=== PATIENT | female | born 1965 | race Caucasian/White ===

== ENCOUNTER → 2024-11-20 11:51 | Outpatient (REF) | payer OTHER, SELFPAY | LOC: ANHLAB 11:51 | PROVIDERS: Visit Provider Plastic Surgery | DX: C44.622 Squamous cell carcinoma of skin of right upper limb, including shoulder (principal) | CPT/HCPCS: 88305 ==

== ENCOUNTER → 2024-12-11 14:26 | Outpatient (REF) | payer OTHER, SELFPAY | LOC: ANHLAB 14:26 | PROVIDERS: Visit Provider Plastic Surgery | DX: R22.0 Localized swelling, mass and lump, head (principal) | CPT/HCPCS: 88305 ==

== ENCOUNTER 2024-12-28 01:59 | Day surgery (SDC) | payer OTHER, SELFPAY ==
[2024-12-14 15:56] VITALS: BMI 23.9
--- OUTSIDE RECORDS SUMMARY | 2024-12-28 02:04 | XMS_ITS | Referral Summary ---
Author Organization [facility] Physician Office Building [address] [place] [address] Care Team Providers Care Manager Specialty Name Role Phone Kailash Morse MD Unavailable Lizeth Daniels NP Primary Care Provider [phone]- [phone] Encounters Date Type Department Care Team Description 11/23/2024 Telephone [facility] [place] [facility] [address] [address] Kailash Morse MD Test Results 11/09/2024 Orders Only [facility] [place] [facility] [address] [address] Kailash Morse MD from Last 3 Months Allergies No known active allergies Medications lysine (L-LYSINE) 500 mg capsule take one by oral route twice a day 0 01/26/2012 Active aspirin (ASPIR-81) 81 mg tablet take 1 tablet by oral route every day 0 0 03/19/2015 Active famciclovir (FAMVIR) 500 mg tablet take 1 tablet (500MG) by oral route every 8 hours prn 0 03/19/2015 Active CALTRATE WITH VITAMIN D3 600 mg(1,500mg) -800 unit per tablet 09/04/2019 Active cholecalciferol (VITAMIN D-3) 5,000 unit capsule 09/04/2019 Active alendronate (FOSAMAX) 35 mg tablet 2 tablets (70 mg total) 09/04/2019 Active NOT IN DATABASE, PRESCRIPTION, Drug name: Restore soft gel capsul Dose: unknown Route: oral Frequency: BID Duration: Active vit D3-vit Y-srhayssfl-eri s [id number] eawg-kky-qs-mg tablet Take by mouth Active omega 5-vfh-zbb-fish oil 1,000 mg (120 mg-180 mg) capsule Active mvi, adult no.2 without vit K 3,300 unit-200 unit/10 mL solution Infuse into a venous catheter Active calcium dhbq-B3-ggbvksf um asia 133 mg calcium -133 unit-67 mg capsule Take by mouth Active Active Problems Problem Noted Date Diagnosed Date Non-toxic multinodular goiter 04/14/2014 Overview (03/03/2017): NONTOX MULTINODUL GOITER Assessment & Plan (07/19/2024 4:55 PM CDT): Chronic, stable without any obstructive symptoms Thyroid ultrasound today does not show any dominant, solid nodule that needs to be biopsied Follow-up in 3 years recommended Assessment & Plan (09/09/2021 4:30 PM CDT): Thyroid ultrasound done today, showed no difference in the size or appearance of the multiple bilateral nodules, when compared with ultrasound done in 2019. Will follow-up in 2 years Assessment & Plan (09/07/2019 4:09 PM CDT): Thyroid ultrasound done today See report No dominant nodules over 1 cm in size Check TSH If normal follow-up in 2- 3 year Social History Tobacco Use Types Packs/Day Years Used Date Smoking Tobacco: Never Smokeless Tobacco: Never Alcohol Use Standard Drinks/Week Comments No 0 (1 standard drink = 0.6 oz pur e alcohol) AUDIT-C Answer Date Recorded Q1: How often do you have a drink containing alcohol? Never 07/19/2024 Q2: How many drinks containi ng alcohol do you have on a typical day when you are drinking? Patient does not drink Q3: How often do you have si x or more drinks on one occasion? Never 07/19/2024 PHQ-2 Answer Date Recorded PHQ-2 Total Score (If total score is 3 or more points, staff should administer the PHQ-9) 0 07/19/2024 Comments Unknown Sex and Gender Information Value Date Recorded Sex Assigned at Not on file Legal Sex Female 1:16 AM INTERNATIONAL FIRST OFFICER Gender Identity Not on file Sexual Orientation Straight 07/19/2024 11 :17 AM CDT Last Filed Vital Signs Vital Sign Reading Time Taken Comments Blood Pressure 98/62 07/19/2024 11:18 AM CDT Pulse 70 07/19/2024 11:18 AM CDT Temperature - - Respiratory Rate 17 07/19/2024 11:18 AM CDT Oxygen Saturation - - Inhaled Oxygen Concentration - - Weight 69.2 kg (152 lb 9.6 oz) 07/19/2024 11:18 AM CDT Height 165.1 cm (5' 5 ) 07/19/2024 11:18 AM CDT Body Mass Index 25.39 07/19/2024 11:18 AM CDT Plan of Treatment Not on file Procedures Procedure Name Priority Date/Time Associated Diagnosis Comments TSH Routine 11/09/2024 12:53 PM INTERNATIONAL FIRST OFFICER SCREENING MAMMOGRAM BILATERAL W PRINCE 06/11/2020 6:57 AM CDT from Last 3 Months or Most Recently Relevant to Health Maintenance Results * TSH (11/09/2024 12:53 PM INTERNATIONAL FIRST OFFICER) TSH 0.74 0.40 - 4.50 mIU/L [facility] 11/09/2024 12:5 3 PM INTERNATIONAL FIRST OFFICER 11/09/2024 12:53 PM INTERNATIONAL FIRST OFFICER Kailash Morse MD LAB BLOOD ORDERABLES Final Resul t [facility] [address] [place] [address] * Screening Mammogram Bilateral W Prince (06/11/2020 6:57 AM CDT) Anatomical Region Laterality Modality Breast Bilateral Mammography 06/11/2020 7:23 AM CDT Narrative 06/18/2020 1:24 PM CDT Patient Name: ZE DE LA FUENTE ?Ordering Dr: Lizeth Daniels CNP ?? D.O.B: 1965 ? Exam Date: 06/11/ ?? 0657 ?? Age: 55 ?Sex: Female ? MR#: [id number] ?? Loc: ? RADIOLOGY REPORT ?? Order #[id number] ?? [facility] ? Aimee Bilat Screening 3D ? Signed ?- MG ?? BILATERAL DIGITAL SCREENING MAMMOGRAM 3D/2D WITH MEDIOLATERAL OBLIQUE ?? CRANIOCAUDAL: 06/11/2020 ?? The study was acquired using full field digital technology and interpreted from ?soft copy. ?2D digital mammographic views, as well as 3D digital tomosynthesis were ?? performed in the CC and MLO projections. ? CLINICAL: Routine mammogram. Patient denies any problems. Mother with breast ?? cancer. No personal history of breast cancer.Maternal and paternal aunt also ?? had breast cancer. ? COMPARISONS: Comparison is made to exams dated: ??02/23/2019 mammogram, 02/16/2019 ?mammogram, 12/08/2017 mammogram, 07/26/2014 mammogram, 07/13/2014 mammogram - ?? [facility], and 09/01/2019 breast MRI. ? BREAST TISSUE: The tissue of both breasts is heterogeneously dense, which may ?? obscure small masses. ? FINDINGS: ?? There are multiple, bilateral, similar-appearing, round and oval, ?? circumscribed masses. ??These have fluctuated in comparison with multiple prior ?? exams and are consistent with benign fluctuating cysts. They are considered to ?? be benign based on their multiplicity, bilaterality, and morphology. ??There are ?no suspicious masses, suspicious calcifications, or other suspicious findings ?? in either breast. ??There has been no suspicious interval change. ? IMPRESSION: BI-RAD 2 ??BENIGN ?? There is no mammographic evidence of malignancy. A 1 year screening mammogram ?? is recommended. ? The patient has been or will be contacted. ? We recommend annual screening mammography for women at average risk of breast ?? cancer beginning at age 40, based on guidelines of the [place] [employer] ?? [employer] (ACR Practice Parameter for the Performance of Screening and ?? Diagnostic Mammography) and [place] [employer]st[employer]ians and ?? Gynecologists. For women with an elevated risk of breast cancer, please refer ?? to the ACR Practice Parameter for specific screening recommendations. ? The patient will be entered into a reminder system with a target due date of 1 ?? year for her next screening exam. ? Electronically signed by: ?Yanick Lemons M.D. ? ab/:06/18/2020 13:24:45 ? Collector Of Port: Judith HASSAN(Juan)(M), [facility] ?? letter sent: Normal Exam ? Reading location: ?? BI-RADS: 2 Benign ? REPORT ELECTRONICALLY SIGNED IN OTHER VENDOR SYSTEM ?? Resulting Agency Comment O Procedure Note Yanick Lemons MD - 06/18/2020 Patient Name: ZE DE LA FUENTE Zelalemjose Dr: Lizeth Daniels CNP, D.O.B: 1965 Exam Date: 06/11/20 0657 Age: 55 Sex: Female MR#: [id number] Loc: RADIOLOGY REPORT Order #[id number] [facility] Aimee Bilat Screening 3D Signed - MG BILATERAL DIGITAL SCREENING MAMMOGRAM 3D/2D WITH MEDIOLATERAL OBLIQUE CRANIOCAUDAL: 06/11/2020 The study was acquired using full field digital technology andinterpreted from soft copy. 2D digital mammographic views, as well as 3D digital tomosynthesis were performed in the CC and MLO projections. CLINICAL: Routine mammogram. Patient denies any problems. Mother withbreast cancer. No personal history of breast cancer.Maternal and paternal auntalso had breast cancer. COMPARISONS: Comparison is made to exams dated: 02/23/2019 mammogram,02/16/2019 mammogram, 12/08/2017 mammogram, 07/26/2014 mammogram, 07/13/2014 mammogram- House, and 09/01/2019 breast MRI. BREAST TISSUE: The tissue of both breasts is heterogeneously dense, whichmay obscure small masses. FINDINGS: There are multiple, bilateral, similar-appearing, round andoval, circumscribed masses. These have fluctuated in comparison with multipleprior exams and are consistent with benign fluctuating cysts. They areconsidered to be benign based on their multiplicity, bilaterality, and morphology.There are no suspicious masses, suspicious calcifications, or other suspiciousfindings in either breast. There has been no suspicious interval change. IMPRESSION: BI-RAD 2 BENIGN There is no mammographic evidence of malignancy. A 1 year screeningmammogram is recommended. The patient has been or will be contacted. We recommend annual screening mammography for women at average risk ofbreast cancer beginning at age 40, based on guidelines of the [place] [employer] (ACR Practice Parameter for the Performance of Screening and Diagnostic Mammography) and [place] [employer] and Gynecologists. For women with an elevated risk of breast cancer, pleaserefer to the ACR Practice Parameter for specific screening recommendations. The patient will be entered into a reminder system with a target due dateof 1 year for her next screening exam. Electronically signed by: Yanick Lemons M.D. ab/:06/18/2020 13:24:45 Collector Of Port: Judith HASSAN (R)(Iban), [facility] letter sent: Normal Exam Reading location: BI-RADS: 2 Benign REPORT ELECTRONICALLY SIGNED IN OTHER VENDOR SYSTEM Lizeth Daniels NP IMG MAMMO PROCEDURES Final Result from Last 3 Months or Most Recently Relevant to Health Maintenance Insurance [facility] Care Teams Manager Specialty Relationship Specialty Start Date End Date Lizeth Daniels NP [address] [place] [address] PCP - General 06/11/20 [place] [id number] [facility] [address] [place] [address] Consulting Physician Endocrinology Diabetes & Metabolism 12/12/18
--- OUTSIDE RECORDS SUMMARY | 2024-12-28 02:04 | XMS_ITS | Clinical Summary ---
Author Organization [facility] Physician Office Building [address] [place] [address] Care Team Providers Care Profile Stitching Machine Operator Name Role Phone Kailash Morse MD Unavailable Lizeth Daniels NP Primary Care Provider +1- [phone] Allergies No known active allergies Medications lysine [...] oral Frequency: BID Duration: Active vit D3-vit E-ldtrstdry-doe s [phone] tlmo-wnk-iu-mg tablet Take by mouth Active omega 3-hjo-sjw-fish oil 1,000 mg (120 mg-180 mg) capsule Active mvi, adult no.2 without vit K 3,300 unit-200 unit/10 mL solution Infuse into a venous catheter Active calcium rqvp-W9-ennjriy um asia 133 mg calcium -133 unit-67 [...] If normal follow-up in 2- 3 year Encounters Date Type Department Care Team Description 11/23/2024 Telephone [facility] of [address] [address] Kailash Morse MD Test Results 11/09/2024 Orders Only [facility] of [address] [address] Kailash Morse MD from Last 3 Months Surgical History Surgery Date Site/Laterality Comments OTHER SURGICAL HISTORY 2011 polyp in uterus removed Medical History Medical History Date Comments Disorder of thyroid Thyroid dise ase Osteoporosis Family History Medical History Relation Name Comments Hypothyroidism Other Family histor y of Hypothyroidism; Relation Name Status Comments Other Social History Tobacco Use Types Packs/Day Years [...] on file Legal Sex Female 1:16 AM AS400 ADMINISTRATOR Gender Identity Not on file Sexual Orientation Straight 07/19/2024 11 :17 AM CDT Obstetrics History Last Filed Vital Signs Vital Sign Reading [...] 07/19/2024 11:18 AM CDT Plan of Treatment Health Maintenance Due Date Last Done Comments Cervical Cancer Screening 1965 Colon Cancer Screening-Colonoscopy 1965 Hepatitis C Screening 1965 Regular Well Visit/Exam 18-64 1982 Breast Cancer Screening-Mammogram 06/11/2021 06/11/2020 DTaP/Tdap/Td Vaccine (2 - Td or Tdap) 09/01/2022 09/01/2012, 10/22/1999 Influenza Vaccine (#1) 2024 9, 09/04/2018, 10/07/2017, Additional history exists Depression Screening 07/19/2025 07/19/2024, 09/09/2021, 09/07/2019 Zoster Vaccine Completed 04/14/2019, 12/14/2018 Pneumococcal vaccine <65 Aged Out No longer eligible based on patient's age to complete this topic Procedures Procedure Name Priority Date/Time Associated Diagnosis Comments TSH Routine 11/09/2024 12:53 PM AS400 ADMINISTRATOR SCREENING MAMMOGRAM BILATERAL W PRINCE 06/11/2020 6:57 AM CDT from Last 3 Months or Most Recently Relevant to Health Maintenance Results * TSH (11/09/2024 12:53 PM AS400 ADMINISTRATOR) TSH 0.74 0.40 - 4.50 mIU/L [facility] 11/09/2024 12:5 3 PM AS400 ADMINISTRATOR 11/09/2024 12:53 PM AS400 ADMINISTRATOR us Kailash Morse MD LAB BLOOD ORDERABLES Final Resul t [facility] [address] [place] [address] * Screening Mammogram Bilateral W Prince (06/11/2020 6:57 AM CDT) Anatomical Region Laterality Modality Breast Bilateral Mammography 06/11/2020 7:23 AM CDT Narrative 06/18/2020 1:24 PM CDT Patient Name: ZE DE LA FUENTE ?Ordering Dr: Lizeth Daniels CENTURA TECHNICAL LEAD SENIOR DEVELOPER ?? D.O.B: 1965 ? Exam Date: 06/11/20 ?? 0657 ?? Age: 55 ?Sex: Female ? MR#: [id number] ?? Loc: ? RADIOLOGY REPORT ?? Order #[id number] ?? [facility] ? Aimee Bilat Screening 3D ? Signed [...] mammogram, 07/26/2014 mammogram, 07/13/2014 mammogram - ?? [facility], and 09/01/2019 breast MRI. ? BREAST [...] age 40, based on guidelines of the [place] [employer] ?? [employer] (ACR Practice Parameter for the Performance of Screening and ?? Diagnostic Mammography) and [place] [employer]ians and ?? Gynecologists. For women with an elevated risk of breast cancer, please refer ?? to the ACR Practice Parameter for specific screening recommendations. ? The patient will be entered into a reminder system with a target due date of 1 ?? year for her next screening exam. ? Electronically signed by: ?Yanick Lemons M.D. ? ab/:06/18/2020 13:24:45 ? Drug Abuse Worker: Judith Shultz RT(R)(M), [facility] ?? letter sent: Normal Exam ? Reading location: ?? BI-RADS: 2 Benign ? REPORT ELECTRONICALLY SIGNED IN OTHER VENDOR SYSTEM ?? Resulting Agency Comment O Procedure Note Yanick Lemons MD - 06/18/2020 Patient Name: ZE DE LA FUENTE Bryanna Dr: Lizeth Daniels CNP, D.O.B: 1965 Exam Date: 06/11/20 0657 Age: 55 Sex: Female MR#: [id number] Loc: RADIOLOGY REPORT Order #[id number] [facility] Aimee Bilat Screening 3D Signed - MG [...] mammogram, 12/08/2017 mammogram, 07/26/2014 mammogram, 07/13/2014 mammogram- [place], and 09/01/2019 breast MRI. BREAST TISSUE: The [...] age 40, based on guidelines of the [place] [employer] (ACR Practice Parameter for the Performance of Screening and Diagnostic Mammography) and [place] [employer] and Gynecologists. For women with an elevated risk of breast cancer, pleaserefer to the ACR Practice Parameter for specific screening recommendations. The patient will be entered into a reminder system with a target due dateof 1 year for her next screening exam. Electronically signed by: Yanick Lemons M.D. ab/:06/18/2020 13:24:45 Drug Abuse Worker: Judith HAYES)(Iban), [facility] letter sent: Normal Exam Reading location: BI-RADS: 2 Benign REPORT ELECTRONICALLY SIGNED IN OTHER VENDOR SYSTEM Lizeth Daniels NP IMG MAMMO PROCEDURES Final Result from Last 3 Months or Most Recently Relevant to Health Maintenance Insurance [facility] Care Teams Profile Stitching Machine Operator Relationship Specialty Start Date End Date Lizeth Daniels NP [address] [place] [address] PCP - General 06/11/20 [place] [address] [address] [place] [address] Consulting Physician Endocrinology Diabetes & Metabolism 12/12/18
--- OUTSIDE RECORDS SUMMARY | 2024-12-28 02:05 | XMS_ITS | Continuity of Care Document ---
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 It does not include entries that were removed or entered in error. Problem Status Onset Date Problem Type Date of Resolution Comments Source Other specified counseling Active 10/24/20 Diagnosis -375 [facility] Other signs and symptoms in breast Active 10/24/20 Diagnosis - [facility] Other ovarian cyst, right side Active 10/24/20 Diagnosis - [facility] [place] Acne Active Condition [facility] Allergic rhinitis Active Condition [facility] Endometrial polyp with abnormal uterine bleeding Active Condition [facility] Eustachian tube disorder Active Condition [facility] Herpes simplex type 1 infection Active Condition [facility] Lateral epicondylitis of left humerus Active Condition [facility] Lateral epicondylitis of right humerus Active Condition [facility] Leiomyoma of uterus Active Condition [facility] Localized osteoporosis [[place]] Active Condition [facility] Nontoxic nodular thyroid goiter Active Condition [facility] Osteoarthritis Active Condition [facility] Overweight Active Condition [facility] Vitamin D deficiency Active Condition [facility] Lateral epicondylitis, right elbow Active Condition DoD Lateral epicondylitis, left elbow Active Condition DoD Nontoxic single thyroid nodule Active Condition DoD endometrial polyps Active Condition DoD Administrative Evaluation Services Inactive Condition DoD Outpatient Physician Consultation Active Condition DoD menometrorrhagia Active Condition DoD menopause Active Condition DoD nontoxic solitary thyroid nodule Active Condition DoD telogen effluvium Inactive Condition DoD Alopecia Inactive Condition DoD visit for: screening exam malignant neoplasm breast Inactive Condition DoD routine gynecological exam Inactive Condition DoD pharyngitis acute Inactive Condition DoD visit for: issue repeat prescription for medication Inactive Condition DoD ovarian cyst right Active Condition DoD menorrhagia Active Condition DoD dysfunctional uterine bleeding Active Condition DoD Test Negative Inactive Condition DoD ovarian cyst Active Condition DoD uterine neoplasm, benign leiomyoma Active Condition DoD vitamin D deficiency Active Condition DoD irregular length of menstrual periods Active Condition DoD visit for: single system exam gynecological Inactive Condition DoD visit for: refer patient without exam or treatment Inactive Condition DoD sebaceous cyst Active Condition DoD lump in / on the skin Active Condition DoD Family history of malignant neoplasm of breast Active Condition DoD thyroid disorders Active Condition DoD herpes simplex Inactive Condition DoD limb pain Active Condition DoD neck sprain Inactive Condition DoD overweight Active Condition DoD lymphadenopathy Active Condition DoD dermatitis Active Condition DoD skin: rash [as Sx] Active Condition DoD visit for: follow-up exam Active Condition Pt has made full recovery. 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 Pt may now rely on Essure as control method. DoD visit for: sterilization Inactive Condition DoD conjunctivitis Inactive Condition DoD upper respiratory infection acute Inactive Condition DoD Mammogram Screening Inactive Condition D oD Cervical Pap Smear Inactive Condition Do D Pelvic Exam (Internal) Active Condition DoD otitis media Inactive Condition tx empiricially DoD bronchitis Active Condition continue zyrtec-D as previously prescribed DoD eustachian tube dysfunction Active Condition Pt to continue to take Zyrtec-D and will start pt on Flonase - pt to follow-up if not doing better in 5 days. DoD otitis media acute serous Inactive Condition DoD Need For Vaccination Hepatitis B Inactive Condition DoD acne Active Condition DoD visit for: issue repeat prescription Inactive Condition pt to ca ll PCM for refill of meds DoD routine gynecological exam with cervical pap smear Inactive Condition DoD herpes simplex type I Active Condition DoD visit for: screening exam for malignant neoplasm cervix Active Condition DoD Gynecologic Services Contraceptive Management Inactive Condition discussed bc methods; pt doesn;t desire anything hormonal; would like to consider essure; appt with MD scheduled to discuss essure DoD visit for: administrative purpose Inactive Condition DoD Need For Vaccination Against Influenza Active Condition DoD sudden redness of the skin (flushing) Inactive Condition Check la bs for metabolic cause. DoD allergic rhinitis Active Condition Qiu spect is cause of eye swelling. Rx as below. SE d/w pt. DoD visit for: contraceptive surveillance Active Condition REFERRAL TO SPEECH THERAPY TEACHER FOR EVALUATION FOR BTL DoD Medications Combined list of outpatient medications from Department of Defense and Veterans Affairs facilities.Medications provided include 1) outpatient medications from the last 15 months, and 2) patient-reported medications. Medication Details Route Status Patient Instructions Prescription Expires Prescription Number Last Dispense Date Ordering Provider Order Date Order Qty Source [facility] oral capsule 0 total refill(s ), Maintena cte Ordered 0055C-[address] [place] [address] alendronate (U/D) 70 MG ORAL TAB Take on empty stomach. Take only with water.Ta ke with water first thing in AM. Stay up 30 min. 05/18/2024 [id number] 3 [address] [place] [address] ([facility]) alendronate 70 mg oral tablet TAKE ONE TABLET BY MOUTH ONCE A WEEK DIRECTED , # 12 EA, 1 total refill(s ), Acute Discont inued 05/19/2023 12.0 Ambulat ory Pharmac y alendronate 70 mg oral tablet TAKE ONE TABLET BY MOUTH ONCE A WEEK DIRECTED , Oral, every week, # 12 EA, 4 total refill(s ), Acute, Pharmacy : [facility] Oral (given by mouth) Complet ed 05/19/2024 12.0 0055C-3 [facility] [place] alendronate 70 mg oral tablet 12 tab(s), 0 Refill(s ), 0 total refill(s ), Soft Stop Cancele d 05/29/2024 0055C-3 [facility] [place] aspirin 81 mg oral delayed release tablet 81 mg, ORAL, 1 Refill(s ), 0 total refill(s ), Soft Stop Discont inued 05/29/2024 0055C-3 [facility] [place] aspirin 81 mg oral delayed release tablet 1 tab(s), Oral, Daily, # 90 tab(s), 3 total refill(s ), Maintena nce, Pharmacy : [facility] Oral (given by mouth) Ordered 90.0 0055C-3 [facility] [place] ASPIRIN EC (U/D) 81 MG ORAL TBEC Take with food/mil amanda.Swallo w whole. 05/18/2024 [id number] 3 [address] [place] [address] ([facility]) Aspirin Low Dose 81 mg oral delayed release tablet 90 tab(s), 0 total refill(s ), Soft Stop Discont inued 05/19/2023 0055C-3 [facility] [place] calcium (as carbonate) 500 mg oral tablet See Instruct ions, t1 tab po bid, # 180 tab(s), 3 total refill(s ), Maintena nce, Pharmacy : [facility] Ordered 180.0 [facility] calcium (as carbonate) 600 mg oral tablet 180 tab(s), 0 total refill(s ), Soft Stop Discont inued 05/19/2023 0055C-[address] [place] [address] [place] Calcium Carbonate (Elemental Calcium 500 mg) Tablet 1,250 mg Oral 05/18/2024 [id number] 3 2023 180 [facility] [place] RUIZ ([facility]) Caltrate 600 + D oral tablet 0 Refill(s ), 0 total refill(s ), Soft Stop Discont inued 05/29/2024 0055C-3 [facility] [place] CertaVite Senior oral tablet 90 tab(s), 0 total refill(s ), Soft Stop Discont inued 05/29/2024 0055C-[address] [place] [address] [place] cholecalcif olvin 125 mcg (5000 intl units) oral capsule 0 Refill(s ), 0 total refill(s ), Soft Stop Discont inued 05/29/2024 0055C-[address] [place] [address] [place] diclofenac 1% topical gel See instruct ions, Apply 2 grams (upper extremit ies) or 4 grams (lower extremit ies) to affected area topicall y four times daily as needed for pain. Max total body dose of 32 grams per day, # 100 g, 0 total refill(s ), Maintena nce Discont inued 05/19/2023 100.0 0055C-[address] [place] [address] [place] FAMCICLOVIR (FAMCICLOVI R), 500 MG, TABLET, ORAL, WIDIP, 30 ea. BOTTLE Active [id number] 2023 30 Pharmac y [facility] Service Facilit y famciclovir 500 mg oral tablet 30 EA, 0 Refill(s ), 0 total refill(s ), Soft Stop Ordered 0055C-[address] [place] [address] [place] famciclovir 500 mg oral tablet 3 total refill(s ) Discont inued 05/29/2024 No Facilit y Access FLUARIX QUAD 4072-2267 (influenza virus vaccine quadrival 8513-4019(6 mos and up)/PF), 60MCG/.5ML, FLUARIX QUAD 202 2 (influen za virus vaccine quadriva l 2020- 2(6 mos and up)/PF), 60MCG/.5 ML, Start Date: 09/16/21 Stop Date: 05/19/23 Status: Disconti nued Discont inued 05/19/2023 No Facilit y Access FLUCELVAX QUAD (flu vaccine quad (4 years and older)cell derived/PF) , 60MCG/.5ML FLUCELVA X QUAD 1 (flu vaccine quad 1(4 years and older)ce ll derived/ PF), 60MCG/.5 ML Start Date: 09/11/20 Stop Date: 05/19/23 Status: Disconti nued Discont inued 05/19/2023 No Facilit y Access Fosamax 35 mg oral tablet tab(s), Oral, every week, 0 total refill(s ), Maintena nce Oral (given by mouth) Discont inued 05/12/2023 0055C-3 [facility] Fosamax 70 mg oral tablet 1 tab(s), Oral, every week, with 6 to 8 ounces plain water, at least 30 minutes before first food, beverage , or medicati on of the day, # 12 tab(s), 3 total refill(s ), Maintena nce, Pharmacy : [facility] Oral (given by mouth) Ordered 12.0 0055C-3 [facility] lysine 500 mg oral capsule 500 mg, Oral, BID, 0 total refill(s ), Maintena nce Oral (given by mouth) Ordered 0055C-3 [facility] magnesium amino acids chelate Oral, 0 Refill(s ), 0 total refill(s ), Soft Stop Oral (given by mouth) Discont inued 10/24/2024 0055C-3 [facility] miscellaneo us medication 90 tab(s), 0 total refill(s ), Soft Stop Discont inued 05/19/2023 0055C-3 [facility] Motrin IB 200 mg oral tablet 2 tab(s), Oral, every 4 hr, PRN fever, # 120 tab(s), 0 total refill(s ), Maintena nce Oral (given by mouth) Ordered 120.0 0055C-3 [facility] [place] Multivitami n oral tablet 1 tab(s), Oral, Daily, # 90 tab(s), 3 total refill(s ), Maintena [facility], Pharmacy : [facility] Oral (given by mouth) Ordered 90.0 [facility] multivitami [facility] with minerals tablet multivit asher with minerals tablet Start Date: 04/24/21 Stop Date: 05/19/23 Status: Disconti nued Discont inued 05/19/2023 No Facilit y Access omega-3 polyunsatur ated fatty acids 1000 mg oral capsule omega-3 polyunsa turated fatty acids 1000 mg oral capsule Start Date: 07/14/21 Status: Ordered Ordered No Facilit y Access Oyster Hailey 1250 mg (500 mg elemental calcium) oral tablet 180 tab(s), 0 Refill(s ), 0 total refill(s ), Soft Stop Discont inued 05/29/2024 0055C-3 [facility] [place] Vitamin D2 50 mcg (2000 intl units) oral capsule 2 cap(s), Oral, Daily, WH increase to 5000u pt has 1000u in her other daily MVI, 0 total refill(s ), Maintena nce Oral (given by mouth) Ordered 0055C-3 [facility] [place] Vitamin D3 0 total refill(s ), Maintena nce Discont inued 05/19/2023 0055C-3 [facility] [place] Vitamin D3 125 mcg (5000 intl units) oral capsule 1 cap(s), Oral, Daily, with food, # 90 cap(s), 2 total refill(s ), Maintena [facility], Pharmacy : [facility] Oral (given by mouth) Ordered 90.0 0055C-3 [facility] [place] Vitamin D3 50 mcg (2000 intl units) oral tablet 90 tab(s), 0 total refill(s ), Soft Stop Discont inued 10/24/2024 0055C-3 [facility] [place] Allergies, Adverse Reactions, Alerts Combined list of allergies from Department of Defense and Veterans Affairs facilities. It does not include entries that were removed or entered in error. Substance Category Reaction Severity Reaction type Status Date Reported Comments Source No Known Allergies Drug allergy (disorder) active 05/21/2023 [facility] RUIZ ([facility]) Immunizations Combined list of available immunizations from the Department of Defense and Veterans Affairs facilities. Immunization Series Date Given Administered By Site Reaction Lot Number CVX Code Drug Supply Requirements Officer Status Comments Source RSV vaccine preF3, recombinant 2023 DARLENERBRUNN ER 303 complet ed Result Comment: Route: Unknown Manufactu rer: OTH (SKB) 0055C-[address] [place] [address] [place] Influenza, injectable, MDCK-pf 2023 DARLENERBRUNN ER 153 complet ed Result Comment: Route: Unknown Manufactu rer: OTH (SEQ) 0055C-[address] [place] [address] [place] Influenza, inj, MDCK, quadrivalent- pf 2022 DARLENERBRUNN ER 171 complet ed Result Comment: Route: Unknown Manufactu rer: OTH (SEQ) 0055C-[address] [place] [address] [place] COVID-19 vaccine(Comir carolyn 12y+) 2022 DARLENERBRUNN ER 309 complet ed Result Comment: Route: Unknown Manufactu rer: OT (PFR) 0055C-[address] [place] [address] [place] tetanus, diphtheria, acellular pertu is 2021 DARLENERBRUNN ER 115 complet ed Result Comment: Route: Unknown Manufactu rer: H (SKB) 0055C-[address] [place] [address] [place] COVID-19 vaccine(Pfize r Bival 12yr+) 2021 DARLENERBRUNN ER 300 complet ed Result Comment: Route: Unknown Manufactu rer: OTH (PFR) 0055C-[address] [place] [address] [place] Influenza, inj, MDCK, quadrivalent- pf 2021 DARLENERBRUNN ER 171 complet ed Result Comment: Route: Unknown Manufactu rer: OTH (SEQ) 0055C-[address] [place] [address] COVID Vaccine Pfizer 2020 DARLENERBRUNN ER 208 complet ed Result Comment: Unit: Unknown Manufactu rer: [facility] [place] (P[facility] 0055C-[address] [place] [address] COVID-19, mRNA, LNP-S, PF, 30 mcg/0.3 mL dose 2020 [facility] [place] (PFR) Not Given COVID-19, mRNA, LNP-S, PF, 30 mcg/0.3 mL dose DoD influenza, injectable, quadrivalent- pf 2020 DARLENERBRUNN ER 150 complet ed Result Comment: Unit: Unknown Manufactu rer: () 5C-3 [facility] Gay influenza, injectable, quadrivalent, preservative free 2020 [place], () Not Given influenza , injectabl e, quadrival ent, preservat mykel free DoD influenza virus vaccine, unspecified 2019 DARLENERBRUNN ER 88 complet ed Result Comment: Route: Unknown Manufactu rer: OT (unk) 5C-3 [facility]- [place] Influenza, inj, MDCK, quadrivalent- pf 2019 DARLENERBRUNN ER 171 complet ed Result Comment: Unit: Unknown Manufactu rer: () 5C-3 [facility] [place] influenza virus vaccine, inactivated 2019 DARLENERBRUNN ER 88 complet ed Result Comment: Route: Unknown Manufactu rer: [facility] (SEQ) 5C-3 [facility]OLA- [place] Influenza, injectable, MDCK, preservative free, quadrivalent 2019 ALUL, () Not Given Influenza , injectabl e, MDCK, preservat mykel free, quadrival ent DoD influenza, injectable, quadrivalent- pf 2018 MS.DARLENEBRU NNER 150 complet ed Result Comment: Route: Unknown Manufactu rer: [facility] (SKB) 5C-[address] [place] [address]- [place] zoster vaccine, inactivated 2018 MS.DARLENEBRU NNER 187 complet ed Result Comment: Route: Unknown Manufactu rer: [facility] (SKB) 0055C-3 [facility] [place] zoster vaccine, inactivated 2018 MS.DARLENEBRU NNER 187 complet ed Result Comment: Unit: Unknown Manufactu rer: () 5C-3 [facility] [place] zoster recombinant 2018 ALUL, () Not Given zoster recombina nt DoD influenza, injectable, quadrivalent- pf 2017 MS.DARLENEBRU NNER 150 complet ed Result Comment: Route: Unknown Manufactu rer: [facility] (SEQ) 5C-3 [facility]ASH[facility]- [place] influenza, injectable, quadrivalent- pf 2015 Greyson t Arm [id number] Gl[employer]oSmithK[employer] ne complet ed influenza , injectabl e, quadrival ent-pf 09/23/16 Given Ambulat ory Pharmac y Influenza, injectable, quadrivalent, preservative free 1 2015 Unknown, Provider [id number] [facility] (SK) complet ed Influenza , injectabl e, quadrival ent, preservat mykel free DoD influenza, seasonal, injectable-pf 2014 DONOVAN ER 140 complet ed Result Comment: Unit: Unknown Manufactu rer: () 0055C-[address] [place] [address] Influenza, seasonal, injectable, preservative free 2014 TONYA, () Not Given Influenza , seasonal, injectabl e, preservat mykel free DoD influenza, seasonal, injectable 2013 zzLef t Arm [id number] Novartis Pharm[employer]ica complet ed influenza , seasonal, injectabl e 09/21/14 Given Ambulat ory Pharmac y Influenza, seasonal, injectable 1 2013 Unknown, Provider [id number] Novartis Pharmaceutica l Raquel. (NOV) complet ed Influenza , seasonal, injectabl e DoD influenza, seasonal, [facility]able [id number] sanofi pasteur complet ed influenza , seasonal, injectabl e 09/01/12 Given Ambulat ory Pharmac y tetanus, diphtheria, acellular pertu is 2011 zzLef t Arm [id number] 115 [facility] complet ed tetanus, diphtheri a, acellular pertussis 09/01/12 Given Ambulat ory Pharmac y tetanus toxoid, reduced diphtheria toxoid, and acellular pertu is vaccine, adsorbed 1 2011 Unknown, Provider [id number] 115 [facility] (B) complet ed tetanus toxoid, reduced diphtheri a toxoid, and acellular pertussis vaccine, adsorbed DoD Influenza, seasonal, injectable 8 2011 Unknown, Provider [id number] Sanofi Pasteur ([facility]) complet ed Influenza , seasonal, injectabl e DoD influenza, seasonal, injectable-pf 2010 zzLef t Arm [id number] sanofi pasteur complet ed influenza , seasonal, injectabl e-pf 10/08/11 Given Ambulat ory Pharmac y Influenza, seasonal, injectable, preservative free 7 2010 Unknown, Provider [id number] Sanofi Pasteur ([facility]) complet ed Influenza , seasonal, injectabl e, preservat mykel free DoD influenza virus vaccine, live 2008 [id number] [employer] complet ed influenza virus vaccine, live 09/30/09 Given Ambulat ory Pharmac y influenza virus vaccine, live, attenuated, for intranasal use 1 2008 Unknown, Provider [id number] 111 [employer] (MED) complet ed influenza virus vaccine, live, attenuate d, for intranasa l use DoD influenza virus vaccine,split 2007 zzLef t Arm [id number] 15 sanofi pasteur complet ed influenza virus vaccine,s plit 11/06/08 Given Ambulat ory Pharmac y influenza virus vaccine, split virus (incl. purified surface antigen)-reti red CODE 1 2007 Unknown, Provider [id number] 15 Sanofi Pasteur ([facility]) complet ed influenza virus vaccine, split virus (incl. purified surface antigen)- retired CODE DoD influenza virus vaccine,split 2005 zzLef t Arm [id number] 15 GlaxoSmithKli ne complet ed influenza virus vaccine,s plit 11/09/06 Given Ambulat ory Pharmac y influenza virus vaccine, split virus (incl. purified surface antigen)-reti red CODE 1 2005 Unknown, Provider [id number] 15 Cyndy (LAUREN) complet ed influenza virus vaccine, split virus (incl. purified surface antigen)- retired CODE [facility] hepatitis B adult vaccine 2005 zzLef t Arm [id number] 43 GlaxoSmithKli ne complet ed hepatitis B adult vaccine 09/01/06 Given Ambulat ory Pharmac y HepB, Adult 2005 LORILENERBRUNN ER [id number] 43 complet ed Result Comment: Route: Intramusc ular(IM) Manufactu rer: [place] vo (LAUREN) 0055C-3 [facility] [place] hepatitis B vaccine, adult dosage 2 2005 Unknown, Provider [id number] 43 Cyndy (LAUREN) complet ed hepatitis B vaccine, adult dosage [facility] hepatitis B adult vaccine 2005 zzLef t Arm [id number] 43 GlaxoSmithKli ne complet ed hepatitis B adult vaccine 8/17/06 Given Ambulat ory Pharmac y HepB, Adult 2005 DONOVAN ER [id number] 43 complet ed Result Comment: Route: Intramusc ular(IM) Manufactu rer: [employer] [employer] (LAUREN) 0055C-3 [facility] [place] hepatitis B vaccine, adult dosage 1 2005 Unknown, Provider [id number] 43 [employer]line (SKB) complet ed hepatitis B vaccine, adult dosage DoD influenza virus vaccine,split 2004 zzRig Arm [id number] 15 sanofi pasteur complet ed influenza virus vaccine,s plit 10/19/05 Given Ambulat ory Pharmac y influenza virus vaccine, split virus (incl. purified surface antigen)-reti red CODE 1 2004 Unknown, Provider [id number] 15 Sanofi Pasteur ([facility]) complet ed influenza virus vaccine, split virus (incl. purified surface antigen)- retired CODE DoD influenza virus [facility], [facility] virus [id number] Novartis Pharmaceutica ls complet ed influenza virus vaccine, whole virus 09/20/03 Given Ambulat ory Pharmac y influenza virus vaccine, whole virus 1 2002 Unknown, Provider [id number] [employer] ls (PWJ) complet ed influenza virus vaccine, whole virus DoD influenza virus vaccine, whole virus [facility] [id number] [employer] complet ed influenza virus vaccine, whole virus 10/04/02 Given Ambulat ory Pharmac y influenza virus vaccine, whole virus 1 2001 Unknown, Provider [id number] 16 [facility] (WAL) complet ed influenza virus vaccine, whole virus [facility] tetanus-dipht h toxoids (Td) adult/adol [facility] [id number] complet ed tetanus-d iphth toxoids (Td) adult/ado l 10/22/99 Given Ambulat ory Pharmac y tetanus and diphtheria toxoids, adsorbed, preservative free, for adult use (2 Lf of tetanus toxoid and 2 Lf of diphtheria toxoid) 1 1998 Unknown, Provider [id number] () complet ed tetanus and diphtheri a toxoids, adsorbed, preservat myekl free, for adult use (2 Lf of tetanus toxoid and 2 Lf of diphtheri a toxoid) DoD Results Combined list of recent chemistry, hematology and other laboratory results from Department of Defense and Veterans Affairs, ranging from 15 months to all on record, depending upon the facility. Order Name Results Value Reference Range Date Interpretation Specimen Comments Source Chemistry Vitamin D 25 OH 69 ng/mL 30 - 100 12/19 N Interpretiv e Data: Classificat ion of Vitamin D Status: Deficient: <20 ng/mL Insufficien t: 20-29 ng/mL Sufficient: 30-100 ng/mL Possible Toxicity: >100 ng/mL This assay is for the quantitativ e determinati on of total 25 (OH) vitamin D. It is intended as an aid in the determinati on of vitamin D sufficiency . Results should always be interpreted in conjunction with the patient's medical history, clinical presentatio n, and other findings. Testing performed by [facility] [facility] smith. Ambulator y Pharmacy Chemistry Triglycerid es 60 mg/dL 7 - 149 12/19 N Interpretiv e Data: AGES 0-9: Desirable: < 75 mg/dL Borderline High: 75-99 mg/dL High: >/= 100 mg/dL AGES 10-19: Desirable: < 90 mg/dL Borderline High: 90-129 mg/dL High: >/= 130 mg/dL ADULTS: Desirable: < 150 mg/dL Borderline High: 150-199 mg/dL High: >/= 240 mg/dL Very High: >/= 500 mg/dL Amb[facility] Pharm[facility] Chemistry LDL/HDL 2 12/19 [facility] Chemistry LDL 145 mg/dL 100 - 130 12/19 H Interpretiv e Data: AGES 0-19: Desirable: < 110 mg/dL Borderline High: 110-129 mg/dL High: >/= 130 mg/dL ADULTS: Desirable: <100 mg/dL Near/above optimal: 100-130 mg/dL Borderline High: 131-159 mg/dL High: 160-189 mg/dL Very High: e190 mg/dL Ambulator [facility] Pharmacy Chemistry HDL Cholesterol 62 mg/dL 40 - 59 12/19 H Interpretiv e Data: HDL (HIGH DENSITY LIPOPROTEIN ): ADULTS: Low: < 40 mg/dL High: >/= 60 mg/dL AGES 0 -19: Low: < 40 mg/dL Borderline Low: 40 - 45 mg/dL Acceptable: > 45 mg/dL [facility] Cholesterol Total 210 mg/dL 12/19 H Interpretiv e Data: According to the [place] [employer] : AGES 0-19: Desirable: < 170 mg/dL Borderline High: 170-199 mg/dL High Blood Cholesterol : >/= 200 mg/dL ADULTS: Desirable < 200 mg/dL Borderline High: 200-239 mg/dL High Blood Cholesterol : >/= 240 mg/dL [facility] Chol/HDL 3 mg/dL 12/19 [facility] eGFR CKD EPI 103 mL/min /1.73_ m2 09/01 Interpretiv e Data: Estimated Glomerular Filtration Rate (eGFR) calculated using the 2020 Chronic Kidney Disease-Epi demiology (CKD-EPI) Collaborati on creatinine equation; units of measure are mL/min/1.73 m2. Results are only valid for adults (>=18 years) whose serum creatinine is in steady state. eGFR calculation s are not valid for patients with acute kidney injury and for patients on dialysis. Creatinine- based estimates of kidney function may also be inaccurate in patients with reduced creatinine generation due to decreased muscle mass (e.g., malnutritio n, severe hypoalbumin emia, sarcopenia, chronic neuromuscul ar disease, amputations , severe heart failure or liver disease) and in patients with increased creatinine generation due to increased muscle mass (e.g., muscle builders, anabolic steroids) or increased dietary intake. CKD is diagnosed based on abnormaliti es of kidney structure or function, present for >3 months, with implication s for health and disease. CKD is classified and staged based on cause, eGFR and albuminuria (quantified as urine albumin to creatinine ratio). An eGFR >60 mL/min/1.73 m2 in the absence of increased urine albumin excretion or structural abnormaliti es does not CKD. eGFR provides only an estimate of measured GFR within +/- 30% for most patients. As mentioned, nutritional status and muscle mass, among many factors, may lead to inaccuracy in the estimate. Consider ordering the creatinine- cystatin C panel if better accuracy is needed for clinical decision-masoud kwan. eGFR (mL/min/1.7 3 m2) CKD stage Interpretat ion Normal 60-89 Mild decrease 45-59 Mild to moderate decrease 30-44 Moderate to severe decrease 15-29 Severe decrease <15 Kidney failure [facility] Hemoglobin A1c 5.3 % 4.0 - 5.6 09/01 N Interpretiv e Data: Normal: 4.0 - 5.6% Increased Risk: 5.7 - 6.4% Diabetic Range: e 6.5% For patients without diabetes, the normal range for the hemoglobin A1c test is between 4% and 5.6%. Hemoglobin A1c levels between 5.7% and 6.4% indicate increased risk of diabetes, and levels of 6.5% or higher indicate diabetes. Because studies have repeatedly shown that out-of-cont rol diabetes results in complicatio ns from the disease, the goal for people with diabetes is a hemoglobin A1c less than 7%. The higher the hemoglobin A1c, the higher the risks of developing complicatio ns related to diabetes. If confirmatio n is needed, consider recalling the patient and ordering Hemoglobin Electrophor esis. [facility] eAvg Glucose 105 mg/dL 09/01 [facility] Triglycerid es 78 mg/dL 7 - 149 09/01 N Interpretiv e Data: AGES 0-9: Desirable: < 75 mg/dL Borderline High: 75-99 mg/dL High: >/= 100 mg/dL AGES 10-19: Desirable: < 90 mg/dL Borderline High: 90-129 mg/dL High: >/= 130 mg/dL ADULTS: Desirable: < 150 mg/dL Borderline High: 150-199 mg/dL High: >/= 240 mg/dL Very High: >/= 500 mg/dL [facility] LDL/HDL 3 09/01 [facility] LDL 137 mg/dL 100 - 130 09/01 H Interpretiv e Data: AGES 0-19: Desirable: < 110 mg/dL Borderline High: 110-129 mg/dL High: >/= 130 mg/dL ADULTS: Desirable: <100 mg/dL Near/above optimal: 100-130 mg/dL Borderline High: 131-159 mg/dL High: 160-189 mg/dL Very High: e190 mg/dL [facility] HDL Cholesterol 52 mg/dL 40 - 59 09/01 N Interpretiv e Data: HDL (HIGH DENSITY LIPOPROTEIN ): ADULTS: Low: < 40 mg/dL High: >/= 60 mg/dL AGES 0 -19: Low: < 40 mg/dL Borderline Low: 40 - 45 mg/dL Acceptable: > 45 mg/dL [facility] Cholesterol Total 195 mg/dL 09/01 N Interpretiv e Data: According to the [place] [employer] : AGES 0-19: Desirable: < 170 mg/dL Borderline High: 170-199 mg/dL High Blood Cholesterol : >/= 200 mg/dL ADULTS: Desirable < 200 mg/dL Borderline High: 200-239 mg/dL High Blood Cholesterol : >/= 240 mg/dL [facility] Chol/HDL 4 mg/dL 09/01 [facility] Phosphorus 3.1 mg/dL 2.3 - 4.7 09/01 N [facility] Sodium 141 mmol/L 136 - 145 09/01 N [facility] Potassium Lvl 4.1 mmol/L 3.5 - 5.1 09/01 N [facility] Glucose Lvl 88 mg/dL 74 - 99 09/01 N [facility] Creatinine Level 0.60 mg/dL 0.57 - 1.11 09/01 N [facility] CO2 27 mmol/L 22 - 29 09/01 N [facility] Chloride 106 mmol/L 98 - 107 09/01 N [facility] Calcium 9.4 mg/dL 8.4 - 10.2 09/01 N [facility] BUN/Creat Ratio 33 mg/dL 12 - 20 09/01 H [facility] BUN 20 mg/dL 7 - 20 09/01 N [facility] Albumin 3.70 g/dL 3.50 - 5.20 09/01 N [facility] AGAP 8.00 0.00 - 15.00 09/01 N [facility] Vitamin D 25 OH 44.9 ng/mL 30.0 - 100.0 05/29 N Interpretiv e Data: Classificat ion of Vitamin D Status: Deficient: <20 ng/mL Insufficien t: 20-29 ng/mL Sufficient: 30-100 ng/mL Possible Toxicity: >100 ng/mL This assay is for the quantitativ e determinati on of total 25 (OH) vitamin D. It is intended as an aid in the determinati on of vitamin D sufficiency . Results should always be interpreted in conjunction with the patient's medical history, clinical presentatio n, and other findings. Testing performed by [employer]. [facility] TSH 0.588 mIU/L 0.270 - 4.200 05/29 N Interpretiv e Data: Recommend: TPO/Thyrope roxidase Antibody when TSH result is > 4.2 uIU/mL [facility] Triglycerid es 94 mg/dL 7 - 149 05/29 N Interpretiv e Data: AGES 0-9: Desirable: < 75 mg/dL Borderline High: 75-99 mg/dL High: >/= 100 mg/dL AGES 10-19: Desirable: < 90 mg/dL Borderline High: 90-129 mg/dL High: >/= 130 mg/dL ADULTS: Desirable: < 150 mg/dL Borderline High: 150-199 mg/dL High: >/= 240 mg/dL Very High: >/= 500 mg/dL [facility] LDL/HDL 2 05/29 [facility] LDL 173 mg/dL 100 - 130 05/29 H Interpretiv e Data: AGES 0-19: Desirable: < 110 mg/dL Borderline High: 110-129 mg/dL High: >/= 130 mg/dL ADULTS: Desirable: <100 mg/dL Near/above optimal: 100-130 mg/dL Borderline High: 131-159 mg/dL High: 160-189 mg/dL Very High: e190 mg/dL [facility] HDL Cholesterol 71 mg/dL 40 - 59 05/29 H Interpretiv e Data: HDL (HIGH DENSITY LIPOPROTEIN ): ADULTS: Low: < 40 mg/dL High: >/= 60 mg/dL AGES 0 -19: Low: < 40 mg/dL Borderline Low: 40 - 45 mg/dL Acceptable: > 45 mg/dL [facility] Cholesterol Total 217 mg/dL 05/29 H Interpretiv e Data: According to the [place] [employer] : AGES 0-19: Desirable: < 170 mg/dL Borderline High: 170-199 mg/dL High Blood Cholesterol : >/= 200 mg/dL ADULTS: Desirable < 200 mg/dL Borderline High: 200-239 mg/dL High Blood Cholesterol : >/= 240 mg/dL [facility] Chol/HDL 3 mg/dL 05/29 [facility] Hemoglobin A1c 5.7 % 4.0 - 5.6 05/29 H Interpretiv e Data: Normal: 4.0 - 5.6% Increased Risk: 5.7 - 6.4% Diabetic Range: e 6.5% For patients without diabetes, the normal range for the hemoglobin A1c test is between 4% and 5.6%. Hemoglobin A1c levels between 5.7% and 6.4% indicate increased risk of diabetes, and levels of 6.5% or higher indicate diabetes. Because studies have repeatedly shown that out-of-cont rol diabetes results in complicatio ns from the disease, the goal for people with diabetes is a hemoglobin A1c less than 7%. The higher the hemoglobin A1c, the higher the risks of developing complicatio ns related to diabetes. If confirmatio n is needed, consider recalling the patient and ordering Hemoglobin Electrophor esis. [facility] eAvg Glucose 117 mg/dL 05/29 [facility] Vital Signs Combined list of inpatient and outpatient Vital Signs from Department of Defense and Veterans Affairs, ranging from 12 months to all on record, depending upon the facility. Vital Sign Value Date Comments Source Systolic Blood Pressure 114mm[Hg] 05/12/2023 20:09:00 Ambulatory Pharmacy Diastolic Blood Pressure 65mm[Hg] 05/12/2023 20:09:00 Ambulatory Pharmacy Mean Arterial Pressure, Calc 81mm[Hg] 05/12/2023 20:09:00 Ambulatory [facility] Peripheral Pulse Rate 90bpm 05/12/2023 20:09:00 Ambulatory Pharmacy Respiratory Rate 16br/min 05/12/2023 20:09:00 Ambulatory Pharmacy Temperature Oral 36.8Cel 05/12/2023 20:09:00 Ambulatory Pharmacy Systolic Blood Pressure 118mm[Hg] 05/29/2024 18:05:00 Ambulatory Pharmacy Diastolic Blood Pressure 74mm[Hg] 05/29/2024 18:05:00 Ambulatory Pharmacy Mean Arterial Pressure, Calc 89mm[Hg] 05/29/2024 18:05:00 Ambulatory P harmacy Peripheral Pulse Rate 62bpm 05/29/2024 18:05:00 Ambulatory Pharmacy Respiratory Rate 16br/min 05/29/2024 18:05:00 Ambulatory Pharmacy Temperature Oral 36.8Cel 05/29/2024 18:05:00 Ambulatory Pharmacy Systolic Blood Pressure 119mm[Hg] 09/15/2024 15:56:00 Ambulatory Pharmacy Diastolic Blood Pressure 80mm[Hg] 09/15/2024 15:56:00 Ambulatory Pharmacy Mean Arterial Pressure, Calc 93mm[Hg] 09/15/2024 15:56:00 Ambulatory P harmacy Peripheral Pulse Rate 61bpm 09/15/2024 15:56:00 Ambulatory Pharmacy Respiratory Rate 14br/min 09/15/2024 15:56:00 Ambulatory Pharmacy Temperature Oral 36.8Cel 09/15/2024 15:56:00 Ambulatory Pharmacy BP Site 09/15/2024 15:56:00 [facility] Blood Pressure Manual 09/15/2024 15:56:00 Ambulatory Pharmacy Systolic Blood Pressure 125mm[Hg] 05/19/2023 15:15:00 Ambulatory Pharmacy Diastolic Blood Pressure 76mm[Hg] 05/19/2023 15:15:00 Ambulatory Pharmacy Mean Arterial Pressure, Calc 92mm[Hg] 05/19/2023 15:15:00 Ambulatory P harmacy Peripheral Pulse Rate 67bpm 05/19/2023 15:15:00 Ambulatory Pharmacy Respiratory Rate 14br/min 05/19/2023 15:15:00 Ambulatory Pharmacy Temperature Oral 36.3Cel 05/19/2023 15:15:00 Ambulatory Pharmacy Encounters Combined list of: 1) Encounters from Department of Veterans Affairs facilities going back up to thelast 18 months. 2) Encounters from the Department of Defense facilities going back up to 280 months. Location Location Details Encounter Type Encounter Number Reason For Visit Attending Provider ADM Date DC Date Status Disposition Source [address] [place] [address] Victor Hugo RUIZ ([facility])(Fam jimena Practice Non-GME FHI2) OUTPATIENT [id number] new pt appt/di DOMINIQUE Calvillo 02/16 Released w/o Limitations [address] [place] [address] Victor Hugo RUIZ [facility]F amily Practic e Non-GME FHI2) [address] [place] [address] Victor Hugo RUIZ [facility]Fam jimena Practice Non-GME FHI2) TELE CONSULT [id number] (Dr Chu )---hailey led for a same day appt for rt feels like it swollen JAZMYNE VICKERS 09/[address] [place] [address])(F amily Practic e Non-GME FHI2) [address] [place] [address])([facility] Non-GME FHI1) OUTPATIENT [id number] manda honeycutt under right eye x 2 days, no injury GEORGE NASH 09/03 Released w/o Limitations [address] [place], [place] [address]B [facility])(F amily Practic e Non-GME FHI1) [address] [place], [place] [address]B [facility])([facility] Practice Non-GME FHI1) OUTPATIENT [id number] MIRANDA Ga 10/20 Released w/o Limitations [address] [place] [address])(F amily Practic e Non-GME FHI1) [address] [place] [address])(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 FRANCOISE REGALADO 02/[address] [place] [address])(G ynecolo gy) [address] [place] [address])([facility] Non-GME FHI1) TELE CONSULT [id number] ROBERT Blakely 03/[address] [place] [address])(F amily Practic e Non-GME FHI1) [address] [place] [address])([facility] Practice Non-GME FHI1) OUTPATIENT [id number] Shots updated FAROOQ KAHN 07/15 Released w/o Limitations [facility] [employer] [facility])(F amily Practic e Non-GME FHI1) [address] [place] [address] [employer] [facility])([facility] jimena Practice Non-GME FHI1) OUTPATIENT [id number] Immuniz ations- RENARD Cummings 09/01 Released w/o Limitations [address] [place] [address] Victor Hugo B [facility]F amily Practic e Non-GME FHI1) [address] [place] [address] Group Victor Hugo B [facility])([facility] Non-GME FHI1) OUTPATIENT [id number] RT EAR PAIN SHAKIRA TAYLOR 01/07 Released w/o Limitations [address] [place] [address] Group [employer] ([facility])(F amily Practic e Non-GME FHI1) [address] [place] [address] [employer] [facility] jimena Practice Non-GME FHI2) OUTPATIENT [id number] Ear pain - Given Zyrte - not working SAMIA MAGALLANES 01/14 Released w/o Limitations [address] [place] [address] [employer] [facility]F amily Practic e Non-GME FHI2) [address] [place] [address] [employer] [facility])([facility] jimena Practice Non-GME FHI1) OUTPATIENT [id number] pain in both ears RENARD BETANCOURT 02/01 Released w/o Limitations [address] [place] [address] Victor Hugo B [facility]F amily Practic e Non-GME FHI1) [address] [place] [address] [employer] ([facility])([facility] Non-GME FHI1) OUTPATIENT [id number] Annual Pap & Mammogr am RENARD Torrez 03/25 Released w/o Limitations [address] [place] [address] [employer] [facility]F amily Practic e Non-GME FHI1) [address] [place] [address] [employer] ([facility])([facility] Non-GME FHI1) OUTPATIENT [id number] eye infecti on DAY, EDYTA Kearns 09/08 Released w/o Limitations [address] [place] [address] [employer] [facility]F amily Practic e Non-GME FHI1) [address] [place] [address] Victor Hugo B [facility])([employer] Designer ecology) OUTPATIENT [id number] ; annual pap smear FRANCOISE REGALADO R 02/01 Released w/o Limitations [employer] ([facility])(G ynecolo gy) [employer] ([facility])(C[employer] Designer ecology) OUTPATIENT [id number] 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 SUMIT Savage 03/02 Released w/o Limitations [employer] ([facility])(G ynecolo gy) [employer] ([facility])(Cad Designer ecology) TELE CONSULT [id number] Essure procedu re SUMIT FLOYD 03/05 [employer] ([facility])(G ynecolo gy) [employer] ([facility])(Cad Designer ecology) OUTPATIENT [id number] medicat ion f/u SUMIT FLOYD 03/09 Released w/o Limitations [employer] ([facility])(G ynecolo gy) [employer] ([facility])(Ob/ Cad Designer) TELE CONSULT [id number] Call back- sure-NORBERTO Tinoco 03/15 [employer] ([facility])(O b/Cad Designer) [employer] ([facility])(Cad Designer ecology) OUTPATIENT [id number] ESSURE PROCEDU RE (PER [place] ) SUMIT FLOYD 03/15 Released w/o Limitations [employer] ([facility])(G ynecolo gy) [employer] ([facility])(Cad Designer ecology) OUTPATIENT [id number] F/U From essjigna procedu re on Feb SUMIT FLOYD 04/06 Released w/o Limitations [employer] ([facility])(G ynecolo gy) [employer] ([facility])(Cad Designer ecology) TELE CONSULT [id number] yordy alfaro about next appoint ment SUMIT FLOYD 06/20 [employer] ([facility])(G ynecolo gy) [employer] ([facility])(Cad Designer ecology) OUTPATIENT [id number] [facility] SUMIT FLOYD 07/10 Released w/o Limitations [employer] ([facility])(G ynecolo gy) [employer] ([facility])(Cad Designer ecology) OUTPATIENT [id number] recurri ng rash on breast ANAY ROSALES S 09/06 Released w/o Limitations [facility] [employer] ([facility])(G ynecolo gy) [employer] B ([facility])(Fam jimena Practice Non-GME FHI1) TELE CONSULT [id number] er visit-LITA Morton 10/17 [facility] B ([facility])(F amily Practic e Non-GME FHI1) [facility] [employer] [facility] ([facility])(Fam jimena Practice Non-GME FHI1) TELE CONSULT [id number] pcm-JOSE ENRIQUE Britt 11/[address] [place] [address] Group [facility] ([facility])(F amily Practic e Non-GME FHI1) [address] [place] [address] Victor Hugo B ([facility])(War rior Op Med Cln Tm A Ad) OUTPATIENT [id number] Lump to abd and right thigh SHAKIRA TAYLOR 02/06 Released w/o Limitations [facility] [employer] [facility] ([facility])(W arrior Op Med Cln Tm A Ad) Medical Group [facility] B [facility]Moo tt [facility]) OUTPATIENT [id number] Weightl oss WILNER KUHN 02/13 Released w/o Limitations [facility] [employer] ([facility])([facility]) [employer] [facility] ([facility])([facility]) OUTPATIENT [id number] weight loss/ea ting healthi er WILNER KUHN 02/22 Released w/o Limitations [facility] [employer] ([facility])([facility]) [facility] [employer] ([facility])(Moo tt [facility]) OUTPATIENT [id number] assessm ent of goals WILNER KUHN 03/21 Released w/o Limitations [facility] [employer] ([facility])([facility]) [employer] [facility]) OUTPATIENT [id number] F/U WILNER KUHN 04/17 Released w/o Limitations [facility] [employer] ([facility])([facility]) [employer] [facility] KATHRYNB ([facility])(War rior Op Med Cln Tm A Ad) OUTPATIENT [id number] pain in elbows CRISSFAROOQ Kody 12/19 Released w/o Limitations [employer] [facility]ATHRYNB ([facility])(W arrior Op Med Cln Tm A Ad) [employer] [facility] KATHRYNElvin ([facility])(War rior Op Med Cln Tm A Ad) OUTPATIENT [id number] arm neck pain [id number] CRISS FAROOQ Kody 01/01 Released w/o Limitations [employer] [facility]ATHRYNB ([facility])(W arrior Op Med Cln Tm A Ad) [employer] [facility]ATHRYNB ([facility])([facility]) OUTPATIENT [id number] arm pain WILNER KUHN 01/01 Released w/o Limitations [facility] [employer] [facility]ATHRYNB ([facility])([facility]) [facility] [employer] [facility] ([facility])(War rior Op Med Cln Tm A Ad) TELE CONSULT [id number] MRI issue LITA FITZPATRICK 01/01 Medical [facility] [employer] [facility]Z ([facility])(W arrior Op Med Cln Tm A Ad) [facility]HR[facility]NB ([facility])(War rior Op Med Cln Tm A Ad) TELE CONSULT [id number] MRI results LITA FITZPATRICK 01/06 [facility] ([facility])(W arrior Op Med Cln Tm A Ad) [employer] [facility] KATHRYNElvin ([facility])(War rior Op Med Cln Tm A Ad) OUTPATIENT [id number] F/U Arm/nec k pain FAROOQ KAHN Kody 01/28 Released w/o Limitations [employer] [facility] KATHRYNB ([facility])(W arrior Op Med Cln Tm A Ad) [facility] ([facility])(War rior Op Med Cln Tm A Ad) TELE CONSULT [id number] Kady/ change in referra l needed LITA FITZPATRICK 02/07 Medical Group [facility] ([facility])(W arrior Op Med Cln Tm A Ad) [employer] [facility] [place] ([facility])(War rior Op Med Cln Tm A Ad) TELE CONSULT [id number] Rx refill - LITA Trotter 02/11 [facility] [place] [facility]W arrior Op Med Cln Tm A Ad) [facility] [place] ([facility])(Cad Designer ecology) OUTPATIENT [id number] annual. [id number] FRANCOISE REGALADO 04/02 Released w/o Limitations [employer] [place] ([facility])(G ynecolo gy) [facility] [employer] [place] [facility])(Ob/ Cad Designer) TELE CONSULT [id number] results BARRY JOSE Wolfe 04/15 [employer] [facility] [place] ([facility])(O b/Cad Designer) [facility] [employer] [place] ([facility])(War rior Op Med Cln Tm A Ad) TELE CONSULT [id number] Appt asst ROCKY EDYTA R 06/09 [facility] [place] ([facility])(W arrior Op Med Cln Tm A Ad) [facility] [place] ([facility])(War rior Op Med Cln Tm A Ad) OUTPATIENT [id number] cyst hip area KADYSHAKIRA NGUYỄN Aiden 06/16 Released w/o Limitations [facility] [employer] [facility] ([facility])(W arrior Op Med Cln Tm A Ad) [facility] ([facility])(Fam jimena Med Tm B Non-AD BCC) TELE CONSULT [id number] need an referra l for endocri nology appt January 29 SHAUNA ASHER 01/22 Referred for Appointment [facility] [employer] [facility] [facility]F amily Med Tm B Non-AD BCC) [facility] [employer] [place] ([facility])(Cad Designer ecology) OUTPATIENT [id number] WWE, NO KIDS, [id number] FRANCOISE REGALADO 06/16 Released w/o Limitations [facility] [employer] ([facility])(G ynecolo gy) [facility] [employer] ([facility])(Cad Designer ecology) TELE CONSULT [id number] results FRANCOISE REGALADO 06/25 [facility]ATHR[facility]NB ([facility])(G ynecokarla gy) [facility] [employer] ([facility])(Cad Designer ecology) OUTPATIENT [id number] EMB;irr egular length of menstru al periods FRANCOISE REGALADO 07/16 Released w/o Limitations [address] [place] [address] Victor Hugo B [facility])(G ynecolo gy) [address] [place] [address] [employer] ([facility])(Cad Designer ecology) TELE CONSULT [id number] results FRANCOISE REGALADO 07/[address] [place] [address] Victor Hugo B [facility])(G ynecolo gy) [address] [place] [address] Victor Hugo B [facility])(Cad Designer ecology) TELE CONSULT [id number] leg cramps on control TRINI SISI M 08/[address] [place] [address] Victor Hugo B [facility])(G ynecolo gy) [address] [place] [address] Victor Hugo B [facility])(Cad Designer ecology) OUTPATIENT [id number] leg cramps/ RADHA EWING 09/15 Released w/o Limitations [address] [place] [address] Victor Hugo B [facility])(G ynecolo gy) [address] [place] [address] Victor Hugo [facility])(Cad Designer ecology) TELE CONSULT [id number] Discuss u/s results MATT SADLER 10/[address] [place] [address])(G ynecolo gy) [address] [place] [address] Victor Hugo B [facility])(Cad Designer ecology) TELE CONSULT [id number] med refill RADHA EWING 12/[address] [place] [address] Victor Hugo B [facility])(G ynecolo gy) [address] [place] [address])(Cad Designer ecology) TELE CONSULT [id number] Notes Entered by: MATT KEENAN 23 Dec 2011 0659 ------- ------- ------- ------- -- Discuss u/s results RADHA EWING 12/[address] [place] [address])(G ynecolo gy) [address] [place], [place] [address]B [facility])([facility] Team 3) TELE CONSULT [id number] Notes Entered by: DINA RAO 07 Jan 2012 1552 ------- ------- ------- ------- -- Refersofía bustos cad taylert RUTHYDAREN Juan 01/[address] [place] [address] Victor Hugo [facility])(S [facility] Team 3) [address] [place] [address])(Sco tt [facility] Team 3) OUTPATIENT [id number] Notes Entered by: WALKER AMEZCUA 28 Mar 2012 0841 ------- ------- ------- ------- -- Walk in ALLA Rios 03/28 Released w/o Limitations [address] [place] [address])(S [facility] Team 3) [address] [place] [address])(Ob/ Cad Designer) TELE CONSULT [id number] Notes Entered by: MATT KEENAN 16 May 2012 1240 ------- ------- ------- ------- -- Discuss u/s results MATT SADLER 05/[address] [place] [address])(O b/Cad Designer) [address] [place] [address])(Cad Designer ecology) TELE CONSULT [id number] Notes Entered by: LINDA RUVALCABA V 18 May 2012 1014 ------- ------- ------- ------- -- menorrh RASHMI Singh 05/[address] [place] [address])(Park rowley) [address] [place] [address])(Cad Designer ecology) OUTPATIENT [id number] evaluat e bleedin g/discu ss medroxy progest erone [id number] [phone] KENNETH WALLIS 05/26 Released w/o Limitations [address] [place] [address] Victor Hugo [facility])(G beau gy) [address] [place] [address])(Ob/ Cad Designer) TELE CONSULT [id number] Notes Entered by: Vika WALLIS 26 May 2012 1257 ------- ------- ------- ------- -- Schedul e pt for EMB. JUAN CARLOS RICE Kody 05/26 [facility] [employer] [facility] B ([facility])(O b/Cad Designer) [facility] [employer] ([facility])(Cad Designer ecology) OUTPATIENT [id number] EMB [phone] KENNETH WALLIS 07/20 Released w/o Limitations [address] [place] [address] Group Victor Hugo B ([facility])(G ynecolo gy) [facility] [employer] B ([facility])(Ob/ Cad Designer) TELE CONSULT [id number] Notes Entered by: Vika WALLIS 28 Jul 2012 1007 ------- ------- ------- ------- -- Results of EMB and f/u appt KENNETH WALLIS 07/[address] [place] [address] Group Victor Hugo [facility] ([facility])(O b/Cad Designer) [facility])(Ob/ Cad Designer) TELE CONSULT [id number] Notes Entered by: GERTRUDIS SANCHEZ CIA 28 Jul 2012 1604 ------- ------- ------- ------- -- Appt w/ Daylin - [facility] AMARILIS QUINTEROS 07/[address] [place] [address] Group Victor Hugo [facility])(O b/Cad Designer) [address] [place] [address] Victor Hugo [facility])(Cad Designer ecology) OUTPATIENT [id number] well woman [phone] KENNETH WALLIS 07/29 Released w/o Limitations [facility] Victor Hugo [facility] ([facility])(G ynecokarla gy) [facility] [employer] [facility])(Sco tt [facility] Team 3) OUTPATIENT [id number] hair falling out in shower x 2 wks [phone] ALLA COOK 08/04 Released w/o Limitations [facility] [employer] ([facility])(S cott [facility] Team 3) [facility] [employer] ([facility])(Sco tt [facility] Team 3) TELE CONSULT [id number] Notes Entered by: AYLIN BLACK 09 Aug 2012 1643 ------- ------- ------- ------- -- Followu p Vitamin D level. ALLA COOK 08/[address] [place] [address])([facility] Team 3) [address] [place] [address])([facility] Team 3) TELE CONSULT [id number] Notes Entered by: ANNIE BASURTO 15 Aug 2012 1528 ------- ------- ------- ------- -- Tcon for referra l Dr Car marco a ph [phone] cad SHAUNA Renteria 08/[address] [place] [address])([facility] Team 3) [address] [place] [address])(Cad Designer ecology) OUTPATIENT [id number] options for dysfunc tional bleedin g [phone] RASHMI RIVERA 08/18 Released w/o Limitations [address] [place] [address])(Park lindquistnecokarla gy) [address] [place] [address])(Paco rior Op Med Cln Tm A Ad) TELE CONSULT [id number] Notes Entered by: LYN HALL 06 Sep 2012 1124 ------- ------- ------- ------- -- Network Results - ENDOCRI NOLOGY 03/22/12 BERYL FORD 09/[address] [place] [address])(Zuleyma arrior Op Med Cln Tm A Ad) [address] [place] [address])([facility] Team 3) TELE CONSULT [id number] Notes Entered by: PARAM SEN 06 Sep 2012 1609 ------- ------- ------- ------- -- Retro carolyn/Akin bhardwaj /667.27 15/mnGISEL Clemente 09/[address] [place] [address])([facility] Team 3) [address] [place] [address])(Cad Designer ecology) OUTPATIENT [id number] [facility] [phone] or [phone] RSAHMI RIVERA 09/13 Released w/o Limitations [facility] Victor Hugo [facility])(G ytraviscokarla gy) [address] [place] [address] Victor Hugo [facility])(War rior Op Med Cln Tm A Ad) TELE CONSULT [id number] Notes Entered by: LYN HALL 23 Sep 2012 1158 ------- ------- ------- ------- -- Network Results - ENDOCRI NOLOGY 08/23/12 ALLA COOK 09/[address] [place] [address])(W arrior Op Med Cln Tm A Ad) [address] [place] [address] Victor Hugo [facility])(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 ecology) TELE CONSULT [id number] Notes Entered by: BEKAH MELTON 26 Sep 2012 1043 ------- ------- ------- ------- -- F/U appevi - Josep marco a - [phone] JOSE REDDY 09/[address] [place] [address] Victor Hugo [facility])(G beau gy) [address] [place] [address] Victor Hugo [facility])(Cad Designer ecology) TELE CONSULT [id number] Notes Entered by: AMRIT FISHER 26 Sep 2012 1528 ------- ------- ------- ------- -- Network Results -GYNECO LOGY 2 RASHMI RIVERA 09/[address] [place] [address] Victor Hugo [facility])(G ytraviscokarla gy) [address] [place] [address] Victor Hugo [facility])(Cad Designer ecology) OUTPATIENT [id number] POST OP d&c Aug - [id number] RASHMI RIVERA 10/31 Released w/o Limitations [address] [place] [address] Victor Hugo [facility])(G ynecokarla gy) [address] [place] [address] Victo Rhugo [facility] ([facility])(Cad Designer ecology) TELE CONSULT [id number] Notes Entered by: AMRIT FISHER 08 Nov 2012 0821 ------- ------- ------- ------- -- Network Results -GYNECO LOGY 2 RASHMI RIVERA 11/[address] [place] [address] Victor Hugo [facility])(G yhillkarla gy) [address] [place] [address])(Cad Designer ecology) OUTPATIENT [id number] pap exam [phone] FRANCOISE REGALADO 04/25 Released w/o Limitations [address] [place] [address] Victor Huog [facility])(G ytraviscokarla gy) [address] [place] [address])(Min or Procedure Clinic) OUTPATIENT [id number] 2nd floor SAFB/Pr eop clinic FRANCIA CABALLERO 05/16 Released w/o Limitations [address] [place] [address])(M inor Procedu re Clinic) [address] [place] [address])(Cad Designer ecology) TELE CONSULT [id number] Notes Entered by: SIMI REGALADO 18 May 2014 1120 ------- ------- ------- ------- -- results IAN VENCES 05/[address] [place] [address])(G beau gy) [address] [place] [address])(Cad Designer ecology) OUTPATIENT [id number] emb 667.271 5 FRANCOISE REGALADO 05/22 Released w/o Limitations [address] [place] [address])(G ynicanor gy) [address] [place] [address])(Uti lization Managemen t) TELE CONSULT [id number] Notes Entered by: uJan PHAM 28 May 2014 1022 ------- ------- ------- ------- -- -[facility] BRIGID Downing 05/[address] [place] [address])(U tilizat ion Managem ent) [address] [place] [address])(Cad Designer ecology) TELE CONSULT [id number] Notes Entered by: SIMI REGALADO 29 May 2014 0810 ------- ------- ------- ------- -- results INA VENCES 05/[address] [place] [address] Victor Hugo Elvin ([facility])(G ynecolo gy) [address] [place] [address] Victor Hugo Elvin [facility])(Min or Procedure Clinic) OUTPATIENT [id number] 2nd floor SAFB/Sc NICK Ying 05/29 Released w/o Limitations [address] [place] [address] Victor Hugo RUIZ ([facility])(M inor Procedu re Clinic) [address] [place] [address] Victor Hugo [place] [facility])(Sco tt [facility] Tm Blue) TELE CONSULT [id number] Notes Entered by: SAROJ CORRALES 30 May 2014 1143 ------- ------- ------- ------- -- Call Back C-scope JUN 11- ANGELI Herrera 05/30 Released to Self Care [address] [place] [address] Vicotr Hugo RUIZ [facility])(S cott [facility] Tm Blue) [address] [place] [address] Victor Hugo KATHRYNElvin [facility])(Fam jimena Med Tm B Non-AD BCC) OUTPATIENT [id number] head feels heavy /667.27 15 RACH HOLLAND 08/10 Released w/o Limitations [address] [place] [address] Victor Hugo KATHRYNElvin [facility])(F amily Med Tm B Non-AD BCC) [address] [place] [address] Victor Hugo RUIZ ([facility])(Fam jimena Med Tm B Non-AD BCC) OUTPATIENT [id number] [facility] s [phone] RACH HOLLAND 08/15 Released w/o Limitations [address] [place] [address] Victor Hugo [place] [facility])(F amily Med Tm B Non-AD BCC) [address] [place] [address] Victor Hugo Elvin [facility])(War rior Op Med Cln Tm A Ad) TELE CONSULT [id number] Notes Entered by: DOMINIQUE BROWN 17 Aug 2014 1013 ------- ------- ------- ------- -- Lab results - Per RACH Mccormick 08/[address] [place] [address] Victor Hugo RUIZ ([facility])(W arrior Op Med Cln Tm A Ad) [address] [place] [address] Victor Hugo [facility] ([facility])([facility] jimena Med Tm B Non-AD BCC) OUTPATIENT [id number] nasal drainag e, head feels heavy; meds not helping [phone] CRUZITO NGUYEN 08/21 Released w/o Limitations [address] [place] [address] Victor Hugo [facility] ([facility])(F amily Med Tm B Non-AD BCC) [address] [place] [address] Victor Hugo [facility])(War rior Op Med Cln Tm A Ad) OUTPATIENT [id number] head feel heavy,s inus pain after finishi ng antibio tics [id number] CRUZITO NGUYEN 08/31 Released w/o Limitations [address] [place] [address] Victor Hugo [facility])(W arrior Op Med Cln Tm A Ad) [address] [place] [address] Victor Hugo [facility])([facility] jimena Med Tm B Non-AD BCC) TELE CONSULT [id number] Notes Entered by: AMRIT FISHER 05 Sep 2014 1019 ------- ------- ------- ------- -- Network Results -OTORHI CODY JEFFERSON 09/04/14 CRUZITO NGUYEN 09/[address] [place] [address] Victor Hugo [facility])( amily Med Tm B Non-AD BCC) [address] [place] [address] Victor Hugo [facility])(War rior Op Med Cln Tm A Ad) TELE CONSULT [id number] Notes Entered by: VIKAS NGUYEN 06 Sep 2014 1500 ------- ------- ------- ------- -- Radiolo gy studies CRUZITO NGUYEN 09/[address] [place] [address] Victor Hugo [facility])(W arrior Op Med Cln Tm A Ad) [address] [place] [address] Victor Hugo [facility])(War rior Op Med Cln Tm A Ad) TELE CONSULT [id number] Notes Entered by: Vika DE DIOS 13 Sep 2014 1440 ------- ------- ------- ------- -- Questio ns about aspirin Jodi DAREN BLISS 09/[address] [place] [address])(W arrior Op Med Cln Tm A Ad) [address] [place] [address])(War rior Op Med Cln Tm A Ad) TELE CONSULT [id number] Notes Entered by: WILFREDO SANDERS 03 Oct 2014 1600 ------- ------- ------- ------- -- Jodi/ P.TKorina Referra l Request LAY LUNA 10/[address] [place] [address])(W arrior Op Med Cln Tm A Ad) [address] [place] [address])(War rior Op Med Cln Tm A Ad) TELE CONSULT [id number] Notes Entered by: STEPH DODD 11 Jan 2015 1017 ------- ------- ------- ------- -- Endocri nology referra l request ed by Pt GEORGE STEINER 01/[address] [place] [address])(W arrior Op Med Cln Tm A Ad) [address] [place] [address])(War rior Op Med Cln Tm A Ad) TELE CONSULT [id number] Notes Entered by: ELIUD BANEGAS 17 Jan 2015 1128 ------- ------- ------- ------- -- Request jose thompson referra l Appt on Wednesday / Liverpa n/ OR [phone] NEAL NUNEZ 01/[address] [place] [address])(W arrior Op Med Cln Tm A Ad) [address] [place] [address])(War rior Op Med Cln Tm A Ad) TELE CONSULT [id number] Notes Entered by: ANNIE BASURTO 23 May 2015 1311 ------- ------- ------- ------- -- Network results Physica l Therapy 014 NEAL NUNEZ 05/[address] [place] [address])(W arrior Op Med Cln Tm A Ad) [address] [place] [address] Victor Hugo [facility])(War rior Op Med Cln Tm A Ad) TELE CONSULT [id number] Notes Entered by: Gladys DE DIOS 27 May 2015 1506 ------- ------- ------- ------- -- Sx UCC FU symptom s persist s/Liver mon/[phone] or cell [phone] LUDIN FORTE 05/27 Referred for Appointment [address] [place] [address])(W arrior Op Med Cln Tm A Ad) [address] [place] [address])(War rior Op Med Cln Tm A Ad) OUTPATIENT [id number] ER follow up 27 May 2015 NEAL NUNEZ 06/04 Released w/o Limitations [address] [place] [address])(W arrior Op Med Cln Tm A Ad) [address] [place] [address])(War rior Op Med Cln Tm A Ad) TELE CONSULT [id number] Notes Entered by: IGOR HERNÁNDEZ 25 Jun 2015 0721 ------- ------- ------- ------- -- New referra l (rewrit e) - Livermo n - /c [phone] HAILEE PARSONS 06/25 Referred for Appointment [address] [place] [address])(W arrior Op Med Cln Tm A Ad) [address] [place] [address])(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 - [id number] FRANCOISE REGALADO 05/01 Released w/o Limitations [address] [place] [address])(G ynecolo gy) [address] [place] [address])(Fam jimena Med Tm B Non-AD BCC) TELE CONSULT [id number] Notes Entered by: Betty ARNETT 15 May 2016 1130 ------- ------- ------- ------- -- ER F/U Appt / Colanes e/Pts # or # - LUDIN Oliver 05/15 Referred for Appointment [address] [place] [address])(F amily Med Tm B Non-AD BCC) [address] [place] [address])(Fam jimena Med Tm B Non-AD BCC) OUTPATIENT [id number] Annual Check-U p, Dermato lgoy Ref Skin check - [phone] GAMAL SALEH 05/19 Released w/o Limitations [address] [place] [address])(F amily Med Tm B Non-AD BCC) [address] [place] [address])(Fam jimena Med Tm B Non-AD BCC) TELE CONSULT [id number] Notes Entered by: ANGELINE RAIN 21 May 2016 1253 ------- ------- ------- ------- -- Request ing Exercis e informa tion/ Colanes e / [phone] LUDIN Ireland 05/21 Referred for Appointment [address] [place] [address])(F amily Med Tm B Non-AD BCC) [address] [place] [address])(Med ication Refill Clinic) TELE CONSULT [id number] [employer] /Colane /618- [phone] 5/STEVAN Richards 08/[address] [place] [address])(Iban villegas on Refill Clinic) [address] [place] [address])(Fam jimena Med Tm B Non-AD BCC) TELE CONSULT [id number] Notes Entered by: STEVAN RUSSELL 07 Aug 2016 1324 ------- ------- ------- ------- -- Medicat ion request /Colane /[phone]- [phone] GAMAL SALEH 08/[address] [place] [address] Group Victor Hugo [facility] ([facility])(F amily Med Tm B Non-AD BCC) [address] [place] [address] Victor Hugo [place] [facility])([facility] jimena Med Tm B Non-AD BCC) OUTPATIENT [id number] left foot and ankle pain and swellin g / [phone] 8 NICK KUMARI 12/09 Released w/o Limitations [address] [place] [address] Victor Hugo [place] ([facility])( amily Med Tm B Non-AD BCC) [address] [place] [address] [employer] [facility])([facility] jimena Med Tm B Non-AD BCC) TELE CONSULT [id number] Notes Entered by: CLARISA HAYES 17 Dec 2016 0928 ------- ------- ------- ------- -- Order discrep panda/la b results /Colane se/618. 667.271 5/SNEHA Zee 12/[address] [place] [address] Victor Hugo [place] [facility])( amily Med Tm B Non-AD BCC) [address] [place] [address] Victor Hugo [place] [facility])([facility] jimena Med Tm B Non-AD BCC) TELE CONSULT [id number] Notes Entered by: NICK KUMARI 28 Dec 2016 0831 ------- ------- ------- ------- -- MRI results NICK KUMARI 12/[address] [place] [address] Victor Hugo [place] ([facility])( amily Med Tm B Non-AD BCC) [address] [place] [address] Victor Hugo [place] ([facility])([facility] jimena Med Tm B Non-AD BCC) OUTPATIENT [id number] F/U Stress Fractur e NICK KUMARI 01/22 Released w/o Limitations [address] [place] [address] [employer] ([facility])(F amily Med Tm B Non-AD BCC) [address] [place] [address] [employer] [facility])([facility] jimena Med Tm B Non-AD BCC) OUTPATIENT [id number] f/u left foot IVON MAHAN 02/05 Released w/o Limitations [address] [place] [address] [employer] ([facility])(F amily Med Tm B Non-AD BCC) [address] [place] [address])(Fam jimena Med Tm B Non-AD BCC) TELE CONSULT [id number] Notes Entered by: ANNIE BASURTO 23 Feb 2017 0905 ------- ------- ------- ------- -- Network results Physica l Therapy 017 SNEHA SWANN 02/[address] [place] [address])(F amily Med Tm B Non-AD BCC) [address] [place] [address])(War rior Op Med Cln Tm A Ad) TELE CONSULT [id number] Notes Entered by: Evi RICE 30 Jun 2017 0845 ------- ------- ------- ------- -- Network results Endocri nology 05/02/17 & 03/19/17 YAJAIRA MCKAY 06/[address] [place] [address])(W arrior Op Med Cln Tm A Ad) [address] [place] [address])(Cad Designer ecology) OUTPATIENT [id number] E [id number] FRANCOISE REGALADO 12/16 Released w/o Limitations [address] [place] [address])(Park ytraviscokarla gy) [address] [place] [address])(Cad Designer ecology) TELE CONSULT [id number] Notes Entered by: SIMI REGALADO 20 Dec 2017 1733 ------- ------- ------- ------- -- results MARGARET TURCIOS 12/20 Referred for Appointment [address] [place] [address])(Park yanez gy) [address] [place] [address])(Fam jimena Med Tm B Non-AD BCC) TELE CONSULT [id number] Notes Entered by: MABLE ENGLE 21 Dec 2017 1347 ------- ------- ------- ------- -- STAT Refer l Renewal Request (appt Nov)/Co lanesgilda/ [phone] AMBER MCCALL 12/[address] [place] [address] Group Victor Hugo [facility] [facility])(F amily Med Tm B Non-AD BCC) [address] [place] [address] Group Victor Hugo [place] [facility])(Fam jimena Med Tm B Non-AD BCC) OUTPATIENT [id number] dizzy upon standin g [id number] AURORA TORIBIO 03/14 Released w/o Limitations [address] [place] [address] Group Victor Hugo [place] [facility])(F amily Med Tm B Non-AD BCC) [address] [place] [address] Group Victor Hugo [place] [facility])(Fam jimena Med Tm B Non-AD BCC) TELE CONSULT [id number] Notes Entered by: IGOR HERNÁNDEZ 21 Mar 2018 1426 ------- ------- ------- ------- -- Nirmal Referra kody - Levery - [phone] 5/c618- [phone] 8vbc BARON DONG 03/21 Referred for Appointment [address] [place] [address] Group Victor Hugo [place] [facility])(F amily Med Tm B Non-AD BCC) [address] [place] [address] Group Victor Hugo [place] [facility])(Fam jimena Med Tm B Non-AD BCC) OUTPATIENT [id number] f/u nausea and dizzy [id number] AURORA TORIBIO 04/01 Immediate Referral [address] [place] [address] Group Victor Hugo [place] [facility])(F amily Med Tm B Non-AD BCC) [address] [place] [address] Victor Hugo [place] [facility])(Fam jimena Med Tm B Non-AD BCC) TELE CONSULT [id number] Notes Entered by: MABLE ENGLE 07 Apr 2018 1144 ------- ------- ------- ------- -- ER f/u/Lev jj/618 .667.27 15 BARON DONG 04/07 Referred for Appointment [address] [place] [address] Group [employer] [facility])(F amily Med Tm B Non-AD BCC) [address] [place] [address] [employer] [facility])(Fam jimena Med Tm B Non-AD BCC) TELE CONSULT [id number] Notes Entered by: Evi RICE 19 Apr 2018 1429 ------- ------- ------- ------- -- Provide r request nerissa grossman Results -PT-4/3 AURORA TORIBIO 04/[address] [place] [address])( amily Med Tm B Non-AD BCC) [address] [place] [address])(Cad Designer ecology) TELE CONSULT [id number] Notes Entered by: Aiden DE LA TORRE 21 Jul 2018 1627 ------- ------- ------- ------- -- Referra l request for breast MRI FRANCOISE REGALADO 07/[address] [place] [address])(G ynecolo gy) [address] [place] [address])(Cad Designer ecology) TELE CONSULT [id number] Notes Entered by: Evi KENNEDY 01 Sep 2018 1154 ------- ------- ------- ------- -- Physici an request ed T-CON for RADIOLO GY 018 IAN VENCES 09/01 Referred for Appointment [address] [place] [address])(G ynecolo gy) [address] [place] [address])(Cad Designer ecology) OUTPATIENT [id number] E FRANCOISE REGALADO 12/05 Released w/o Limitations [address] [place] [address])(G ynecolo gy) [address] [place] [address])(Fam jimena Med Tm B Non-AD BCC) TELE CONSULT [id number] Notes Entered by: Park DAWKINS 17 Jan 2019 1426 ------- ------- ------- ------- -- Low back pain MAURICIO ROTH 01/17 Referred for Appointment [address] [place] [address])(F amily Med Tm B Non-AD BCC) [address] [place], [place] [address])(Fam jimena Med Tm B Non-AD BCC) OUTPATIENT [id number] Back Pain AURORA TORIBIO JAZMINE 01/24 Released w/o Limitations [address] [place] [address])(F amily Med Tm B Non-AD BCC) [address] [place] [address])(War rior Op Med Cln Tm A Ad) TELE CONSULT [id number] Notes Entered by: PAOLA MANRIQUE 03 Feb 2019 1021 ------- ------- ------- ------- -- Physica l Therapy Referra l Amendny nt Helder/ [place]/ - [facility] SARAH MCDONALD N 02/03 Other Not Elsewhere Classified [address] [place] [address] Group [facility])(W arrior Op Med Cln Tm A Ad) [address] [place] [address])(War rior Op Med Cln Tm A Ad) TELE CONSULT [id number] Notes Entered by: CLARISA HAYES 01 Mar 2019 1004 ------- ------- ------- ------- -- Referra l Jennyq/Navneet miles/618 .[phone] 48/clm SARAH MCDONALD N 03/01 Other Not Elsewhere Classified [address] [place] [address])(W arrior Op Med Cln Tm A Ad) [address] [place] [address])(War rior Op Med Cln Tm A Ad) OUTPATIENT [id number] 1 Physica l w/paper work, AURORA TORIBIO JAZMINE 04/13 Released w/o Limitations [address] [place] [address] Group [facility])(W arrior Op Med Cln Tm A Ad) [address] [place] [address])(War rior Op Med Cln Tm A Ad) TELE CONSULT [id number] Notes Entered by: AURA JOHNSON 11 Jul 2019 1426 ------- ------- ------- ------- -- Network results Physica l Therapy [phone] KAVITHAP MARCHELICIA Juan 07/[address] [place] [address] Group [facility])(W arrior Op Med Cln Tm A Ad) [address] [place] [address])(Cad Designer ecology) TELE CONSULT [id number] Notes Entered by: LITA CLEANING 19 Jul 2019 1059 ------- ------- ------- ------- -- Bilater al breast MRI order needed IAN VENCES 07/[address] [place] [address])(G ynecolo gy) [address] [place] [address])(Ob/ Cad Designer) TELE CONSULT [id number] Notes Entered by: KIRSTEN HUTCHISON 15 Sep 2019 1010 ------- ------- ------- ------- -- Network Results OBGYYung 09/01/19 JOSE GREENE 09/15 Released to Self [facility])(O b/Cad Designer) [address] [place] [address])(Cad Designer ecology) TELE CONSULT [id number] Notes Entered by: BEKAH MELTON 12 Feb 2020 1452 ------- ------- ------- ------- -- Bridge Rx - - tsg IAN VENCES 02/11 Medication Refill Forwarded [address] [place] [address])(G ynecolo gy) [address] [place] [address])(Cad Designer ecology) OUTPATIENT [id number] WWE YOSVANY DAVIS 04/03 Released w/o Limitations [address] [place] [address])(G ynecolo gy) [address] [place] [address])(Cad Designer ecology) TELE CONSULT [id number] Notes Entered by: Iban DAVIS 04 Apr 2020 1359 ------- ------- ------- ------- -- James YOSVANY DAVIS Ruthie 04/[address] [place] [address])(Park yanez gy) [address] [place] [address])(Ob/ Cad Designer) TELE CONSULT [id number] vitamin D concern IAN Mitchell 05/30 Medication Refill Forwarded [address] [place] [address] [facility])(O b/Cad Designer) [address] [place] [address] [facility])([facility] Internal [facility] ) TELE CONSULT [id number] Notes Entered by: MABLE ENGLE 10 Oct 2020 1118 ------- ------- ------- ------- -- COVID Test Request /Shayne/Homero [phone] ANNA HERNANDEZ 10/10 Other Not Elsewhere Classified [address] [place] [address] [facility])(S cott Interna l Medicin e Tm) [address] [place] [address] [facility])(Cad Designer ecology) TELE CONSULT [id number] Notes Entered by: JHONY HERNANDES 11 Apr 2021 1246 ------- ------- ------- ------- -- bridge rx ELLYN BYRD 04/11 Other Not Elsewhere Classified [address] [place] [address])(Park yanez gy) [address] [place] [address])([facility] ) OUTPATIENT [id number] In-Pers on -R Top Forearm Pain increas es with lifting SHANKAR BELLA 04/15 Released w/o Limitations [address] [place] [address])(S cott Interna l Medicin e Tm) [address] [place] [address])([facility] ) TELE CONSULT [id number] 1 Notes Entered by: SHANKAR BELLA 17 Apr 2021 0840 ------- ------- ------- ------- -- hyperli pidemia SHANKAR BELLA KYLE 04/[address] [place] [address])(S cott Interna l Medicin e Tm) [address] [place] [address])(Cad Designer ecology) OUTPATIENT [id number] [facility] FRANCOISE REGALADO 04/23 Released w/o Limitations [address] [place] [address])(Park yanez gy) [address] [place] [address])([facility] ) TELE CONSULT [id number] Notes Entered by: PAOLA MANRIQUE 02 May 2021 1419 ------- ------- ------- ------- -- Physica l Therapy Referra l Inquiry -SX-R Arm Pain persist / Bella/618 -[phone] 15 - JOLENE Bowman 05/02 Other Not Elsewhere Classified [address] [place] [address])(S cott Interna l Medicin e Tm) [address] [place] [address])([facility] ) TELE CONSULT [id number] Notes Entered by: Amanda DEL ROSARIO 13 May 2021 1532 ------- ------- ------- ------- -- Network results Physica l Therapy 021 KJD SHANKAR BELLAJACKIE 05/[address] [place] [address])(S cott Interna l Medicin e Tm) [address] [place] [address])([facility] ) TELE CONSULT [id number] 1 Notes Entered by: Park DAWKINS 25 Jun 2021 0841 ------- ------- ------- ------- -- order for immuniz ation / ANNA Grajeda 06/25 Other Not Elsewhere Classified [address] [place] [address])(S cott Interna l Medicin e Tm) [address] [place] [address])([facility] ) TELE CONSULT [id number] 1 Notes Entered by: SHENA BALTAZAR 30 Jun 2021 0900 ------- ------- ------- ------- -- Network results Physica l Therapy 021 BF SHANKAR BELLA 06/[address] [place] [address])(S cott Interna l Medicin e Tm) [address] [place] [address] [facility])(Cad Designer ecology) TELE CONSULT [id number] Notes Entered by: KARLA HOLLIDAY 11 Jul 2021 0947 ------- ------- ------- ------- -- PresJOSE Page 07/11 Released to Self [facility] [address] [place] [address] [facility])(G ynecolo gy) [address] [place] [address] [facility])([facility] ) OUTPATIENT [id number] 4 R- elbow pain, [phone] phone call appt SHANKAR BELLA 07/14 Released w/o Limitations [address] [place] [address] [facility])(S cott Interna l Medicin e Tm) [address] [place] [address] [facility])([facility] ) TELE CONSULT [id number] 0 Notes Entered by: SHANKAR BELLA FRENCH 17 Jul 2021 1610 ------- ------- ------- ------- -- elbow x ray SHANKAR BELLAJACKIE 07/[address] [place] [address] [facility])(S cott Interna l Medicin e Tm) [address] [place] [address] [facility])([facility] Tm) TELE CONSULT [id number] Notes Entered by: Amanda DEL ROSARIO 21 Jul 2021 1515 ------- ------- ------- ------- -- Network results Physica l Therapy 021 KJD SHANKAR BELLAJACKIE 07/[address] [place] [address] [facility])(S cott Interna l Medicin e Tm) [address] [place] [address])([facility] ) TELE CONSULT [id number] Notes Entered by: LOUIE VILCHIS 26 Aug 2021 1022 ------- ------- ------- ------- -- Referra l Renewal / Bella/ [phone] NATI MORRIS 08/26 Other Not Elsewhere Classified [address] [place] [address])(S cott Interna l Medicin e Tm) [address] [place] [address])([facility] ) TELE CONSULT [id number] 9 Notes Entered by: JEANA GARIBAY RET 01 Sep 2021 1555 ------- ------- ------- ------- -- Referra l Orthope dic Special is/Bella / NATI MORRIS 09/01 Referred for Appointment [address] [place] [address] [facility])(S cott Interna l Medicin e Tm) [address] [place] [address])([place] - [place] OUTPATIENT [id number] Pain in unspeci fied elbow GE CAMPOS A 09/18 Released w/o Limitations [address] [place] [address])(V A - Orthope dics) [address] [place] [address] [facility])([place] - [facility] [facility] OUTPATIENT [id number] Follow up stefanie elbows ANDRESGE A 10/02 Released w/o Limitations [address] [place] [address])(V A - Orthope dics) [address] [place] [address])(Cad Designer ecology) TELE CONSULT [id number] Notes Entered by: OLIVER WAITE 07 Nov 2021 1412 ------- ------- ------- ------- -- Request ing MRI Order JOSE REDDY 11/07 Released to Self Care [address] [place] [address] [facility])(G ynecolo gy) [address] [place] [address])([place] - Orthoped[place]) OUTPATIENT [id number] GE Garza 02/19 Released w/o Limitations [address] [place] [address])(V A - Orthope dics) [address] [place] [address])(Cad Designer ecology) TELE CONSULT [id number] Notes Entered by: Juan MABRY 15 Apr 2022 1427 ------- ------- ------- ------- -- Rx JOSE REDDY 04/15 Referred for Appointment [address] [place] [address])(G ynecolo gy) [address] [place] [address])(Cad Designer ecology) OUTPATIENT [id number] 1 E FRANCOISE REGALADO 06/15 Released w/o Limitations [address] [place] [address])(G ynecolo gy) [address] [place] [address])(Cad Designer ecology) TELE CONSULT [id number] 0 Notes Entered by: SIMI REGALADO 30 Jun 2022 0854 ------- ------- ------- ------- -- results JOSE REDDY 06/30 Released to Self [facility] [address] [place] [address])(G ynecolo gy) [address] [place] [address])(Cad Designer ecology) TELE CONSULT [id number] Notes Entered by: SIMI REGALADO 30 Dec 2022 0752 ------- ------- ------- ------- -- results ERYN NEOL 12/30 Other Not Elsewhere Classified [address] [place] [address])(G ynecolo gy) -375 [facility] Outpatient [id number] FRANCOISE VILLANUEVA 10/23 Discharge Disposition: Home or Self Care 0055A-3 [facility] 5C-[facility] [id number] 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 addictions 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 ing,Oth er signs and symptom s in breast, Other ovarian cyst, right side FRANCOISE VILLANUEVA 10/24 Discharge Disposition: Home or Self Care -3 [facility] 6130C-Af- C-375Th [facility] Between Visit [id number] 11/07 Discharge Disposition: Home or Self Care 6130C-A f-C-375 Th [facility]- [facility] -375 th [facility] Outpatient [id number] FRANCOISE SHEPHERDKIZZY 12/19 Discharge Disposition: Home or Self Care 5A-3 75[facility] 5C-375 th [facility] Between Visit [id number] 12/25 Discharge Disposition: Home or Self Care - [address] [place] [address] Procedures Combined list of: 1) Procedures from Department of Veterans Affairs facilities going back up to thelast 18 months, not all [place] non-surgical procedures are included; 2) All procedures from the Department of Defense facilities. Procedure Procedure Type Code Date Perfomer Comments Sourc e Hysteroscopy, diagnostic (separate procedure) Hysteroscopy, diagnostic (separate procedure) 87927 08/29 with D+C for endometrial polyp-B9 -[address] [place], [place] [address]GRP- [facility] female Sterilization 11/29 essure [facility] [place] [address] colposcopy '80's, no tx. nl paps since [address] [place] [address] BLOOD,OCCULT,BY PEROXIDASE ACTIV (EG,GUAIAC),QUAL;FECES ,CONSECUTIVE COLLECTED SPECIMENS W SING DETERMIN,FOR COLORECTAL NEOPLAS SCREEN (IE,PAT PROVIDE 3 CARDS/SING TRIPLE CARD FOR CONSECUTIVE COLLECT) 03/10 [facility] SCREENING PAPANICOLAOU SMEAR; OBTAINING, PREPARING AND CONVEYANCE OF CERVICAL OR VAGINAL SMEAR TO LABORATORY 04/04 [facility] PSYCHIATRIC DIAGNOSTIC INTERVIEW EXAMINATION 03/13 [facility] MEDICAL NUTRITION THERAPY; INITIAL ASSESSMENT AND INTERVENTION, INDIVIDUAL, [id number] WITH THE PATIENT, EACH 15 MINUTES 01/29 [facility] SCREENING PAPANICOLAOU SMEAR; OBTAINING, PREPARING AND CONVEYANCE OF CERVICAL OR VAGINAL SMEAR TO LABORATORY 04/04 DoD SCREENING PAPANICOLAOU SMEAR; OBTAINING, PREPARING AND CONVEYANCE OF CERVICAL OR VAGINAL SMEAR TO LABORATORY 10/07 DoD INJECTION, TRIAMCINOLONE ACETONIDE, NOT OTHERWISE SPECIFIED, 10 MG 02/19 DoD INJECTION, TRIAMCINOLONE ACETONIDE, NOT OTHERWISE SPECIFIED, 10 MG 10/02 DoD BELT, STRAP, SLEEVE, GARMENT, OR COVERING, ANY TYPE 09/18 DoD WAIVER SERVICES; NOT OTHERWISE SPECIFIED (NOS) 07/14 DoD SCREENING PAPANICOLAOU SMEAR; OBTAINING, PREPARING AND CONVEYANCE OF CERVICAL OR VAGINAL SMEAR TO LABORATORY 04/24 DoD TELE ASSESS & MGT SRV PROV QUAL NONPHYS HLTH CARE PRO TO EST PAT,PARENT,GUARD NOT ORIG REL ASSESS & MGT SRV PROV W/IN PREV 7 DAYS NOR LEAD ASSESS & MGT SRV/PX W/IN NXT 24 HR/SOON APT;5-10 MIN MED DIS 01/17 DoD TELE ASSESS & MGT SRV PROV QUAL NONPHYS HLTH CARE PRO TO EST PAT,PARENT,GUARD NOT ORIG REL ASSESS & MGT SRV PROV W/IN PREV 7 DAYS NOR LEAD ASSESS & MGT SRV/PX W/IN NXT 24H/SOON APT; 11-20 MIN MED DIS 03/21 DoD TELE ASSESS & MGT SRV PROV QUAL NONPHYS HLTH CARE PRO TO EST PAT,PARENT,GUARD NOT ORIG REL ASSESS & MGT SRV PROV W/IN PREV 7 DAYS NOR LEAD ASSESS & MGT SRV/PX W/IN NXT 24 HR/SOON APT;5-10 MIN MED DIS 12/21 DoD SPLINT, PREFABRICATED, WRIST OR ANKLE 01/25 DoD ANKLE FOOT ORTHOSIS,WALKING BOOT TYPE,VARUS/VALGUS CORRECTION,ROCKER BOTTOM,ANTERIOR TIBIAL SHELL,SOFT INTERFACE,CUSTOM ARCH SUPPORT,PLASTIC/OTH MATERIAL,INCLUDES STRAPS & CLOSURES, CUSTOM FABRICATED 12/28 DoD TELE ASSESS & MGT SRV PROV QUAL NONPHYS HLTH CARE PRO TO EST PAT,PARENT,GUARD NOT ORIG REL ASSESS & MGT SRV PROV W/IN PREV 7 DAYS NOR LEAD ASSESS & MGT SRV/PX W/IN NXT 24 HR/SOON APT;5-10 MIN MED DIS 12/17 DoD TELE ASSESS & MGT SRV PROV QUAL NONPHYS HLTH CARE PRO TO EST PAT,PARENT,GUARD NOT ORIG REL ASSESS & MGT SRV PROV W/IN PREV 7 DAYS NOR LEAD ASSESS & MGT SRV/PX W/IN NXT 24 HR/SOON APT;5-10 MIN MED DIS 08/04 DoD TELE ASSESS & MGT SRV PROV QUAL NONPHYS HLTH CARE PRO TO EST PAT,PARENT,GUARD NOT ORIG REL ASSESS & MGT SRV PROV W/IN PREV 7 DAYS NOR LEAD ASSESS & MGT SRV/PX W/IN NXT 24 HR/SOON APT;5-10 MIN MED DIS 05/21 DoD TELE ASSESS & MGT SRV PROV QUAL NONPHYS HLTH CARE PRO TO EST PAT,PARENT,GUARD NOT ORIG REL ASSESS & MGT SRV PROV W/IN PREV 7 DAYS NOR LEAD ASSESS & MGT SRV/PX W/IN NXT 24 HR/SOON APT;5-10 MIN MED DIS 05/15 DoD SCREENING PAPANICOLAOU SMEAR; OBTAINING, PREPARING AND CONVEYANCE OF CERVICAL OR VAGINAL SMEAR TO LABORATORY 05/01 DoD TELE ASSESS & MGT SRV PROV QUAL NONPHYS HLTH CARE PRO TO EST PAT,PARENT,GUARD NOT ORIG REL ASSESS & MGT SRV PROV W/IN PREV 7 DAYS NOR LEAD ASSESS & MGT SRV/PX W/IN NXT 24 HR/SOON APT;5-10 MIN MED DIS 06/25 DoD TELE ASSESS & MGT SRV PROV QUAL NONPHYS HLTH CARE PRO TO EST PAT,PARENT,GUARD NOT ORIG REL ASSESS & MGT SRV PROV W/IN PREV 7 DAYS NOR LEAD ASSESS & MGT SRV/PX W/IN NXT 24 HR/SOON APT;5-10 MIN MED DIS 05/27 DoD TELE ASSESS & MGT SRV PROV QUAL NONPHYS HLTH CARE PRO TO EST PAT,PARENT,GUARD NOT ORIG REL ASSESS & MGT SRV PROV W/IN PREV 7 DAYS NOR LEAD ASSESS & MGT SRV/PX W/IN NXT 24 HR/SOON APT;5-10 MIN MED DIS 10/03 DoD TELE ASSESS & MGT SRV PROV QUAL NONPHYS HLTH CARE PRO TO EST PAT,PARENT,GUARD NOT ORIG REL ASSESS & MGT SRV PROV W/IN PREV 7 DAYS NOR LEAD ASSESS & MGT SRV/PX W/IN NXT 24 HR/SOON APT;5-10 MIN MED DIS 09/13 DoD 12-LEAD ECG PERFORMED (EM) 08/10 DoD COLORECTAL CANCER SCREENING; COLONOSCOPY ON INDIVIDUAL NOT MEETING CRITERIA FOR HIGH RISK 05/29 DoD URINE TEST, BY VISUAL COLOR COMPARISON METHODS 05/22 [facility] ULTRASOUND, TRANSVAGINAL 09/13 [facility] GONADOTROPIN, CHORIONIC (HCG); QUALITATIVE 07/20 DoD TELE ASSESS & MGT SRV PROV QUAL NONPHYS HLTH CARE PRO TO EST PAT,PARENT,GUARD NOT ORIG REL ASSESS & MGT SRV PROV W/IN PREV 7 DAYS NOR LEAD ASSESS & MGT SRV/PX W/IN NXT 24 HR/SOON APT;5-10 MIN MED DIS 01/07 DoD URINE TEST, BY VISUAL COLOR COMPARISON METHODS 07/16 [facility] SCREENING PAPANICOLAOU SMEAR; OBTAINING, PREPARING AND CONVEYANCE OF CERVICAL OR VAGINAL SMEAR TO LABORATORY 04/02 DoD TELE ASSESS & MGT SRV PROV QUAL NONPHYS HLTH CARE PRO TO EST PAT,PARENT,GUARD NOT ORIG REL ASSESS & MGT SRV PROV W/IN PREV 7 DAYS NOR LEAD ASSESS & MGT SRV/PX W/IN NXT 24 HR/SOON APT;5-10 MIN MED DIS 02/11 DoD TELE ASSESS & MGT SRV PROV QUAL NONPHYS HLTH CARE PRO TO EST PAT,PARENT,GUARD NOT ORIG REL ASSESS & MGT SRV PROV W/IN PREV 7 DAYS NOR LEAD ASSESS & MGT SRV/PX W/IN NXT 24 HR/SOON APT;5-10 MIN MED DIS 02/07 DoD TELE ASSESS & MGT SRV PROV QUAL NONPHYS HLTH CARE PRO TO EST PAT,PARENT,GUARD NOT ORIG REL ASSESS & MGT SRV PROV W/IN PREV 7 DAYS NOR LEAD ASSESS & MGT SRV/PX W/IN NXT 24 HR/SOON APT;5-10 MIN MED DIS 01/01 DoD CATHETERIZATION AND INTRODUCTION OF SALINE OR CONTRAST MATERIAL FOR SALINE INFUSION SONOHYSTEROGRAPHY (SIS) OR HYSTEROSALPINGOGRAPHY 07/10 [facility] HYSTEROSCOPY, SURGICAL; WITH BILATERAL FALLOPIAN TUBE CANNULATION TO INDUCE OCCLUSION BY PLACEMENT OF PERMANENT IMPLANTS 03/15 DoD SCREENING PAPANICOLAOU SMEAR; OBTAINING, PREPARING AND CONVEYANCE OF CERVICAL OR VAGINAL SMEAR TO LABORATORY 02/01 [facility] SCREENING PAPANICOLAOU SMEAR; OBTAINING, PREPARING AND CONVEYANCE OF CERVICAL OR VAGINAL SMEAR TO LABORATORY 03/25 [facility] IMMUNIZATION ADMINISTRATION (INCLUDES PERCUTANEOUS, INTRADERMAL, SUBCUTANEOUS, OR INTRAMUSCULAR INJECTIONS); 1 VACCINE (SINGLE OR COMBINATION VACCINE/TOXOID) 09/01 [facility] HEPATITIS B VACCINE (HEPB), ADULT DOSAGE, 3 DOSE SCHEDULE, FOR INTRAMUSCULAR USE 07/15 [facility] SCREENING PAPANICOLAOU SMEAR; OBTAINING, PREPARING AND CONVEYANCE OF CERVICAL OR VAGINAL SMEAR TO LABORATORY 02/09 [facility] INFLUENZA VIRUS VACCINE, TRIVALENT (IIV3), SPLIT VIRUS, 0.5 ML DOSAGE, FOR INTRAMUSCULAR USE 10/20 [facility] SCREENING PAPANICOLAOU SMEAR; OBTAINING, PREPARING AND CONVEYANCE OF CERVICAL OR VAGINAL SMEAR TO LABORATORY 02/16 [facility] Non-Physician Phone Call To Patient/Provider Brief (5-10min) Non-Physician Phone Call To Patient/Provider Brief (5-10min) [id number] 01/18 MAURICIO ROTH [facility] Non-Physician Phone Call To Pt/Provider Intermed (11-20 min) Non-Physician Phone Call To Pt/Provider Intermed (11-20 min) [id number] 03/23 BARON DONG [facility] Non-Physician Phone Call To Patient/Provider Brief (5-10min) Non-Physician Phone Call To Patient/Provider Brief (5-10min) [id number] 12/21 AMBER MCCALL [facility] Splint, prefabricated, wrist or ankle 01/25 NICK KUMARI [facility] Ankle foot orthosis, walking boot type, varus/valgus correction, rocker bottom, anterior tibial shell, soft interface, custom arch support, plastic or other material, includes straps and closures, custom fabricated 12/28 NICK KUMARI [facility] Non-Physician Phone Call To Patient/Provider Brief (5-10min) Non-Physician Phone Call To Patient/Provider Brief (5-10min) [id number] 12/21 SNEHA YEPEZ [facility] Non-Physician Phone Call To Patient/Provider Brief (5-10min) Non-Physician Phone Call To Patient/Provider Brief (5-10min) [id number] 08/06 STEVAN WATTS Non-Physician Phone Call To Patient/Provider Brief (5-10min) Non-Physician Phone Call To Patient/Provider Brief (5-10min) [id number] 05/27 LUDIN FORTE [facility] Non-Physician Phone Call To Patient/Provider Brief (5-10min) Non-Physician Phone Call To Patient/Provider Brief (5-10min) 19884 05/19 LUDIN FORTE Screening papanicolaou smear; obtaining, preparing and conveyance of cervical or vaginal smear to laboratory 05/01 FRANCOISE REGALADO [facility] Non-Physician Phone Call To Patient/Provider Brief (5-10min) Non-Physician Phone Call To Patient/Provider Brief (5-10min) [id number] 06/25 HAILEE PARSONS [facility] Non-Physician Phone Call To Patient/Provider Brief (5-10min) Non-Physician Phone Call To Patient/Provider Brief (5-10min) 82815 05/28 LUDIN FORTE [facility] Non-Physician Phone Call To Patient/Provider Brief (5-10min) Non-Physician Phone Call To Patient/Provider Brief (5-10min) 85421 10/05 LAY LUNA [facility] Non-Physician Phone Call To Patient/Provider Brief (5-10min) Non-Physician Phone Call To Patient/Provider Brief (5-10min) 87064 09/14 DAREN BLISS [facility] ECG 12-Lead ECG 12-Lead 3120F 08/10 RACH HOLLAND [facility] Colorectal cancer screening; colonoscopy on individual not meeting criteria for high risk 05/29 NICK CA [facility] Endometrial Biopsy By Suction Endometrial Biopsy By Suction 04972 05/22 FRANCOISE REGALADO Test Test [id number] 05/22 FRANCOISE REGALADO Saline Infusion Sonohysterography W/ Saline Inj During Transvaginal Sonography Saline Infusion Sonohysterography W/ Saline Inj During Transvaginal Sonography 85599 09/13 RASHMI RIVERA Test Test 95064 09/13 RASHMI RIVERA Urine HCG, Test Urine HCG, Test 95101 07/20 KENNETH WALLIS Endometrial Biopsy By Suction Endometrial Biopsy By Suction 78104 07/20 KENNETH WALLIS Non-Physician Phone Call To Patient/Provider Brief (5-10min) Non-Physician Phone Call To Patient/Provider Brief (5-10min) 36083 01/08 DAREN BLISS Test Test [id number] 07/16 FRANCOISE REGALADO Endometrial Biopsy By Suction Endometrial Biopsy By Suction 98822 07/16 FRANCOISE REGALADO Screening papanicolaou smear; obtaining, preparing and conveyance of cervical or vaginal smear to laboratory 04/02 FRANCOISE REGALADO Non-Physician Phone Call To Patient/Provider Brief (5-10min) Non-Physician Phone Call To Patient/Provider Brief (5-10min) 75432 02/12 LITA FITZPATRICK Non-Physician Phone Call To Patient/Provider Brief (5-10min) Non-Physician Phone Call To Patient/Provider Brief (5-10min) 23315 02/10 LITA FITZPATRICK Non-Physician Phone Call To Patient/Provider Brief (5-10min) Non-Physician Phone Call To Patient/Provider Brief (5-10min) 84698 01/02 LITA FITZPATRICK Hysterosalpingography With Catheter Contrast Injection Hysterosalpingography With Catheter Contrast Injection 35937 07/10 SUMIT FLOYD Physician Supervised Injection Intramuscular Physician Supervised Injection Intramuscular 95255 03/16 SUMIT FLOYD Conscious Sedation By Dr Performing Service 5 Yrs Or Older Initial 15 minutes Conscious Sedation By Dr Performing Service 5 Yrs Or Older Initial 15 minutes 49516 03/16 SUMIT FLOYD Nerve Block Paracervical (uterine) 03/16 SUMIT FLOYD Hysteroscopy With Bilateral Fallopian Tube Cannulation Hysteroscopy With Bilateral Fallopian Tube Cannulation 19006 03/16 SUMIT FLOYD Screening papanicolaou smear; obtaining, preparing and conveyance of cervical or vaginal smear to laboratory 02/01 FRANCOISE REGALADO Screening papanicolaou smear; obtaining, preparing and conveyance of cervical or vaginal smear to laboratory 03/25 RENARD EBTANCOURT Physician Supervised Injection Intramuscular Physician Supervised Injection Intramuscular 86440 09/01 YURY PEREZ [facility] Immunization Administration By Injection, One Vaccine Immunization Administration By Injection, One Vaccine 79210 09/01 YURY PEREZ [facility] Hepatitis B Vaccine (Active) Adult Dosage 07/15 TYRA DAWSON [facility] Screening papanicolaou smear; obtaining, preparing and conveyance of cervical or vaginal smear to laboratory 02/09 FRANCOISE REGALADO [facility] Immunization Administration By Injection, One Vaccine Immunization Administration By Injection, One Vaccine 56746 10/20 MIRANDA BA [facility] Influenza Split Virus Vaccine 0.5mL Dosage Intramuscular 10/20 MIRANDA BA [facility] Screening papanicolaou smear; obtaining, preparing and conveyance of cervical or vaginal smear to laboratory FRANCOISE REGALADO [facility] Orthopedic Strapping Elbow Orthopedic Strapping Elbow 73134 ANDRES, KEIRSTIN A DoD Belt, strap, sleeve, garment, or covering, any type ANDRES, KEIRSTIN A [facility] Corticosteroids Injection At Tendon Insertion Corticosteroids Injection At Tendon Insertion 15203 ANDRES, KEIRSTIN A DoD Injection, triamcinolone acetonide, not otherwise specified, 10 mg ANDRES, KEIRSTIN A 20mg each elbow DoD Injection, triamcinolone acetonide, not otherwise specified, 10 mg ANDRES, KEIRSTIN A 40mg each elbow [id number] March 2023 [facility] Social History Combined list of available smoking, tobacco, and other social history from Department of Defense and Veterans Affairs facilities. Social History Type Response Date Comment Sourc e Female 09/30/2021 Ambulatory Pha rmacy Tobacco Never-cigarette user Cigarette use:. Never-other tobacco user (not cigarettes) Other Tobacco use:. Ambulatory Pharmacy Sexual Orientation Ambula tory Pharmacy Gender identity Ambulator y Pharmacy This section is an empty social history section. DoD Assessment and Plan Combined list of future care activities from Department of Defense and Veterans Affairs facilities (e.g., assessment and plan notes, appointments, orders, and referrals). Additional future care activities may be listed in the Plan of Care section. 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 2.?Other specified counseling ?has repeat labs ordered for 12/23 Ordered: cholecalciferol(Vitamin D3 125 mcg (5000 intl units) oral capsule), 1 cap(s), Oral, Daily, with food, # 90 cap(s), 2 total refill(s), Maintenance, 1 cap(s) Oral Daily,Instr:with food, Pharmacy: [facility] [Not filled] ? 3.?Other signs and symptoms in breast ?last MRI [id number], nl mammo 07/22; MRI due 01/23; discussed change from [employer]?to [facility]; to contact clinic just after new yr and will place referral for MRI to have scheduled for [id number] or later; pt V/U ? Pt questions addressed and?instructions were provided to the patient. ? ? Francoise Regalado ? [facility] CUSTOMER SUCCESS DIRECTOR ? [facility], [facility]? Extracted from:Title: 0055 [facility] annual Author: DERIC WHITE, DO Date: 09/15/24 1.?Well adult Patient is a?59 YearsFemale?with history of?osteoporosis?presenting today for annual exam. Discussed most recent lab work, medications and prev med as documented. Patient currently feels well, denies any acute complaints. Does note?occasional joint stiffness and aching (Discussed below). Otherwise, ROS unremarkable. Physical exam is unremarkable. ? ? Patient is due for the following Preventative Medicine services, for which, patient has been ordered or referred as noted: ? Otherwise, patient's screenings and vaccinations are UTD as documented.? ? Patient with?ASCVD?risk <5%. May continue [place] 3,?but no statin indicated at this time.? Discussed d/c'ing ASA as it is no longer recommended for her, but she?declined. would like to continue.?Patient may follow up in 6-12 months for continued PCM care. ? A total of 40 minutes was spent on this visit reviewing previous notes, counseling the patient on the listed diagnoses, reviewing/ordering tests, adjusting medications, and documenting the findings in this note. ? 2.?Osteoarthritis HPI and exam consistent with likely OA. Discussed tx to include PRN ibuprofen at this time. Declines any other Rx or eval. Patient encouraged to return to clinic, present to UCC or ER for persistent worsening or development of other concerning symptoms. Patient cites understanding and agrees with plan of care. ? 3.?Localized osteoporosis [[place]] Continue Current management and eval with women's health. Ramon White DO, [facility], , [facility] Internal Medicine, [facility] ? 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 2.?Leiomyoma of uterus, unspecified Pt questions addressed and instructions were provided to the patient. ? Francoise Regalado [facility] CUSTOMER SUCCESS DIRECTOR [facility]? Extracted from:Title: SPEECH THERAPY TEACHER/WWE, osteoporosis Author: FRANCOISE REGALADO NP Date: 05/29/24 1.?Encounter for gynecological examination (general) (routine) with abnormal findings Over 50% of ?minute visit spent face to face with patient on education, reviewing history, and developing plan of care. Continue monthly BSE and yearly well woman exams.??Return to clinic in 1 year.? ? Exercise: 30 minutes of moderate exercise 5 days a week including cardio and strength training is recommended for a healthy lifestyle.?This should be in addition to your normal daily work/routine.??If you are trying to lose weight more exercise along with a healthy diet is recommended. ? Supplements/Vitamins: If you are not following, or able to follow a well-balanced diet indicated below due to personal or medical reasons, it is recommended you take a?multivitamin. This is especially important if you are trying to get as?women need additional folic acid before and during (400-1000 micrograms per day).??Daily calcium intake should be around 1200 mg per day?which is 120% of the recommended daily allowance if looking at food labels.??We recommend?Vitamin D3 2,000-3,000 international units a day?if you have not already been identified with an insufficiency or deficiency. ? Nutrition:?A healthy diet with protein, vegetables, fruits, grains, and dairy is advised. More information including example serving sizes can be found at?https://www.Aasonnmyplate.gov/. ?These amounts are appropriate for individuals who get less than 30 minutes per day of moderate physical activity, beyond normal daily activities. Those who are more physically active may be able to consume more while staying within calorie needs. ? Ordered: Hemoglobin A1c TSH w/ Reflex FT4 and Total T3 MG Mammo Prince Screening Bilateral ? 2.?Encounter for screening for malignant neoplasm of colon Ordered: Referral Request 2.0 - DoD ? 3.?Osteoporosis stressed ca, vit d, wt bearing exercise; con't fosamax as prescribed and f/u after bone density Ordered: calcium carbonate(calcium (as carbonate) 500 mg oral tablet), See Instructions, t1 tab po bid, # 180 tab(s), 3 total refill(s), Maintenance, t1 tab po bid, Pharmacy: [facility] [Federal Rx: #180 last filled 05/29/24] alendronate(Fosamax 70 mg oral tablet), 1 tab(s), Oral, every week, with 6 to 8 ounces plain water, at least 30 minutes before first food, beverage, or medication of the day, # 12 tab(s), 3 total refill(s), Maintenance, 1 tab(s) Oral every week,Instr:with 6 to 8 ounces plain water, at least... Vitamin D 25 Hydroxy Level ? 4.?Other signs and symptoms in breast calculated lifetime risk 28.3%; last MRI 01/22; mammo to be completed 07/22; contact clinic 11/21 for MRI referral to be completed 01/23 ? 5.?Other specified abnormal findings of blood chemistry low fat/low chol diet, no more than 25% total calories from fat, Ordered: Lipid Panel CT Bone Density Axial Skeleton ? 6.?Other specified counseling discussed RSV vaccine; f/u with immunizations to update ? Orders: aspirin(aspirin 81 mg oral delayed release tablet), 1 tab(s), Oral, Daily, # 90 tab(s), 0 total refill(s), Maintenance, 1 tab(s) Oral Daily, Pharmacy: [facility] [Last filled 05/29/24] Pt questions addressed and written discharge instructions were provided to the patient. ? Francoise Regalado [facility] CUSTOMER SUCCESS DIRECTOR [facility]? Extracted from:Title: WWE Author: FRANCOISE REGALADO NP Date: 05/19/23 1.?Encounter for gynecological examination (general) (routine) with abnormal findings Ordered: aspirin(Aspirin Low Dose 81 mg oral delayed release tablet), 1 tab(s), Oral, Daily, # 90 tab(s), 3 total refill(s), Maintenance, 1 tab(s) Oral Daily, Pharmacy: [facility] [Federal Rx: #90 last filled 05/19/23] MG Mammo Prince Screening Bilateral ? 2.?Localized osteoporosis [[place]] stressed ca, vit D, wt bearing exercise; see meds below; repeat bone density next yr ? 3.?Other specified abnormal findings of blood chemistry low fat/low chol diet, no more than 25% total calories from fat,? ? Orders: alendronate(alendronate 70 mg oral tablet), TAKE ONE TABLET BY MOUTH ONCE A WEEK DIRECTED, Oral, every week, # 12 EA, 4 total refill(s), Acute, TAKE ONE TABLET BY MOUTH ONCE A WEEK DIRECTED Oral every week, Pharmacy: [facility] [Federal Rx: #12 last filled 05/19/23] calcium carbonate(calcium (as carbonate) 600 mg oral tablet), 1 tab(s), Oral, BID, 180 tab(s), # 180 tab(s), 3 total refill(s), Maintenance, 1 tab(s) Oral BID,Instr:180 tab(s), Pharmacy: [facility] [Federal Rx: #180 last filled 05/19/23] multivitamin(Multivitamin oral tablet), 1 tab(s), Oral, Daily, # 90 tab(s), 3 total refill(s), Maintenance, 1 tab(s) Oral Daily, Pharmacy: [facility] [Not filled] ? Francoise Regalado [facility] CUSTOMER SUCCESS DIRECTOR [facility]? ? ? Extracted from:Title: 0055 IM [facility] Forehead Nodule Author: DERIC WHITE DO Date: 05/18/23 Nodule of skin of head Patient presenting with months of unchanged lesion of forehead. Nodule palpated, firm fluctuant, mobile, smooth nodule roughly .5 cm in diameter noted on exam. Consistent with lipoma vs cyst. Will refer to dermatology for further evaluation and excision. Patient encouraged to return to clinic, present to UCC or ER for persistent worsening or development of other concerning symptoms. Patient cites understanding and agrees with plan of care. ? A total of 30 minutes was spent on this visit reviewing previous notes, counseling the patient on the listed diagnoses, reviewing/ordering tests, adjusting medications, and documenting the findings in this note. ? ? ? B. Abe White DO, [facility], , [facility] Internal Medicine, [facility] ? 12/28/2024 Ambulatory Pharmacy Functional Status Combined list of recent functional and cognitive assessments recorded at Department of Defense and Veterans Affairs (VA).VA Functional [place] Measurement (FIM) Scale: 1 = Total Assistance (Subject = 0% +), 2 = Maximal Assistance (Subject = 25% +), 3 = Moderate Assistance (Subject = 50% +), 4 = Minimal Assistance (Subject = 75% +), 5 = Supervision, 6 = Modified [place] (Device), 7 = Complete [place] (Timely, Safely). Assessment Date/Time Source Assessment Type Assessment Skill Assessment Score Assessment Details No data available for this section
--- OUTSIDE RECORDS SUMMARY | 2024-12-28 02:06 | XMS_ITS | Clinical Summary ---
Author Organization [facility] Address [address] [place] [address]. 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 [facility] [place] [address] Lizeth Daniels, [employer] [address] [place], [place] [id number] Health Maintenance Due Date Last Done Comments Cervical Cancer Screening Pap Smear (Age 30 to 64) Every 3 Years 1964 Colorectal Cancer Screening Colonoscopy (10 Years) 1964 Annual Physical 1967 Hepatitis C 1982 Cervical Cancer Screening Pap with HPV Testing (Age 30 to 64) Every 5 Years 1994 Cervical Cancer Screening with HPV 1994 Mammogram Screening 2004 COVID-19 Vaccine ( season) 2024 09/05/2023, 09/24/2022, 11/08/2021, Additional history exists Influenza Adult (#1) 2024 09/12/2023, 09/16/2022, 09/12/2021, Additional history exists DTaP, Tdap and Td Vaccines (3 - Td or Tdap) 10/23/2032 10/23/2022, 09/01/2012, 10/22/1999 RSV Immunization or 60+ Years (1 - 1-dose 75+ series) 2039 Zoster Vaccines Completed 04/14/2019, 12/14/2018 Meningococcal B Vaccine Aged Out No l onger eligible based on patient's age to complete this topic Meningococcal Vaccine Aged Out No anita reese eligible based on patient's age to complete this topic Pneumococcal Vaccine: Pediatrics (0 to 5 Years) and At-Risk Patients (6 to 64 Years) Aged Out No longer eligible based on patient's age to complete this topic RSV Immunizations Under 20 Months Aged Out No longer eligible based on patient's age to complete this topic Insurance Care Teams Surveillance Technician Relationship Specialty Start Date End Date Elgin White DO [address] [place], [place] [id number] PCP - General INTERNAL MEDICINE 01/17/24
[2024-12-28 06:53] VITALS: BP 124/69; PULSE 76; RESP 16; TEMP 36.1; O2SAT 99; BMI 24.6
[2024-12-28] MEDS: LACTATED RINGERS 1,000 ML 150 ML IV CONT (07:02)
--- NOTE | 2024-12-28 07:17 | WPDANESEPPF ---
Anes - Initial Pre Proc Eval Procedure: Operation Date: 12/28/24 08:00 Proposed Procedures p Screening Colonoscopy - Matthew Stockton MD Date/Time: 12/28/24 07:17 Surgeon: Matthew Stockton MD Pre Op Diagnosis: screening malignant neoplasm colon Patient Data Age: 59 Gender: F Height: 1.65 m Weight: 67.2 kg Last Vital Signs Temp 36.1 C L 12/28/24 06:53 Pulse 76 12/28/24 06:53 Resp 16 12/28/24 06:53 BP 124/69 12/28/24 06:53 Pulse Ox 99 12/28/24 06:53 O2 Del Method Room Air 12/28/24 06:53 Allergies Allergy/AdvReac Type Severity Reaction Status Date / Time No Known Allergies Allergy Verified 12/28/24 06:50 Home Medications ?Medication ?Instructions ?Recorded ?Confirmed ?Type alendronate 70 mg tablet (Fosamax) 70 mg PO WEEKLY 12/14/24 12/28/24 History aspirin 81 mg tablet,delayed 81 mg PO .nightly 12/14/24 12/28/24 History release calcium carbonate 1,250 mg PO DAILY 12/14/24 12/28/24 History cholecalciferol (vitamin D3) 125 125 mcg PO DAILY 12/14/24 12/28/24 History mcg (5,000 unit) capsule lysine 500 mg tablet (L-Lysine) 500 mg PO BID 12/14/24 12/28/24 History multivitamin with minerals-folic 1 tablet PO DAILY 12/14/24 12/28/24 History acid 80 mcg chewable tablet (Centrum Adult 50 Plus) omega 2-ivj-rrh-fish oil 1,200 mg 1,200 cap PO DAILY 12/14/24 12/28/24 History (144 mg-216 mg) capsule (Fish Oil) Patient hx anesthesia problems: none Family hx anesthesia problems: none Results Review: All pre-operative results and documents have been reviewed as part of the pre-operative evaluation. [facility] Past Medical History Medical History (Updated 12/28/24 @ 07:18 by Eris Campa DO) Osteopenia Fibroid Social History Social History Smoking status: Never smoker Alcohol intake: never Substance use: never Substance use type: does not use Living arrangements: with family Spiritual care concerns: No Anes - Eval Final PreProcedure Day of Procedure 12/28/24 07:17 Patient weight: normal Heart: regular rate and rhythm Lungs: clear to auscultation and normal air movement Airway: Mallampati scale class II Neurological: alert and oriented Last oral intake: >/= 8 hours ASA classification: II Emergent: no Anesthetic plan: proceed Anesthesia type and monitoring: general GIVS and standard monitoring Results Review: All pre-operative results and documents have been reviewed as part of the pre-operative evaluation. Informed Consent: The patient's anesthetic plan and its attendant risks and benefits were discussed with the patient/family/POA. Questions were solicited and answers provided to the satisfaction of the patient/family/POA.
--- NOTE | 2024-12-28 07:46 | PM.HPGS ---
History of Present Illness History of Present Illness Consent: Risks, benefits, and alternatives have been discussed and questions answered. Patient agrees to proceed with procedure. Chief complaint: screening malignant neoplasm colon Narrative: Lita De La Fuente is a 59 year old female here for screening colonoscopy, last one 10 years ago Review of Systems Review of Systems: All systems reviewed & are unremarkable except as noted in HPI and below PMFSH Past Medical History Medical History (Updated 12/28/24 @ 07:48 by Matthew Stockton MD) Colon cancer screening Osteopenia Fibroid Social History Social History Smoking status: Never smoker Alcohol intake: never Substance use: never Substance use type: does not use Living arrangements: with family Spiritual care concerns: No Meds Home Medications and Allergies Home Medications ?Medication ?Instructions ?Recorded ?Confirmed ?Type alendronate 70 mg tablet (Fosamax) 70 mg PO WEEKLY 12/14/24 12/28/24 History aspirin 81 mg tablet,delayed 81 mg PO .nightly 12/14/24 12/28/24 History release calcium carbonate 1,250 mg PO DAILY 12/14/24 12/28/24 History cholecalciferol (vitamin D3) 125 125 mcg PO DAILY 12/14/24 12/28/24 History mcg (5,000 unit) capsule lysine 500 mg tablet (L-Lysine) 500 mg PO BID 12/14/24 12/28/24 History multivitamin with minerals-folic 1 tablet PO DAILY 12/14/24 12/28/24 History acid 80 mcg chewable tablet (Centrum Adult 50 Plus) omega 9-tlk-guj-fish oil 1,200 mg 1,200 cap PO DAILY 12/14/24 12/28/24 History (144 mg-216 mg) capsule (Fish Oil) Allergies Allergy/AdvReac Type Severity Reaction Status Date / Time No Known Allergies Allergy Verified 12/28/24 06:50 Vital Signs Vital Signs - 24 hr 12/28/24 06:53 Temperature 97 F L Pulse Rate 76 Respiratory Rate 16 Blood Pressure 124/69 Pulse Oximetry 99 Oxygen Delivery Room Air Exam Const: General: comfortable and no acute distress HENMT: Face/Nose/Sinus: Normal nares present Eyes: General: appearance normal, both eyes and all related structures Neck: Neck: no JVD Resp: Auscultation: clear to auscultation bilaterally Cardio: Rate: regular rate Rhythm: regular rhythm GI: Inspection: non-distended GI Palp: Yes Soft to palpation Skin: General skin exam: normal color Neuro: General: gait normal Speech: normal speech Extrem: General: normal to inspection Psych: Mental Status: mental status grossly normal Assessment and Plan Assessment and plan (1) Colon cancer screening: Code(s): Z12.11 - Encounter for screening for malignant neoplasm of colon Status: Acute Assessment and Plan: colonoscopy
[2024-12-28 08:01] VITALS: BP 109/66; PULSE 71; RESP 12; O2SAT 99
[2024-12-28 08:11] VITALS: BP 110/73; PULSE 64; RESP 13; O2SAT 100
[2024-12-28 08:21] VITALS: BP 117/73; PULSE 79; RESP 18; O2SAT 100
== END 2024-12-28 08:35 | disposition home or self-care (01) ==
PROVIDERS: Visit Provider Internal Medicine Gastroenterology
PROC: 0DJD8ZZ Inspection of Lower Intestinal Tract, Via Natural or Artificial Opening Endoscopic (ICD-10-PCS; CPT 45378; principal; 2024-12-28 08:00)
DX: Z12.11 Encounter for screening for malignant neoplasm of colon (principal); D12.2 Benign neoplasm of ascending colon; K63.5 Polyp of colon; K57.30 Diverticulosis of large intestine without perforation or abscess without bleeding; K64.4 Residual hemorrhoidal skin tags
CPT/HCPCS: 45385; 88305; J2704; J7120

== ENCOUNTER 2025-02-12 13:48 | Emergency (ER) | payer OTHER, SELFPAY ==
[2025-02-12 13:59] VITALS: BP 148/67; PULSE 87; RESP 18; TEMP 37.1; O2SAT 97
--- NOTE | 2025-02-12 14:01 | ED.FEMALEGU ---
HPI - Female Genitourinary General Chief complaint: Urogenital-Female Stated complaint: bladder infection Time Seen by Provider: 02/12/25 14:11 Source: patient, RN notes reviewed and old records reviewed Mode of arrival: ambulatory Limitations: no limitations History of Present Illness HPI Narrative: 59-year-old female presents to the [facility] with concerns for a urinary tract infection. Patient reports started with some urgency and frequency this morning. Has progressed to having blood in her urine 1 hour prior to arrival and now having increased pain when urinating Onset (ago): hour(s) Related Data Home Medications ?Medication ?Instructions ?Recorded ?Confirmed ?Last Taken ?Type alendronate 70 mg tablet (Fosamax) 70 mg PO WEEKLY 12/14/24 12/28/24 12/27/24 History aspirin 81 mg tablet,delayed 81 mg PO .nightly 12/14/24 12/28/24 12/27/24 History release calcium carbonate 1,250 mg PO DAILY 12/14/24 12/28/24 12/27/24 History cholecalciferol (vitamin D3) 125 125 mcg PO DAILY 12/14/24 12/28/24 12/23/24 History mcg (5,000 unit) capsule lysine 500 mg tablet (L-Lysine) 500 mg PO BID 12/14/24 12/28/24 12/27/24 History multivitamin with minerals-folic 1 tablet PO DAILY 12/14/24 12/28/24 12/23/24 History acid 80 mcg chewable tablet (Centrum Adult 50 Plus) omega 5-jbg-yhx-fish oil 1,200 mg 1,200 cap PO DAILY 12/14/24 12/28/24 12/23/24 History (144 mg-216 mg) capsule (Fish Oil) Allergies Allergy/AdvReac Type Severity Reaction Status Date / Time No Known Allergies Allergy Verified 02/12/25 14:03 Review of Systems Review of Systems: All systems reviewed & are unremarkable except as noted in HPI and below Constitutional: Constitutional: Reports no additional constitutional complaints ENT: Reports system reviewed and no additional complaints, except as documented Cardiovascular: Cardiovascular: Reports no additional cardiovascular complaints, Denies chest pain and Denies dyspnea Respiratory: Respiratory: Reports no additional respiratory complaints, Denies chest congestion, Denies cough and Denies dyspnea Genitourinary: Genitourinary: Reports as per HPI Musculoskeletal: Musculoskeletal: Reports no additional musculoskeletal complaints Integumentary/Breasts: Skin/Breast: Reports system reviewed and no additional complaints, except as docu PMFSH Past Medical History Medical History Colon cancer screening Osteopenia Fibroid Social History Social History Smoking status: Never smoker Alcohol intake: never Substance use: never Substance use type: does not use Living arrangements: with family Spiritual care concerns: No Comments At the time of my signature, I reviewed and agree with the nursing past medical, surgical, social, and family history. There is no relevant family history pertinent to the patient complaint. Exam Const: General: cooperative, healthy appearing, comfortable, no acute distress, well developed, alert and well nourished Nutritional Appearance: well nourished Orientation/consciousness: patient oriented x3 Limitations: no limitations HENMT: Head: normal to inspection Eyes: General: appearance normal, both eyes and all related structures Alignment and Position: alignment normal Neck: Neck: normal visual inspection, full ROM, no lymphadenopathy and no meningeal signs Chest: Chest palpation & inspection: normal inspection of the chest Resp: Effort & Inspection: normal respiratory effort and able to speak in complete sentences Auscultation: clear to auscultation bilaterally, no crackles, no rales, no rhonchi and no wheezes Cardio: Rate: regular rate GI: GI Palp: No abdominal tenderness : General: Yes no CVA tenderness Back/Spine/Pelvis: Back: no CVA tenderness Skin: General skin exam: normal color and no rashes or lesions noted Neuro: General: patient oriented x3, gait normal, moves all extremities and no meningeal signs Cognition (Neuro): normal cognition Speech: normal speech Gait exam (Neuro): Normal gait present Extrem: General: normal to inspection, full ROM, capillary refill normal and normal gait Psych: Appearance: grossly normal and well kempt Mental Status: mental status grossly normal Speech and movement: Normal speech and movement present and Clear speech present Affect: normal affect Attitude: cooperative Course Course Level of Care: Express Care Visit Vital Signs Vital signs: Vital Signs Temperature 98.8 F 02/12/25 13:59 Pulse Rate 87 02/12/25 13:59 Respiratory Rate 18 02/12/25 13:59 Blood Pressure 148/67 H 02/12/25 13:59 Pulse Oximetry 97 02/12/25 13:59 Oxygen Delivery Room Air 02/12/25 13:59 Temperature 98.8 F 02/12/25 13:59 Pulse Rate 87 02/12/25 13:59 Respiratory Rate 18 02/12/25 13:59 Blood Pressure 148/67 H 02/12/25 13:59 Pulse Oximetry 97 02/12/25 13:59 Oxygen Delivery Room Air 02/12/25 13:59 Reviewed MDM - Female Genitourinary MDM Narrative Medical decision making narrative: Patient sitting comfortably in exam room. Nontoxic, vitals stable. Patient presents with concerns for UTI. Patient does have leukocytes in her urine, will treat with antibiotic. Will send for culture. Patient appropriate for outpatient treatment and follow-up Discharge instructions reviewed with patient, as well as provided in writing per nursing staff. The instructions also include specific and strict return/GO TO THE ER as well as f/u information. All questions have been answered, and the patient deny any further questions with discharge and discharge plan. Some parts of this dictation were generated by voice recognition software and may contain typographical and/or grammatical inaccuracies. Differential Diagnosis Differential diagnosis: Likely urinary tract infection and cystitis Lab Data Labs: Lab Results 02/12/25 Range/Units 14:08 POC Urine Color Brown POC Urine Clarity Cloudy POC Urine pH 5.5 POC Ur Specif [place] 1.030 POC Urine Protein 3+ (Negative) POC Ur Glucose (UA) Negative (Negative) POC Urine Ketones Trace (Negative) POC Urine Blood 3+ (Negative) POC Urine Nitrite Negative (Negative) POC Urine Bilirubin 1+ (Negative) POC Urine Urobilinogen 1.0 POC U Leukocyte Esteras 3+ (Negative) Reviewed Critical Care Time Critical Care Time Critical Care Time: No Discharge Plan Discharge Clinical Impression: Urinary tract infection Qualifiers: Urinary tract infection type: acute cystitis Hematuria presence: with hematuria Qualified Code(s): N30.01 - Acute cystitis with hematuria Patient Disposition: Home, Self-Care Condition: Stable Instructions: Antibiotic Form, Urinary Tract Infection in Women (ED) Additional Instructions: Increased water intake Take Tylenol as needed for pain Take antibiotic as prescribed Today your urine dip showed a probability of a UTI. You have been prescribed an antibiotic. Your urine will be sent to our lab for a culture. If at that time a bacteria grows that is not covered by the antibiotic prescribed you will be notified. Follow-up with primary care For new or worsening symptoms go directly to the emergency room Patient Language: Guatemalan Prescriptions: New amoxicillin-pot clavulanate 875-125 mg tablet 1 tablet PO Q12H 5 Days Qty: 10 0RF No Action aspirin 81 mg tablet,delayed release (DR/EC) 81 mg PO .nightly cholecalciferol (vitamin D3) 125 mcg (5,000 unit) capsule 125 mcg PO DAILY Centrum Adult 50 Plus 80 mcg tablet,chewable 1 tablet PO DAILY calcium carbonate 500 mg calcium (1,250 mg) tablet 1,250 mg PO DAILY omega 0-nxy-rhe-fish oil [Fish Oil] 1,200 (144-216) mg capsule 1,200 cap PO DAILY alendronate [Fosamax] 70 mg tablet 70 mg PO WEEKLY lysine [L-Lysine] 500 mg tablet 500 mg PO BID Follow-up/Referrals: Afshan,Ryan [Other] Time of Disposition: 14:31
[2025-02-12 14:11] LABS: EDUAAPPEAR Cloudy; EDUABILI 1+ (Negative); EDUABLOOD 3+ (Negative); EDUACOLOR1 Brown; EDUAGLUCOSE Negative (Negative); EDUAKETONE Trace (Negative); EDUALEUKO 3+ (Negative); EDUANITRATE Negative (Negative); EDUAPH 5.5; EDUAPROTEIN 3+ (Negative)
--- OUTSIDE RECORDS SUMMARY | 2025-02-12 16:21 | XMS_ITS | Continuity of Care Document ---
Author Name [facility] Organization [facility] Care Team Providers Care [employer] Supervisor Name Role Phone [facility] Unavailable Unavailable Problems Combined list of problems from Department of Defense and Veterans Affairs facilities. It does not include entries that were removed or entered in error. Problem Status Onset Date Problem Type Date of Resolution Comments Source URI - Upper respiratory infection Active 02/07/2025 Diagnosis [facility] History of embolism Active 02/07/2025 Diagnosis [facility] History of transient ischemic attack Active 01/12/2025 Diagnosis 6130C-Af- C[facility] Atrial fibrillation Active 01/03/2025 Diagnosis [facility] CVA - Cerebrovascular accident Active 01/03/2025 Diagnosis [facility] Acne Active Condition [facility] Allergic rhinitis Active Condition 0055 [facility] Endometrial polyp with abnormal uterine bleeding Active Condition 0055C[facility] Eustachian tube disorder Active Condition [facility] Herpes simplex type 1 infection Active Condition [facility] Lateral epicondylitis of left humerus Active Condition [facility] Lateral epicondylitis of right humerus Active Condition [facility] Leiomyoma of uterus Active Condition 00 55C[facility] Localized osteoporosis [[place]] Active Condition [facility] Nontoxic nodular thyroid goiter Active Condition 0055C[facility] Osteoarthritis Active Condition 0055C[facility] Overweight Active Condition [facility] Vitamin D deficiency Active Condition 0 0[facility] Medications Combined list of outpatient medications from Department of Defense and Veterans Affairs facilities.Medications provided include 1) outpatient medications from the last 15 months, and 2) patient-reported medications. Medication Details Route Status Patient Instructions Prescription Expires Prescription Number Last Dispense Date Ordering Provider Order Date Order Qty Source [facility] oral capsule 0 total refill(s ), Maintena nce Ordered 2023 0055C[facility] alendronate 70 mg oral tablet TAKE ONE TABLET BY MOUTH ONCE A WEEK DIRECTED , # 12 EA, 1 total refill(s ), Acute Discont inued 05/19/2023 3 2022 12.0 Ambulat ory Pharmac y alendronate 70 mg oral tablet TAKE ONE TABLET BY MOUTH ONCE A WEEK DIRECTED , Oral, every week, # 12 EA, 4 total refill(s ), Acute, Pharmacy : [facility] Oral (given by mouth) Complet ed 05/19/2024 4 2023 12.0 0055C-3 [facility] Chevy alendronate 70 mg oral tablet 12 tab(s), 0 Refill(s ), 0 total refill(s ), Soft Stop Cancele d 05/29/20242023 0055C-3 [facility] alendronate 70 mg oral tablet 12 tab(s), 0 total refill(s ), Soft Stop Discont inued 05/12/20232022 0055C-3 [facility] [place] aspirin 81 mg oral delayed release tablet 81 mg, ORAL, 1 Refill(s ), 0 total refill(s ), Soft Stop Discont inued 05/29/20242023 0055C-3 [facility] aspirin 81 mg oral delayed release tablet 1 tab(s), Oral, Daily, # 90 tab(s), 3 total refill(s ), Sharlenea [facility], Pharmacy : [facility] Oral (given by mouth) Ordered 4 2023 90.0 0055C-3 [facility] [place] aspirin 81 mg oral delayed release tablet 1 tab(s), Oral, Daily, # 90 tab(s), 0 total refill(s ), Maintena [facility], Pharmacy : [facility] Oral (given by mouth) Discont inued 09/15/2024 4 2023 90.0 0055C-[address] [place] [address] aspirin 81 mg oral delayed release tablet aspirin 81 mg oral delayed release tablet Start Date: 04/24/21 Stop Date: 05/12/23 Status: Anel scott Repeat number: 1 Discont inued 05/12/20232022 No Facilit y Access Aspirin Low Dose 81 mg oral delayed release tablet 90 tab(s), 0 total refill(s ), Soft Stop Discont inued 05/19/20232022 0055C-3 [facility] Aspirin Low Dose 81 mg oral delayed release tablet 1 tab(s), Oral, Daily, # 90 tab(s), 3 total refill(s ), [facility], Pharmacy : [facility] Oral (given by mouth) Discont inued 05/29/2024 4 2023 90.0 0055C-[address] [place] [address] atorvastati n 80 mg oral tablet 30 EA, 0 Refill(s ), 0 total refill(s ), Soft Stop Discont inued 01/19/20252024 6130C-A f-C-[facility] atorvastati n 80 mg oral tablet 1 tab(s), Oral, Daily, 30 EA, 0 Refill(s ), # 90 tab(s), 2 total refill(s ), [facility], Pharmacy : [facility] Oral (given by mouth) Ordered 5 2024 90.0 6130C-A f-C-375 [facility] calcium (as carbonate) 500 mg oral tablet See Instruct ions, t1 tab po bid, # 180 tab(s), 3 total refill(s ), [facility], Pharmacy : [facility] Ordered 4 2023 180.0 0055C-[address] [place] [address] calcium (as carbonate) 600 mg oral tablet 180 tab(s), 0 total refill(s ), Soft Stop Discont inued 05/19/20232022 0055C-3 75th AISHWARYA Reece calcium (as carbonate) 600 mg oral tablet 1 tab(s), Oral, BID, 180 tab(s), # 180 tab(s), 3 total refill(s ), Olvin davis, Pharmacy : [facility] Oral (given by mouth) Discont inued 07/18/2024 2023 180.0 0055C-3 [facility] AISHWARYA Reece calcium (as carbonate) 600 mg oral tablet calcium (as carbonat e) 600 mg oral tablet Start Date: 04/24/21 Stop Date: 05/19/23 Status: Ryliei tyler Repeat number: 1 Discont inued 05/19/20232022 No Facilit y Access Caltrate 600 + D oral tablet 0 Refill(s ), 0 total refill(s ), Soft Stop Discont inued 05/29/20242023 0055C-3 [facility] AISHWARYA Reece [employer] oral tablet 90 tab(s), 0 total refill(s ), Soft Stop Discont inued 05/29/20242023 0055C-3 [facility] AISHWARYA Reece cholecalcif olvin 125 mcg (5000 intl units) oral capsule 0 Refill(s ), 0 total refill(s ), Soft Stop Discont inued 05/29/20242023 0055C-3 [facility] AISHWARYA Reece diclofenac 1% topical gel See instruct ions, Apply 2 grams (upper extremit ies) or 4 grams (lower extremit ies) to affected area topicall y four times daily as needed for pain. Max total body dose of 32 grams per day, # 100 g, 0 total refill(s ), Olvin davis Discont inued 05/19/20232022 100.0 0055C-3 [facility] AISHWARYA Reece diclofenac 1% topical gel diclofen ac 1% topical gel Start Date: 09/18/21 Stop Date: 05/12/23 Status: Anel scott Repeat number: 1 Discont inued 05/12/20232022 No Facilit y Access Eliquis 5 mg oral tablet 60 EA, 0 Refill(s ), 0 total refill(s ), Soft Stop Discont inued 01/19/20252024 6130C-A [facility] Eliquis 5 mg oral tablet 1 tab(s), Oral, BID, 180 EA, 3 Refill(s ), # 180 tab(s), 3 total refill(s ), Maintena nce, Pharmacy : [facility] Oral (given by mouth) Ordered 5 2024 180.0 6130C-A f-C[facility] famciclovir 500 mg oral tablet 30 EA, 0 Refill(s ), 0 total refill(s ), Soft Stop Ordered 2023 0055C[facility] famciclovir 500 mg oral tablet 3 total refill(s ) Discont inued 05/29/20242023 No Facilit y Access FLUARIX QUAD 2338-6114 (influenza virus vaccine quadrival 4669-7649(6 mos and up)/PF), 60MCG/.5ML, FLUARIX QUAD 2020- 2 (influen za virus vaccine quadriva l 2020- 2(6 mos and up)/PF), 60MCG/.5 ML, Start Date: 09/16/21 Stop Date: 05/19/23 Status: Disconti nued Repeat number: 1 Discont inued 05/19/20232022 No Facilit y Access FLUCELVAX QUAD 5319-5631 (flu vaccine quad 6232-3643(4 years and older)cell derived/PF) , 60MCG/.5ML FLUCELVA X QUAD 2019- 1 (flu vaccine quad 2019- 1(4 years and older)ce ll derived/ PF), 60MCG/.5 ML Start Date: 09/11/20 Stop Date: 05/19/23 Status: Disconti nued Repeat number: 1 Discont inued 05/19/20232022 No Facilit y Access Fosamax 35 mg oral tablet tab(s), Oral, every week, 0 total refill(s ), Maintenlane pedrazae Oral (given by mouth) Discont inued 05/12/20232022 0055C-3 [facility] Fosamax 70 mg oral tablet 1 tab(s), Oral, every week, with 6 to 8 ounces plain water, at least 30 minutes before first food, beverage , or medicati on of the day, # 12 tab(s), 3 total refill(s ), Maintena [facility], Pharmacy : [facility] Oral (given by mouth) Ordered 2023 12.0 0055C-[address] [place] [address] [place] lysine 500 mg oral capsule 500 mg, Oral, BID, 0 total refill(s ), Maintena nce Oral (given by mouth) Ordered 2022 0055C-[address] [place] [address] [place] magnesium amino acids chelate Oral, 0 Refill(s ), 0 total refill(s ), Soft Stop Oral (given by mouth) Discont inued 10/24/20242023 0055C-[address] [place], [place] [address]Kayleigh Reece miscellaneo us medication 90 tab(s), 0 total refill(s ), Soft Stop Discont inued 05/19/20232022 0055C-[address] [place], [place] [address]Kayleigh Reece Motrin IB 200 mg oral tablet 2 tab(s), Oral, every 4 hr, PRN fever, # 120 tab(s), 0 total refill(s ), Maintena nce Oral (given by mouth) Ordered 2022 120.0 0055C-[address] [place], [place] [address]Kayleigh Reece Multivitami n oral tablet 1 tab(s), Oral, Daily, # 90 tab(s), 3 total refill(s ), Maintena [facility], Pharmacy : [facility] Oral (given by mouth) Ordered 2022 90.0 0055C-[address] [place] [address] [place] multivitami n with minerals tablet multivit asher with minerals tablet Start Date: 04/24/21 Stop Date: 05/19/23 Status: Disconti nued Repeat number: 1 Discont inued 05/19/20232022 No Facilit y Access omega-3 polyunsatur ated fatty acids 1000 mg oral capsule omega-3 polyunsa turated fatty acids 1000 mg oral capsule Start Date: 07/14/21 Status: Ordered Repeat number: 1 Ordered 2020 No Facilit y Access Oyster Rohan 1250 mg (500 mg elemental calcium) oral tablet 180 tab(s), 0 Refill(s ), 0 total refill(s ), Soft Stop Discont inued 05/29/20242023 0055C-[address] [place], [place] [address]DEVI Reece Vitamin D2 50 mcg (2000 intl units) oral capsule 2 cap(s), Oral, Daily, WH increase to 5000u pt has 1000u in her other daily MVI, 0 total refill(s ), Maintena nce Oral (given by mouth) Ordered 20235C-[address] [place] [address] [place] Vitamin D3 0 total refill(s ), Maintena nce Discont inued 05/19/202320225C-[address] [place], [place] [address]ASHLEE [place] Vitamin D3 125 mcg (5000 intl units) oral capsule 1 cap(s), Oral, Daily, with food, # 90 cap(s), 2 total refill(s ), Maintena nce, Pharmacy : [facility] Oral (given by mouth) Ordered 2023 90.0 5C-[address] [place] [address] [place] Vitamin D3 50 mcg (2000 intl units) oral tablet 90 tab(s), 0 total refill(s ), Soft Stop Discont inued 10/24/202420235C-[address] [place] [address] [place] Immunizations Combined list of available immunizations from the Department of Defense and Veterans Affairs facilities. Immunization Series Date Given Administered By Site Reaction Lot Number CVX Code Drug Content Director Status Comments Source RSV vaccine preF3, recombinant 2023 DARLENERBRUNN ER 303 complet ed Result Comment: Route: Unknown Manufactu rer: OTH (SKB) 0055C-[address] [place] [address] [place] Influenza, injectable, MDCK-pf 2023 DARLENERBRUNN ER 153 complet ed Result Comment: Route: Unknown Manufactu rer: OTH (SEQ) 0055C-[address] [place], [place] [address]DEVI Reece Influenza, inj, MDCK, quadrivalent- pf 2022 DARLENERBRUNN ER 171 complet ed Result Comment: Route: Unknown Manufactu rer: OTH (SEQ) 0055C-[address] [place], [place] [address]Kayleigh Reece COVID-19 vaccine(Comir carolyn 12y+) 2022 DARLENERBRUNN ER 309 complet ed Result Comment: Route: Unknown Manufactu rer: OTH (PFR) 0055C-3 [facility] [place] tetanus, diphtheria, acellular pertu is 2021 DARLENERBRUNN ER 115 complet ed Result Comment: Route: Unknown Manufactu rer: OTH (SKB) 0055C-3 [facility] [place] COVID-19 vaccine(Pfize r Bival 12yr+) 2021 DARLENERBRUNN ER 300 complet ed Result Comment: Route: Unknown Manufactu rer: OTH (PFR) 0055C-3 [facility] [place] Influenza, inj, MDCK, quadrivalent- pf 2021 DARLENERBRUNN ER 171 complet ed Result Comment: Route: Unknown Manufactu rer: OTH (SEQ) 0055C-3 [facility] [place] COVID Vaccine Pfizer 2020 DARLENERBRUNN ER 208 complet ed Result Comment: Unit: Unknown Manufactu rer: Pfizer Manufactu ring [place] (PFR) 0055C-3 [facility] [place] influenza, injectable, quadrivalent- pf 2020 DARLENERBRUNN ER 150 complet ed Result Comment: Unit: Unknown Manufactu rer: () 0055C-3 [facility] [place] influenza virus vaccine, unspecified 2019 DARLENERBRUNN ER 88 complet ed Result Comment: Route: Unknown Manufactu rer: OTH (unk) 0055C-3 [facility] [place] Influenza, inj, MDCK, quadrivalent- pf 2019 DARLENERBRUNN ER 171 complet ed Result Comment: Unit: Unknown Manufactu rer: () 0055C-3 [facility] [place] influenza virus vaccine, inactivated 2019 DARLENERBRUNN ER 88 complet ed Result Comment: Route: Unknown Manufactu rer: OTH (SEQ) 0055C-3 [facility] [place] influenza, injectable, quadrivalent- pf 2018 MSALYSON NNER 150 complet ed Result Comment: Route: Unknown Manufactu rer: OTH (SKB) 0055C-3 [facility] [place] zoster vaccine, inactivated 2018 MSALYSON NNER 187 complet ed Result Comment: Route: Unknown Manufactu rer: OTH (SKB) 0055C-3 75[facility] MEDDEVI Reece zoster vaccine, inactivated 2018 NNER 187 complet ed Result Comment: Unit: Unknown Manufactu rer: () 0055C-3 75th MED[facility] Re[facility] influenza, injectable, quadrivalent- pf 2017 NNER 150 complet ed Result Comment: Route: Unknown Manufactu rer: [facility] (SEQ) 0055C-3 [facility] [place] influenza, injectable, quadrivalent- pf 2015 zzLef t Arm [id number] GlaxoSmithKli ne complet ed influenza , injectabl e, quadrival ent-pf 09/23/16 Given Ambulat ory Pharmac y influenza, seasonal, injectable-pf 2014 DONOVAN ER 140 complet ed Result Comment: Unit: Unknown Manufactu rer: () 5C-3 [facility] influenza, seasonal, injectable 2013 zzLef t Arm [id number] 141 Novartis Pharmaceutica ls complet ed influenza , seasonal, injectabl e 09/21/14 Given Ambulat ory Pharmac y influenza, seasonal, injectable 2011 zzRig ht Arm [id number] 141 sanofi pasteur complet ed influenza , seasonal, injectabl e 09/01/12 Given Ambulat ory Pharmac y tetanus, diphtheria, acellular pertu is 2011 zzLef t Arm [id number] 115 GlaxoSmithKli ne complet ed tetanus, diphtheri a, acellular pertussis 09/01/12 Given Ambulat ory Pharmac y influenza, seasonal, injectable-pf 2010 zzLef t Arm [id number] 140 sanofi pasteur complet ed influenza , seasonal, injectabl e-pf 10/08/11 Given Ambulat ory Pharmac y influenza virus vaccine, live 2008 [id number] [email or web address] complet ed influenza virus vaccine, live 09/30/09 Given Ambulat ory Pharmac y influenza virus vaccine,split 2007 zzLef t Arm [id number] 15 sanofi pasteur complet ed influenza virus vaccine,s plit 11/06/08 Given Ambulat ory Pharmac y influenza virus vaccine,split 2005 zzLef t Arm [id number] 15 GlaxoSmithKli ne complet ed influenza virus vaccine,s plit 11/09/06 Given Ambulat ory Pharmac y hepatitis B adult vaccine 2005 zzLef t Arm [id number] [id number] 43 GlaxoSmithKli ne complet ed hepatitis B adult vaccine 09/01/06 Given Ambulat ory Pharmac y HepB, Adult 2005 DARLENERBRUNN ER [id number] 43 complet ed Result Comment: Route: Intramusc ular(IM) Manufactu rer: [employer] (SKB) 0055C-[address] [place] [address] hepatitis B adult vaccine 2005 zzLef t Arm [id number] [id number] 43 GlaxoSmithKli ne complet ed hepatitis B adult vaccine 07/15/06 Given Ambulat ory Pharmac y HepB, Adult 2005 DARLENERBRUNN ER [id number] 43 complet ed Result Comment: Route: Intramusc ular(IM) Manufactu rer: [employer] (SKB) 0055C-[address] [place] [address] influenza virus vaccine,split [facility] [id number] 15 sanofi pasteur complet ed influenza virus vaccine,s plit 10/19/05 Given Ambulat ory Pharmac y influenza virus vaccine, whole virus 2002 zzLef t Arm [id number] 16 Novartis Pharmaceutica complet ed influenza virus vaccine, whole virus 09/20/03 Given Ambulat ory Pharmac y influenza virus vaccine, whole virus 2001 zzLef t Arm [id number] 16 [employer] complet ed influenza virus vaccine, whole virus 10/04/02 Given Ambulat ory Pharmac y tetanus-dipht h toxoids (Td) adult/adol 1998 zzLef t Arm [id number] complet ed tetanus-d iphth toxoids (Td) adult/ado l 10/22/99 Given Ambulat ory Pharmac y Results Combined list of recent chemistry, hematology and other laboratory results from Department of Defense and Veterans Affairs, ranging from 15 months to all on record, depending upon the facility. Order Name Results Value Reference Range Date Interpretation Specimen Comments Source Chemistry Vitamin D 25 OH 69 ng/mL 30 - 100 12/19 N Interpretive Data: Classificati on of Vitamin D Status: Deficient: <20 ng/mL Insufficient : 20-29 ng/mL Sufficient: 30-100 ng/mL Possible Toxicity: >100 ng/mL This assay is for the quantitative determinatio n of total 25 (OH) vitamin D. It is intended as an aid in the determinatio n of vitamin D sufficiency. Results should always be interpreted in conjunction with the patient's medical history, clinical presentation , and other findings. Testing performed by [employer] . [id number] [facility] [employer] Chemistry Cholesterol Total 210 mg/dL 12/19 H Interpretive Data: According to the [place] [employer]: AGES 0-19: Desirable: < 170 mg/dL Borderline High: 170-199 mg/dL High Blood Cholesterol: >/= 200 mg/dL ADULTS: Desirable < 200 mg/dL Borderline High: 200-239 mg/dL High Blood Cholesterol: >/= 240 mg/dL [address] [place] [address] Chemistry Chol/HDL 3 mg/dL 12/[address] [place] [address] Chemistry HDL Cholesterol 62 mg/dL 40 - 59 12/19 H Interpretive Data: HDL (HIGH DENSITY LIPOPROTEIN) : ADULTS: Low: < 40 mg/dL High: >/= 60 mg/dL AGES 0 -19: Low: < 40 mg/dL Borderline Low: 40 - 45 mg/dL Acceptable: > 45 mg/dL [address] [place] [address] Chemistry LDL 145 mg/dL 100 - 130 12/19 H Interpretive Data: AGES 0-19: Desirable: < 110 mg/dL Borderline High: 110-129 mg/dL High: >/= 130 mg/dL ADULTS: Desirable: <100 mg/dL Near/above optimal: 100-130 mg/dL Borderline High: 131-159 mg/dL High: 160-189 mg/dL Very High: 190 mg/dL [address] [place] [address] Chemistry Triglycerid es 60 mg/dL 7 - 149 12/19 N Interpretive Data: AGES 0-9: Desirable: < 75 mg/dL Borderline High: 75-99 mg/dL High: >/= 100 mg/dL AGES 10-19: Desirable: < 90 mg/dL Borderline High: 90-129 mg/dL High: >/= 130 mg/dL ADULTS: Desirable: < 150 mg/dL Borderline High: 150-199 mg/dL High: >/= 240 mg/dL Very High: >/= 500 mg/dL [facility] Chemistry LDL/HDL 2 12/[address] [place] [address] Chemistry eGFR CKD EPI 103 mL/min /1.73_ m2 09/01 Interpretive Data: Estimated Glomerular Filtration Rate (eGFR) calculated using the 2020 Chronic Kidney Disease-Epid emiology (CKD-EPI) Collaboratio n creatinine equation; units of measure are mL/min/1.73 m2. Results are only valid for adults (>=18 years) whose serum creatinine is in steady state. eGFR calculations are not valid for patients with acute kidney injury and for patients on dialysis. Creatinine-b ased estimates of kidney function may also be inaccurate in patients with reduced creatinine generation due to decreased muscle mass (e.g., malnutrition , severe hypoalbumine nereyda, sarcopenia, chronic neuromuscula r disease, amputations, severe heart failure or liver disease) and in patients with increased creatinine generation due to increased muscle mass (e.g., muscle builders, anabolic steroids) or increased dietary intake. CKD is diagnosed based on abnormalitie s of kidney structure or function, present for >3 months, with implications for health and disease. CKD is classified and staged based on cause, eGFR and albuminuria (quantified as urine albumin to creatinine ratio). An eGFR >60 mL/min/1.73 m2 in the absence of increased urine albumin excretion or structural abnormalitie s does not CKD. eGFR provides only an estimate of measured GFR within +/- 30% for most patients. As mentioned, nutritional status and muscle mass, among many factors, may lead to inaccuracy in the estimate. Consider ordering the creatinine-c ystatin C panel if better accuracy is needed for clinical decision-maddie ing. eGFR (mL/min/1.73 m2) CKD stage Interpretati on Normal 60-89 Mild decrease 45-59 Mild to moderate decrease 30-44 Moderate to severe decrease 15-29 Severe decrease <15 Kidney failure [facility] Chemistry Hemoglobin A1c 5.3 % 4.0 - 5.6 09/01 N Interpretive Data: Normal: 4.0 - 5.6% Increased Risk: 5.7 - 6.4% Diabetic Range: 6.5% For patients without diabetes, the normal range for the hemoglobin A1c test is between 4% and 5.6%. Hemoglobin A1c levels between 5.7% and 6.4% indicate increased risk of diabetes, and levels of 6.5% or higher indicate diabetes. Because studies have repeatedly shown that csi-wt-looqn ol diabetes results in complication s from the disease, the goal for people with diabetes is a hemoglobin A1c less than 7%. The higher the hemoglobin A1c, the higher the risks of developing complication s related to diabetes. If confirmation is needed, consider recalling the patient and ordering Hemoglobin Electrophore sis. [address] [place] [address] Chemistry eAvg Glucose 105 mg/dL 09/[address] [place] [address] Chemistry Cholesterol Total 195 mg/dL 09/01 N Interpretive Data: According to the [place] [employer]: AGES 0-19: Desirable: < 170 mg/dL Borderline High: 170-199 mg/dL High Blood Cholesterol: >/= 200 mg/dL ADULTS: Desirable < 200 mg/dL Borderline High: 200-239 mg/dL High Blood Cholesterol: >/= 240 mg/dL [address] [place] [address] Chemistry Chol/HDL 4 mg/dL 09/[address] [place] [address] Chemistry LDL 137 mg/dL 100 - 130 09/01 H Interpretive Data: AGES 0-19: Desirable: < 110 mg/dL Borderline High: 110-129 mg/dL High: >/= 130 mg/dL ADULTS: Desirable: <100 mg/dL Near/above optimal: 100-130 mg/dL Borderline High: 131-159 mg/dL High: 160-189 mg/dL Very High: 190 mg/dL [address] [place] [address] Chemistry HDL Cholesterol 52 mg/dL 40 - 59 09/01 N Interpretive Data: HDL (HIGH DENSITY LIPOPROTEIN) : ADULTS: Low: < 40 mg/dL High: >/= 60 mg/dL AGES 0 -19: Low: < 40 mg/dL Borderline Low: 40 - 45 mg/dL Acceptable: > 45 mg/dL [address] [place] [address] Chemistry Triglycerid es 78 mg/dL 7 - 149 09/01 N Interpretive Data: AGES 0-9: Desirable: < 75 mg/dL Borderline High: 75-99 mg/dL High: >/= 100 mg/dL AGES 10-19: Desirable: < 90 mg/dL Borderline High: 90-129 mg/dL High: >/= 130 mg/dL ADULTS: Desirable: < 150 mg/dL Borderline High: 150-199 mg/dL High: >/= 240 mg/dL Very High: >/= 500 mg/dL [address] [place] [address] Chemistry LDL/HDL 3 09/01-[address] [place] [address] Chemistry BUN 20 mg/dL 7 - 20 09/01 N -[address] [place] [address] Chemistry Glucose Lvl 88 mg/dL 74 - 99 09/01 N - [address] [place] [address] Chemistry Albumin 3.70 g/dL 3.50 - 5.20 09/01 N - [address] [place] [address] Chemistry Creatinine Level 0.60 mg/dL 0.57 - 1.11 09/01 N - [address] [place] [address] Chemistry AGAP 8.00 0.00 - 15.00 09/01 N -[address] [place] [address] Chemistry CO2 27 mmol/L 22 - 29 09/01 N -[address] [place] [address] Chemistry Potassium Lvl 4.1 mmol/L 3.5 - 5.1 09/01 N -[address] [place] [address] Chemistry Chloride 106 mmol/L 98 - 107 09/01 N -[address] [place] [address] Chemistry Calcium 9.4 mg/dL 8.4 - 10.2 09/01 N -[address] [place] [address] Chemistry Phosphorus 3.1 mg/dL 2.3 - 4.7 09/01 N -[address] [place] [address] Chemistry Sodium 141 mmol/L 136 - 145 09/01 N -[address] [place] [address] Chemistry BUN/Creat Ratio 33 mg/dL 12 - 20 09/01 H - [address] [place] [address] Chemistry Vitamin D 25 OH 44.9 ng/mL 30.0 - 100.0 05/29 N Interpretive Data: Classificati on of Vitamin D Status: Deficient: <20 ng/mL Insufficient : 20-29 ng/mL Sufficient: 30-100 ng/mL Possible Toxicity: >100 ng/mL This assay is for the quantitative determinatio n of total 25 (OH) vitamin D. It is intended as an aid in the determinatio n of vitamin D sufficiency. Results should always be interpreted in conjunction with the patient's medical history, clinical presentation , and other findings. Testing performed by Electrochemi luminescence . [id number]-U tok[facility] Chemistry TSH 0.588 mIU/L 0.270 - 4.200 05/29 N Interpretive Data: Recommend: TPO/Thyroper oxidase Antibody when TSH result is > 4.2 uIU/mL 5600A[facility]U [facility] Chemistry Cholesterol Total 217 mg/dL 05/29 H Interpretive Data: According to the [place] [employer]: AGES 0-19: Desirable: < 170 mg/dL Borderline High: 170-199 mg/dL High Blood Cholesterol: >/= 200 mg/dL ADULTS: Desirable < 200 mg/dL Borderline High: 200-239 mg/dL High Blood Cholesterol: >/= 240 mg/dL [address] [place] [address] Chemistry Chol/HDL 3 mg/dL 05/[address] [place] [address] Chemistry HDL Cholesterol 71 mg/dL 40 - 59 05/29 H Interpretive Data: HDL (HIGH DENSITY LIPOPROTEIN) : ADULTS: Low: < 40 mg/dL High: >/= 60 mg/dL AGES 0 -19: Low: < 40 mg/dL Borderline Low: 40 - 45 mg/dL Acceptable: > 45 mg/dL [address] [place] [address] Chemistry LDL 173 mg/dL 100 - 130 05/29 H Interpretive Data: AGES 0-19: Desirable: < 110 mg/dL Borderline High: 110-129 mg/dL High: >/= 130 mg/dL ADULTS: Desirable: <100 mg/dL Near/above optimal: 100-130 mg/dL Borderline High: 131-159 mg/dL High: 160-189 mg/dL Very High: 190 mg/dL [address] [place] [address] Chemistry Triglycerid es 94 mg/dL 7 - 149 05/29 N Interpretive Data: AGES 0-9: Desirable: < 75 mg/dL Borderline High: 75-99 mg/dL High: >/= 100 mg/dL AGES 10-19: Desirable: < 90 mg/dL Borderline High: 90-129 mg/dL High: >/= 130 mg/dL ADULTS: Desirable: < 150 mg/dL Borderline High: 150-199 mg/dL High: >/= 240 mg/dL Very High: >/= 500 mg/dL [address] [place] [address] Chemistry LDL/HDL 2 05/[address] [place] [address] Chemistry eAvg Glucose 117 mg/dL 05/[address] [place] [address] Chemistry Hemoglobin A1c 5.7 % 4.0 - 5.6 05/29 H Interpretive Data: Normal: 4.0 - 5.6% Increased Risk: 5.7 - 6.4% Diabetic Range: 6.5% For patients without diabetes, the normal range for the hemoglobin A1c test is between 4% and 5.6%. Hemoglobin A1c levels between 5.7% and 6.4% indicate increased risk of diabetes, and levels of 6.5% or higher indicate diabetes. Because studies have repeatedly shown that soi-hn-yxfux ol diabetes results in complication s from the disease, the goal for people with diabetes is a hemoglobin A1c less than 7%. The higher the hemoglobin A1c, the higher the risks of developing complication s related to diabetes. If confirmation is needed, consider recalling the patient and ordering Hemoglobin Electrophore sis. [address] [place] [address] Vital Signs Combined list of inpatient and outpatient Vital Signs from Department of Defense and Veterans Affairs, ranging from 12 months to all on record, depending upon the facility. Vital Sign Value Date Comments Source Respiratory Rate 16 br/min 05/12/2023 20:09:[address] [place] [address] Peripheral Pulse Rate 90 bpm 05/12/2023 20:09:[address] [place] [address] Temperature Oral 36.8 Rakel 05/12/2023 20:09:[address] [place] [address] Systolic Blood Pressure 114 mm[Hg] 05/12/2023 20:09:[address] [place] [address] Diastolic Blood Pressure 65 mm[Hg] 05/12/2023 20:09:[address] [place] [address] Mean Arterial Pressure, Calc 81 mm[Hg] 05/12/2023 20:09:00 0055[facility] Mean Arterial Pressure, Calc 90 mm[Hg] 01/12/2025 14:27:00 5395Z-Tp-R-[address] [facility] Peripheral Pulse Rate 70 bpm 01/12/2025 14:27:00 4738Q-Ed-F-[facility] Systolic Blood Pressure 120 1 01/12/2025 14:27:00 8171P-Qu-G-[facility] Diastolic Blood Pressure 75 mm[Hg] 01/12/2025 14:27:00 0209G-Ye-Z-[facility] Blood Pressure Manual Automatic 01/12/2025 14:27:00 3780F-Aw-C-[facility] BP Site Left arm 01/12/2025 14:27:00 6130C -Af-C-[facility] Mean Arterial Pressure, Calc 89 mm[Hg] 05/29/2024 18:05:00 0055[facility] Systolic Blood Pressure 118 mm[Hg] 05/29/2024 18:05:00 0055[facility] Diastolic Blood Pressure 74 mm[Hg] 05/29/2024 18:05:00 0055[facility] Temperature Oral 36.8 Rakel 05/29/2024 18:05:00 00[facility] Respiratory Rate 16 br/min 05/29/2024 18:05:00 00[facility] Peripheral Pulse Rate 62 bpm 05/29/2024 18:05:00 00[facility] Temperature Oral 36.8 Rakel 09/15/2024 15:56:00 0055[facility] Blood Pressure Manual Automatic 09/15/2024 15:56:00 0055[facility] BP Site Left arm 09/15/2024 15:56:00 0055C -[facility] Systolic Blood Pressure 119 mm[Hg] 09/15/2024 15:56:00 0055C[facility] Diastolic Blood Pressure 80 mm[Hg] 09/15/2024 15:56:00 0055[facility] Respiratory Rate 14 br/min 09/15/2024 15:56:00 0055[facility] Peripheral Pulse Rate 61 bpm 09/15/2024 15:56:00 0055[facility] Mean Arterial Pressure, Calc 93 mm[Hg] 09/15/2024 15:56:00 0055[facility] Systolic Blood Pressure 118 mm[Hg] 02/07/2025 13:13:00 3813N-Rz-N-[facility] Diastolic Blood Pressure 68 mm[Hg] 02/07/2025 13:13:00 6153N-Mh-O-[facility] BP Site Right arm 02/07/2025 13:13:00 6130C -Af-C-[facility] Mean Arterial Pressure, Calc 85 mm[Hg] 02/07/2025 13:13:00 9644O-Dr-Z-3 [facility] Blood Pressure Manual Automatic 02/07/2025 13:13:00 8826C-Mz-F-[facility] Peripheral Pulse Rate 67 bpm 02/07/2025 13:13:00 4132Q-Qt-T-[facility] Respiratory Rate 14 br/min 02/07/2025 13:13:00 2116S-Sd-V-[facility] Systolic Blood Pressure 125 mm[Hg] 05/19/2023 15:15:00 0055C[facility] Diastolic Blood Pressure 76 mm[Hg] 05/19/2023 15:15:00 0055[facility] Temperature Oral 36.3 Raekl 05/19/2023 15:15:00 00[facility] Respiratory Rate 14 br/min 05/19/2023 15:15:00 0055C[facility] Mean Arterial Pressure, Calc 92 mm[Hg] 05/19/2023 15:15:00 0055[facility] Peripheral Pulse Rate 67 bpm 05/19/2023 15:15:00 0055[facility] Encounters Combined list of: 1) Encounters from Department of Veterans Affairs facilities going backup to the last 18 months, not all VA inpatient encounters are included; 2) Encounters from the Department of Defense facilities going backup to 280 months. Location Location Details Encounter Type Encounter Number Reason For Visit Attending Provider ADM Date DC Date Status Disposition Source 6130[facility] Between Visit [id number] 01/02 Discharge Disposition: Home or Self Care 6130C-A f-C-[facility] [place] [facility]130[facility]-Af- [facility] [id number] Cerebra l infarct ion, unspeci fied,Un specifi ed atrial fibrill ation RYAN PCR 01/05 Discharge Disposition: Home or Self Care 6130C-A f-C-[facility] [place] 6130-Af- C-[facility] [id number] Persona l history of transie nt ischemi c attack (TIA), and cerebra l infarct ion without residua l deficit s RYAN PCR 01/12 Discharge Disposition: Home or Self Care [facility] f-C-[facility] 0055C-375 th [facility] Between Visit [id number] 01/16 Discharge Disposition: Home or Self Care 0055C-3 [facility] [place] [facility]-- C-[facility] [id number] Acute upper respira tory infecti on, unspeci fied,Pe rsonal history of other venous thrombo sis and embolis m RYAN PCR 02/07 Discharge Disposition: Home or Self Care [facility] -C-[facility] Procedures Combined list of: 1) Procedures from Department of Veterans Affairs facilities going back up to thelast 18 months, not all VA non-surgical procedures are included; 2) All procedures from the Department of Defense facilities. Procedure Procedure Type Code Date Perfomer Comments Sourc e Hysteroscopy, diagnostic (separate procedure) Hysteroscopy, diagnostic (separate procedure) 54796 2 with D+C for endometrial polyp-B9 - [facility] female Sterilization 8 essure 5C-375 [facility] colposcopy '80's, no tx. nl paps since [facility] Social History Combined list of available smoking, tobacco, and other social history from Department of Defense and Veterans Affairs facilities. Social History Type Response Date Comment [facility] e Sex Representation Female 09/30/2021 Unknow n Organization Tobacco Never-cigarette user Cigarette use:. Never-other tobacco user (not cigarettes) Other Tobacco use:. Ambulatory Pharmacy Sexual Orientation Ambula tory Pharmacy Gender identity Ambulator y Pharmacy Assessment and Plan Combined list of future care activities from Department of Defense and Veterans Affairs facilities (e.g., assessment and plan notes, appointments, orders, and referrals). Additional future care activities may be listed in the Plan of Care section. Result Assessment and Plan Date Source Assessment and Plan Extracted from:Title : [facility]- F/u Visit Author: RYAN CAVANAUGH MD Date: 02/07/25 1. H istory of embolism Acute, uncontrolled. 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 Discharged on eliquis and referred previously to cardiology and neurology for holter as well as further recs on e liquis duration. - Cont. e liquis 5mg b id - F/u holter and cardiology recs. P ending follow-up appt. w ith Dr. Coffman - F/u neuro recs, has p ending appt in J une - Advised to follow-up in late Kirsten or May after specialty visit to follow-up recs 2. U RI - Upper respiratory infection Signs and symptoms consistent with a resolving viral URI, taking adequate PO with no signs of dehydration and no signs of respiratory distress on exam. Discussed complications (and return precautions for WOB/dyspnea/true lethargy/dehydration) and comorbidities (s/sx of AOM, sinusitis, PNA). No e/o such complications/comorbidities on exam (TMs and lung garcía clear, no WOB, MMM). - continue supportive care including encouraging fluid intake - continue motrin/Tylenol as needed for fever - pt can return to school/activities/childcare when afebrile for 24 hours - return to clinic if symptoms not improving/worsening, concern for dehydration, fevers after 4-5 days of illness, or concern for any new symptoms - Seek emergency care for dehydration, WOB Capt Ryan Cavanaugh MD Hide Examiner, PGY-2 [facility], [place], [place] Addendum by GISEL PICKARD MD on February 07, 2025 14:11:46 CDT I certify that I was present for case discussion in the Family Medicine preceptor room at the time of this encounter. I have reviewed the note and agree with the findings, assessment, and plan except as I have documented below. Follow up as listed. All labs/imaging/consults to be followed by the ordering provider. Maj Lenore () Family Medicine Physician [facility] [place] Extracted from:Title: [facility]- ER F/u Author: RYAN CAVANAUGH MD Date: 01/12/25 History of transient ischemic attack erinn Carmen. Admitted to [facility] -01/02/25 for stroke like symptoms, found to have a R [employer] ME[employer]UREMENTS ENGINEER thrombus on CTA head and neck with CT head and MRI head showing unremarkable findings. No arrythmia noted on stay. Patient transitioned from a heparin IV to eliquis 5 mg bid and started on lipitor. No MSK or neurological deficits on exam today. - Cont. lipitor 8 0mg qd, eliquis 5mg bid - Wait for formal hospital notes to evaluate for duration of eliquis at this time - Order referral to cardiology and neurology to evalaute need for holter a s well as etiology for the R [employer] MEASURE[employer] ENGINEER clot. - Follow-up in 1 month a nd hopefully follow-up formal paperwork and evaluate progress Ordered: Referral Request 2.0 - DoD Referral Request 2.0 - DoD Capt Ryan Cavanaugh MD Hide Examiner, PGY-2 [facility], [place] [facility] [place] Addendum by SAW MARQUES MD on February 05, 2025 16:32:50 CDT I was present and available in the family medicine clinic to discuss the patient's care during the time of the appointment. I agree with the resident's assessment and plan as documented. Saw Marques MD, Faculty, [employer], VOL, Attending Physician Extracted from:Title: [facility]- Referrals Author: RYAN CAVANAUGH MD Date: 01/05/25 1. C [facility] - Cerebrovascular accident A cute, Unclear. Patient reportedly visiting family in [facility] [place] and developed stroke like symptoms, t reated at [facility], heading home Wednesday. - Stressed bringing paperwork to setup referrals and document her record in clinic, also advised can upload to elba obriense v/u and aware - Patient not on aspirin or plavix at this time. Stressed getting paperwork to determine current medical diagnosis - Appt for , stressed making sooner appt. b y calling wednesday to setup earlier appt. - Can discuss need for further referrals t o cardiology, neuro, possibly PT/OT then 2. A trial fibrillation A cute, controlled. New-onset, unknown etiology, hard to go into further detail without paperwork. Patient reportedly on eliquis. - Advise to bring paperwork in - Setup referrals based on paperwork a nd in-person appointment Capt Ryan Cavanaugh MD Hide Examiner, PGY-2 [facility], [place], [place] Addendum by RACH CARLOS MD, Family Medicine on January 08, 2025 18:00:47 TOY STUFFER I was present and available in the family medicine clinic during the patient's appointment.? The case was discussed with me and I agree with the assessment and plan as documented. ? HLF Extracted from:Title: LINOTYPE WORKER/Virtual, right ovarian cyst stable Author: LIZETH DANIELS NP Date: 10/24/24 1. O ther ovarian cyst, right side r epeat US 07/23; WWE due 06/22, will order f/u us at that time Ordered: US Pelvis w/ Transvag non-OB Complete 2. O ther specified counseling h as repeat labs ordered for 12/23 Ordered: cholecalciferol(Vitamin D3 125 mcg (5000 intl units) oral capsule), 1 cap(s), Oral, Daily, with food, # 90 cap(s), 2 total refill(s), Maintenance, 1 cap(s) Oral Daily,Instr:with food, Pharmacy: [facility] [Not filled] 3. O ther signs and symptoms in breast l ast MRI [id number], nl mammo 07/22; MRI due 2/25; discussed change from [employer] t [facility]; to contact clinic just after new yr and will place referral for MRI to have scheduled for [id number] or later; pt V/U Pt questions addressed and i nstructions were provided to the patient. Lizeth Daniels [facility] DAMION Reece [facility] Extracted from:Title: [facility] annual Author: DERIC WHITE DO Date: 09/15/24 1. W ell adult Patient is a 5 0 YearsFemale w ith history of o steoporosis p resenting today for annual exam. Discussed most recent lab work, medications and prev med as documented. Patient currently feels well, denies any acute complaints. Does note o ccasional joint stiffness and aching (Discussed below). Otherwise, ROS unremarkable. Physical exam is unremarkable. Patient is due for the following Preventative Medicine services, for which, patient has been ordered or referred as noted: Otherwise, patient's screenings and vaccinations are UTD as documented. Patient with A SCVD r isk <5%. May continue Freer 3, b ut no statin indicated at this time. Discussed d/c'ing ASA as it is no longer recommended for her, but she d eclined. would like to continue. Patient may follow up in 6-12 months for continued PCM care. A total of 40 minutes was spent on this visit reviewing previous notes, counseling the patient on the listed diagnoses, reviewing/ordering tests, adjusting medications, and documenting the findings in this note. 2. O steoarthritis HPI and exam consistent with likely OA. Discussed tx to include PRN ibuprofen at this time. Declines any other Rx or eval. Patient encouraged to return to clinic, present to [facility] or ER for persistent worsening or development of other concerning symptoms. Patient cites understanding and agrees with plan of care. 3. L ocalized osteoporosis [Lequesne] Continue Current management and eval with [facility]. Ramon White DO, MEd , , [facility] [[email or web address]] Internal Medicine, [place] [employer] Extracted from:Title: LINOTYPE WORKER/Virtual, right ovarian cyst, fibroids Author: LIZETH DANIELS NP Date: 07/18/24 1. O ther ovarian cyst, right side to contact radiology 10/22 to schedule f/u US and virtual appt with me 2-3days after US appt Ordered: US Pelvis w/ Transvag non-OB Complete 2. L eiomyoma of uterus, unspecified Pt questions addressed and instructions were provided to the patient. Lizeth Daniels [facility] Health TUR[employer]INE MEASUREMENTS ENGINEER [facility] Extracted from:Title: LINOTYPE WORKER/WWE, osteoporosis Author: LIZETH DANIELS NP Date: 05/29/24 1. E ncounter for gynecological examination (general) (routine) with abnormal findings Over 50% of m inute visit spent face to face with patient on education, reviewing history, and developing plan of care. Continue monthly BSE and yearly well woman exams. Return to clinic in 1 year. Exercise: 30 minutes of moderate exercise 5 days a week including cardio and strength training is recommended for a healthy lifestyle. T his should be in addition to your normal daily work/routine. If you are trying to lose weight more exercise along with a healthy diet is recommended. Supplements/Vitamins: If you are not following, or able to follow a well-balanced diet indicated below due to personal or medical reasons, it is recommended you take a m ultivitamin. This is especially important if you are trying to get as w omen need additional folic acid before and during (400-1000 micrograms per day). Daily calcium intake should be around 1200 mg per day w hich is 120% of the recommended daily allowance if looking at food labels.? W e recommend V itamin D3 2,000-3,000 international units a day i f you have not already been identified with an insufficiency or deficiency. Nutrition: A healthy diet with protein, vegetables, fruits, grains, and dairy is advised. More information including example serving sizes can be found at h ttps://www.choosemyplate.gov/.&# 160; T hese amounts are appropriate for individuals who get less than 30 minutes per day of moderate physical activity, beyond normal daily activities. Those who are more physically active may be able to consume more while staying within calorie needs. Ordered: Hemoglobin A1c TSH w/ Reflex FT4 and Total T3 MG Mammo Prince Screening Bilateral 2. E ncounter for screening for malignant neoplasm of colon Ordered: Referral Request 2.0 - DoD 3. 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, vit d, wt bearing exercise; con't fosamax as prescribed and f/u after bone density Ordered: calcium carbonate(calcium (as carbonate) 500 mg oral tablet), See Instructions, t1 tab po bid, # 180 tab(s), 3 total refill(s), Maintenance, t1 tab po bid, Pharmacy: [facility] [Federal Rx: #180 last filled 05/29/24] alendronate(Fosamax 70 mg oral tablet), 1 tab(s), Oral, every week, with 6 to 8 ounces plain water, at least 30 minutes before first food, beverage, or medication of the day, # 12 tab(s), 3 total refill(s), Maintenance, 1 tab(s) Oral every week,Instr:with 6 to 8 ounces plain water, at least... Vitamin D 25 Hydroxy Level 4. O ther signs and symptoms in breast calculated lifetime risk 28.3%; last MRI 01/22; mammo to be completed 07/22; contact clinic 11/21 for MRI referral to be completed 01/23 5. O ther specified abnormal findings of blood chemistry low fat/low chol diet, no more than 25% total calories from fat, Ordered: Lipid Panel CT Bone Density Axial Skeleton 6. O ther specified counseling discussed RSV vaccine; f/u with immunizations to update Orders: aspirin(aspirin 81 mg oral delayed release tablet), 1 tab(s), Oral, Daily, # 90 tab(s), 0 total refill(s), Maintenance, 1 tab(s) Oral Daily, Pharmacy: [facility] [Last filled 05/29/24] Pt questions addressed and written discharge instructions were provided to the patient. Lizeth Daniels [facility] DAMION Reece [facility] [place] Extracted from:Title: WWE Author: LIZETH DANIELS NP Date: 05/19/23 1. E ncounter for gynecological examination (general) (routine) with abnormal findings Ordered: aspirin(Aspirin Low Dose 81 mg oral delayed release tablet), 1 tab(s), Oral, Daily, # 90 tab(s), 3 total refill(s), Maintenance, 1 tab(s) Oral Daily, Pharmacy: [facility] [Federal Rx: #90 last filled 05/19/23] MG Mammo Prince Screening Bilateral 2. L ocalized osteoporosis [Lequesne] stressed ca, vit D, wt bearing exercise; see meds below; repeat bone density next yr 3. O ther specified abnormal findings of blood chemistry low fat/low chol diet, no more than 25% total calories from fat, Orders: alendronate(alendronate 70 mg oral tablet), TAKE ONE TABLET BY MOUTH ONCE A WEEK DIRECTED, Oral, every week, # 12 EA, 4 total refill(s), Acute, TAKE ONE TABLET BY MOUTH ONCE A WEEK DIRECTED Oral every week, Pharmacy: [facility] [Federal Rx: #12 last filled 05/19/23] calcium carbonate(calcium (as carbonate) 600 mg oral tablet), 1 tab(s), Oral, BID, 180 tab(s), # 180 tab(s), 3 total refill(s), Maintenance, 1 tab(s) Oral BID,Instr:180 tab(s), Pharmacy: [facility] [Federal Rx: #180 last filled 05/19/23] multivitamin(Multivitamin oral tablet), 1 tab(s), Oral, Daily, # 90 tab(s), 3 total refill(s), Maintenance, 1 tab(s) Oral Daily, Pharmacy: [facility] [Not filled] Lizeth Martinez [facility] DAMION Reece [facility] Extracted from:Title: 0055 IM CL Forehead Nodule [...] encouraged to return to clinic, present to [facility] or ER for persistent worsening or development of other concerning symptoms. Patient cites understanding and agrees with plan of care. A total of 30 minutes was spent on this visit reviewing previous notes, counseling the patient on the listed diagnoses, reviewing/ordering tests, adjusting medications, and documenting the findings in this note. Ramon White DO, [facility], [facility] [[email or web address]] Internal Medicine, [place] [facility] 02/12/2025 [id number][id number] and Plan Extracted from:Title : [facility]- F/u Visit Author: RYAN CAVANAUGH MD Date: 02/07/25 1. H istory of embolism Acute, uncontrolled. 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 Discharged on eliquis and referred previously to cardiology and neurology for holter as well as further recs on e liquis duration. - Cont. e liquis 5mg b id - F/u holter and cardiology recs. P ending follow-up appt. w marla Coffman - F/u neuro recs, has p ending appt in J une - Advised to follow-up in late April or May after specialty visit to follow-up recs 2. U RI - Upper respiratory infection Signs and symptoms consistent with a resolving viral URI, taking adequate PO with no signs of dehydration and no signs of respiratory distress on exam. Discussed complications (and return precautions for WOB/dyspnea/true lethargy/dehydration) and comorbidities (s/sx of AOM, sinusitis, PNA). No e/o such complications/comorbidities on exam (TMs and lung garcía clear, no WOB, MMM). - continue supportive care including encouraging fluid intake - continue motrin/Tylenol as needed for fever - pt can return to school/activities/childcare when afebrile for 24 hours - return to clinic if symptoms not improving/worsening, concern for dehydration, fevers after 4-5 days of illness, or concern for any new symptoms - Seek emergency care for dehydration, WOB Capt Ryan Cavanaugh MD Hide Examiner, PGY-2 [employer] [employer] [facility], OS [facility] [place] Addendum by GISEL PICKARD MD on February 07, 2025 14:11:46 CDT I certify that I was present for case discussion in the Family Medicine preceptor room at the time of this encounter. I have reviewed the note and agree with the findings, assessment, and plan except as I have documented below. Follow up as listed. All labs/imaging/consults to be followed by the ordering provider. Maj Lenore () Family Medicine Physician [facility] RITA Natarajan Extracted from:Title: [facility]- ER F/u Author: RYAN CAVANAUGH MD Date: 01/12/25 History of transient ischemic attack A cute, uncontrolled. Admitted to 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 No arrythmia noted on stay. Patient transitioned from a heparin IV to eliquis 5 mg bid and started on lipitor. No MSK or neurological deficits on exam today. - Cont. lipitor 8 0mg qd, eliquis 5mg bid - Wait for formal hospital notes to evaluate for duration of eliquis at this time - Order referral to cardiology and neurology to evalaute need for holter a s well as etiology for the R TURBINE MEASUREMENTS ENGINEER clot. - Follow-up in 1 month a nd hopefully follow-up formal paperwork and evaluate progress Ordered: Referral Request 2.0 - DoD Referral Request 2.0 - DoD Capt Ryan Cavanaugh MD Hide Examiner, PGY-2 [facility], [place], [place] Addendum by SAW MARQUES MD on February 05, 2025 16:32:50 CDT I was present and available in the family medicine clinic to discuss the patient's care during the time of the appointment. I agree with the resident's assessment and plan as documented. Saw Marques MD, Faculty, [facility], Attending Physician Extracted from:Title: [facility]- Referrals Author: RYAN CAVANAUGH MD Date: 01/05/25 1. C [facility] - Cerebrovascular accident A cute, Unclear. Patient reportedly visiting family in [facility] [place] and developed stroke like symptoms, t reated at [facility], heading home Wednesday. - Stressed bringing paperwork to setup referrals and document her record in clinic, also advised can upload to [place] v/u and aware - Patient not on aspirin or plavix at this time. Stressed getting paperwork to determine current medical diagnosis - Appt for , stressed making sooner appt. b y calling wednesday to setup earlier appt. - Can discuss need for further referrals t o cardiology, neuro, possibly PT/OT then 2. A trial fibrillation A cute, controlled. New-onset, unknown etiology, hard to go into further detail without paperwork. Patient reportedly on eliquis. - Advise to bring paperwork in - Setup referrals based on paperwork a nd in-person appointment Capt Ryan Cavanaugh MD Hide Examiner, PGY-2 [facility], [facility] [place], [place] Addendum by RACH CARLOS MD, Family Medicine on January 08, 2025 18:00:47 TOY STUFFER I was present and available in the family medicine clinic during the patient's appointment.? The case was discussed with me and I agree with the assessment and plan as documented. ? HLF Extracted from:Title: LINOTYPE WORKER/Virtual, right ovarian cyst stable Author: LIZETH DANIELS TURBINE MEASUREMENTS ENGINEER Date: 10/24/24 1. O ther ovarian cyst, right side r epeat US 07/23; WWE due 06/22, will order f/u us at that time Ordered: US Pelvis w/ Transvag non-OB Complete 2. O ther specified counseling h as repeat labs ordered for 12/23 Ordered: cholecalciferol(Vitamin D3 125 mcg (5000 intl units) oral capsule), 1 cap(s), Oral, Daily, with food, # 90 cap(s), 2 total refill(s), Maintenance, 1 cap(s) Oral Daily,Instr:with food, Pharmacy: [facility] [Not filled] 3. O ther signs and symptoms in breast l ast MRI [id number], nl mammo 07/22; MRI due 01/23; discussed change from [employer] t [facility]; to contact clinic just after new yr and will place referral for MRI to have scheduled for [id number] or later; pt V/U Pt questions addressed and i nstructions were provided to the patient. Lizeth Daniels [facility] TURBINE MEASUREMENTS ENGINEER [facility] [place] Extracted from:Title: 0055 IMCL annual Author: DERIC WHITE DO Date: 09/15/24 1. W ell adult Patient is a [age] YearsFemale w ith history of o steoporosis p resenting today for annual exam. Discussed most recent lab work, medications and prev med as documented. Patient currently feels well, denies any acute complaints. Does note o ccasional joint stiffness and aching (Discussed below). Otherwise, ROS unremarkable. Physical exam is unremarkable. Patient is due for the following Preventative Medicine services, for which, patient has been ordered or referred as noted: Otherwise, patient's screenings and vaccinations are UTD as documented. Patient with A SCVD r isk <5%. May continue Freer 3, b ut no statin indicated at this time. Discussed d/c'ing ASA as it is no longer recommended for her, but she d eclined. would like to continue. Patient may follow up in 6-12 months for continued PCM care. A total of 40 minutes was spent on this visit reviewing previous notes, counseling the patient on the listed diagnoses, reviewing/ordering tests, adjusting medications, and documenting the findings in this note. 2. O steoarthritis HPI and exam consistent with likely OA. Discussed tx to include PRN ibuprofen at this time. Declines any other Rx or eval. Patient encouraged to return to clinic, present to UCC or ER for persistent worsening or development of other concerning symptoms. Patient cites understanding and agrees with plan of care. 3. L ocalized osteoporosis [Lequesne] Continue Current management and eval with [facility]. Ramon White DO, [facility], , [facility] [[email or web address]] Internal Medicine, [place] [facility] Extracted from:Title: LINOTYPE WORKER/Virtual, right ovarian cyst, fibroids Author: LIZTEH DANIELS NP Date: 07/18/24 1. O ther ovarian cyst, right side to contact radiology 10/22 to schedule f/u US and virtual appt with me 2-3days after US appt Ordered: US Pelvis w/ Transvag non-OB Complete 2. L eiomyoma of uterus, unspecified Pt questions addressed and instructions were provided to the patient. Lizeth Daniels [facility] DAMION Reece [facility] [place] Extracted from:Title: LINOTYPE WORKER/WWE, osteoporosis Author: LIZETH DANIELS NP Date: 05/29/24 1. E ncounter for gynecological examination (general) (routine) with abnormal findings Over 50% of m inute visit spent face to face with patient on education, reviewing history, and developing plan of care. Continue monthly BSE and yearly well woman exams. Return to clinic in 1 year. Exercise: 30 minutes of moderate exercise 5 days a week including cardio and strength training is recommended for a healthy lifestyle. T his should be in addition to your normal daily work/routine. If you are trying to lose weight more exercise along with a healthy diet is recommended. Supplements/Vitamins: If you are not following, or able to follow a well-balanced diet indicated below due to personal or medical reasons, it is recommended you take a m ultivitamin. This is especially important if you are trying to get as w sarbjit need additional folic acid before and during (400-1000 micrograms per day). Daily calcium intake should be around 1200 mg per day w hich is 120% of the recommended daily allowance if looking at food labels.? W e recommend V itamin D3 2,000-3,000 international units a day i f you have not already been identified with an insufficiency or deficiency. Nutrition: A healthy diet with protein, vegetables, fruits, grains, and dairy is advised. More information including example serving sizes can be found at h ttps://www.K[employer] Mobimyplate.gov/.&# 160; T hese amounts are appropriate for individuals who get less than 30 minutes per day of moderate physical activity, beyond normal daily activities. Those who are more physically active may be able to consume more while staying within calorie needs. Ordered: Hemoglobin A1c TSH w/ Reflex FT4 and Total T3 MG Mammo Prince Screening Bilateral 2. E ncounter for screening for malignant neoplasm of colon Ordered: Referral Request 2.0 - DoD 3. 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, vit d, wt bearing exercise; con't fosamax as prescribed and f/u after bone density Ordered: calcium carbonate(calcium (as carbonate) 500 mg oral tablet), See Instructions, t1 tab po bid, # 180 tab(s), 3 total refill(s), Maintenance, t1 tab po bid, Pharmacy: [facility] [Federal Rx: #180 last filled 05/29/24] alendronate(Fosamax 70 mg oral tablet), 1 tab(s), Oral, every week, with 6 to 8 ounces plain water, at least 30 minutes before first food, beverage, or medication of the day, # 12 tab(s), 3 total refill(s), Maintenance, 1 tab(s) Oral every week,Instr:with 6 to 8 ounces plain water, at least... Vitamin D 25 Hydroxy Level 4. O ther signs and symptoms in breast calculated lifetime risk 28.3%; last MRI 01/22; mammo to be completed 07/22; contact clinic 11/21 for MRI referral to be completed 01/23 5. O ther specified abnormal findings of blood chemistry low fat/low chol diet, no more than 25% total calories from fat, Ordered: Lipid Panel CT Bone Density Axial Skeleton 6. O ther specified counseling discussed RSV vaccine; f/u with immunizations to update Orders: aspirin(aspirin 81 mg oral delayed release tablet), 1 tab(s), Oral, Daily, # 90 tab(s), 0 total refill(s), Maintenance, 1 tab(s) Oral Daily, Pharmacy: [facility] [Last filled 05/29/24] Pt questions addressed and written discharge instructions were provided to the patient. Lizeth Daniels [facility] DAMION Reece [facility] Extracted from:Title: WWE Author: LIZETH DANIELS NP Date: 05/19/23 1. E ncounter for gynecological examination (general) (routine) with abnormal findings Ordered: aspirin(Aspirin Low Dose 81 mg oral delayed release tablet), 1 tab(s), Oral, Daily, # 90 tab(s), 3 total refill(s), Maintenance, 1 tab(s) Oral Daily, Pharmacy: [facility] [Federal Rx: #90 last filled 05/19/23] MG Mammo Prince Screening Bilateral 2. L ocalized osteoporosis [Lequesne] stressed ca, vit D, wt bearing exercise; see meds below; repeat bone density next yr 3. O ther specified abnormal findings of blood chemistry low fat/low chol diet, no more than 25% total calories from fat, Orders: alendronate(alendronate 70 mg oral tablet), TAKE ONE TABLET BY MOUTH ONCE A WEEK DIRECTED, Oral, every week, # 12 EA, 4 total refill(s), Acute, TAKE ONE TABLET BY MOUTH ONCE A WEEK DIRECTED Oral every week, Pharmacy: [facility] [Federal Rx: #12 last filled 05/19/23] calcium carbonate(calcium (as carbonate) 600 mg oral tablet), 1 tab(s), Oral, BID, 180 tab(s), # 180 tab(s), 3 total refill(s), Maintenance, 1 tab(s) Oral BID,Instr:180 tab(s), Pharmacy: [facility] [Federal Rx: #180 last filled 05/19/23] multivitamin(Multivitamin oral tablet), 1 tab(s), Oral, Daily, # 90 tab(s), 3 total refill(s), Maintenance, 1 tab(s) Oral Daily, Pharmacy: [facility] [Not filled] Lizeth Daniels [facility] DAMION Reece [facility] [place] Extracted from:Title: 0055 IM CL Forehead Nodule [...] understanding and agrees with plan of care. A total of 30 minutes was spent on this visit reviewing previous notes, counseling the patient on the listed diagnoses, reviewing/ordering tests, adjusting medications, and documenting the findings in this note. Ramon White DO, Pending sale to [facility], , [facility] [[email or web address]] Internal Medicine, [employer] 02/12/2025 [id number] Functional Status Combined list of recent functional and cognitive assessments recorded at Department of Defense and Veterans Affairs (VA).VA Functional Prather Measurement (FIM) Scale: 1 = Total Assistance (Subject = 0% +), 2 = Maximal Assistance (Subject = 25% +), 3 = Moderate Assistance (Subject = 50% +), 4 = Minimal Assistance (Subject = 75% +), 5 = Supervision, 6 = Modified Prather (Device), 7 = Complete Prather (Timely, Safely). Assessment Date/Time Source Assessment Type Assessment Skill Assessment Score Assessment Details No data available for this section
--- OUTSIDE RECORDS SUMMARY | 2025-02-12 16:21 | XMS_ITS | Clinical Summary ---
Author Organization [facility] Address [address] [place] [address] Care Team Providers Care Machine Accountant Name Role Phone Ryan Cavanaugh MD Primary Care Provider [phone] Allergies No known active allergies Medications Vitamin D3 125 mcg Tab Take 1 tablet (5,000 Units total) by mouth daily. Active Multiple Vitamins-Minera ls (ONCOVITE) Tab Take 1 tablet by mouth daily. Active atorvastatin (LIPITOR) 80 MG tablet Take 1 tablet (80 mg total) by mouth nightly at bedtime. 5 Active alendronate (FOSAMAX) 70 MG tablet Take 1 tablet (70 mg total) by mouth every 7 days. 5 Active oyster shell calcium 500 mg, elemental, (OSCAL) 500 MG tablet Take 1 tablet (500 mg total) by mouth 2 (two) times daily. 4 Active ELIQUIS 5 MG tablet Take 1 tablet (5 mg total) by mouth 2 (two) times daily. 5 Active famciclovir (FAMVIR) 500 MG tablet TAKE 3 TABLETS BY MOUTH AT FIRST HINT OF SYMPTOMS THEN TWO TABS BY MOUTH EVERY 12 HOURS AFTER INITIAL DOSE 4 Active [place]-3 Fatty Acids (FISH OIL) 1200 MG Cap Take by mouth 3 (three) times daily. Active Lysine HCl 500 MG Tab Take by mouth daily. Active multi vitamin/mineral s (CENTRUM ADULTS) tablet Take 1 tablet by mouth daily. Active apixaban (ELIQUIS) 5 MG tablet Take 1 tablet (5 mg total) by mouth 2 (two) times daily. 5 02/02/20 25 atorvastatin (LIPITOR) 80 MG tablet Take 1 tablet (80 mg total) by mouth daily. 5 02/02/20 25 Active Problems Problem Noted Date Diagnosed Date Cerebral infarction ([facility]) 01/03/2025 Unspecified atrial fibrillation ([facility] ) 01/03/2025 Encounters Date Type Department Care Team Description 02/09/2025 12:30 PM CDT Telephone [facility], [address] [address] Jameson Coffman MD Holter Monitor 02/02/2025 12:15 PM PRESSURE TESTER OPERATOR Office Visit [facility] [address] [phone] Jameson Coffman MD Consult; Neurologic Problem; Arrhythmia 02/02/2025 Telephone [facility], [place] [address] [place] [address] Jameson Coffman MD Schedule Test 02/02/2025 Travel 02/01/2025 Orders Only [facility], [address] [address] Jyoti [place]enes, [place] 01/19/2025 8:00 AM PRESSURE TESTER OPERATOR - 01/19/2025 11:59 PM PRESSURE TESTER OPERATOR Hospital Encounter [facility] MRI [facility] [place] [address] Lizeth Daniels, [place] Discharge Disposition: Home or Self Care (Routine Discharge) 01/19/2025 Travel 12/28/2024 Scan [facility] INFO SRVCS Scanned, [facility] from Last 3 Months Immunizations Name Administration Dates Next Due Arexvy Respiratory Syncytial Virus (RSV, adjuvanted) 0.5 mL, PF 09/02/2024 FLUCELVAX (ccIIV3, TRIVALENT, 0.5mL) 09/02/2024 Hepatitis B (Generic: Adult) 09/01/2006,07/15/20 06 Influenza (FluMist) 09/30/2009 Influenza (Generic) 10/07/2017, 5,09/21/2014,2011,10/08/2011,11/06/2008,11/09/2006,1 12/19/2004,09/20/2003,10/04/2002 Influenza Adult (Generic) 09/12/2023,,09/12/2021,2019,08/21/2019,09/04/2018,09/23/2016 Shingrix 04/14/2019,12/14/2018 Td (TDVAX) 10/22/1999 Tdap (Generic) 10/23/2022,09/01/2012 Family History Relation Status Comments Brother Alive Father Mother Alive Sister Alive Social History Tobacco Use Types Packs/Day Years Used Date Smoking Tobacco: Never Smokeless Tobacco: Never Tobacco Cessation:Counseling Given: Not Answered Alcohol Use Standard Drinks/Week Comments Not Currently 0 (1 standard drink = 0.6 oz pur e alcohol) Comments Unknown Sex and Gender Information Value Date Recorded Sex Assigned at Female 01/16/2025 10:18 AM PRESSURE TESTER OPERATOR Legal Sex Female 8:27 PM CDT Gender Identity Not on file Sexual Orientation Not on file Last Filed Vital Signs Vital Sign Reading Time Taken Comments Blood Pressure 130/80 02/02/2025 12:16 PM PRESSURE TESTER OPERATOR Pulse 75 02/02/2025 12:16 PM PRESSURE TESTER OPERATOR Temperature - - Respiratory Rate - - Oxygen Saturation - - Inhaled Oxygen Concentration - - Weight 67.1 kg (148 lb) 02/02/2025 12:16 PM PRESSURE TESTER OPERATOR Height 165.1 cm (5' 5 ) 02/02/2025 12:16 PM PRESSURE TESTER OPERATOR Body Mass Index 24.63 02/02/2025 12:16 PM PRESSURE TESTER OPERATOR Plan of Treatment Upcoming Encounters Date Type Department Care Team (Late st Contact Info) Description 03/30/2025 9:30 AM CDT Office Visit [facility] [address] [place] [address] Caro Bashir, KAREN [address] [facility], [address] [place] [address] 05/01/2025 11:40 AM CDT Office Visit [facility] - [address], [address] [place] [phone] Jonelle Wolfe MD [address] [place] [address] Health Maintenance Due Date Last Done Comments Cervical Cancer Screening Pap Smear (Age 30 to 64) Every 3 Years 1964 Colorectal Cancer Screening Colonoscopy (10 Years) 1964 Annual Physical 1967 Hepatitis C 1982 Cervical Cancer Screening Pap with HPV Testing (Age 30 to 64) Every 5 Years 1994 Cervical Cancer Screening with HPV 1994 Mammogram Screening 06/11/2022 06/11/2020 COVID-19 Vaccine ( season) 2024 09/05/2023, 09/24/2022, 11/08/2021, Additional history exists PHQ-2 (Physician [place]) 11/29/2024 DTaP, Tdap and Td Vaccines (3 - Td or Tdap) 10/23/2032 10/23/2022, 09/01/2012, 10/22/1999 Zoster Vaccines Completed 04/14/2019, 12/14/2018 Influenza Adult Completed 09/02/2024, 08/29, 09/16/2022, Additional history exists RSV Immunization or 60+ Years Completed 09/02/2024 Meningococcal B Vaccine Aged Out No l [...] Procedure Name Priority Date/Time Associated Diagnosis Comments MRI BREAST ABDI WWO CON BIRAD Routine 01/19/2025 9:29 AM PRESSURE TESTER OPERATOR Other signs and symptoms in breast from Last 3 Months Results * MRI BREAST ABDI WWO CON BIRAD (01/19/2025 9:29 AM PRESSURE TESTER OPERATOR) Anatomical Region Laterality Modality Breast Bilateral Magnetic Resonan ce 01/19/2025 3:37 PM PRESSURE TESTER OPERATOR Impressions 01/19/2025 3:40 PM PRESSURE TESTER OPERATOR IMPRESSION: 1. Negative study. No breast MRI evidence to suggest presence of invasive malignancy within either breast. Recommendation: 1: Screening mammogram bilateral in June, 2. Breast MRI bilateral in 12 months. Return for Routine Follow-Up: Yes Assessment: BI-RADS 2 Ordered By: LIZETH DANIELS Interpreted By: Mike Mix MD, 01/19/2025 3:37 PM Narrative 01/19/2025 3:40 PM PRESSURE TESTER OPERATOR [address] [address] Examination: MRI breast bilateral with and without contrast Exam Date: 01/19/2025 8:26 AM Clinical history: Family history of breast cancer, heterogeneous glandular tissue. Supplemental screening. Comparison: Breast MRI 01/17/2024 MRI technique: Axial T1, T2 gradient echo and STIR images of the breasts were obtained along with axial 3-D fat suppressed T1 gradient echo volume acquisition. Following intravenous injection of 0.1 mmol/kilogram gadolinium contrast, the axial T1 gradient-echo fat-suppressed sequence was repeated 5 times using rapid dynamic technique. Further delayed axial T1 sequence was also obtained. The precontrast axial T1 sequence was then electronically subtracted from the post contrast axial T1 sequences in order to improve background suppression. The study was interpreted with the assistance of a computer aided detection system. Findings: Images demonstrate heterogeneous glandular tissue in both breasts similar to previous study. No significant breast cysts are demonstrated. No significant abnormal enlarged axillary lymph nodes are demonstrated. Following intravenous injection of gadolinium contrast there is a 5 mm oval enhancing mass in the posterior lower outer right breast. This lesion demonstrates high T2 signal with minimal low-level enhancement unchanged from previous study and felt to be likely benign in etiology. No malignant appearing enhancement is identified within either breast. Lizeth Daniels NP MRI Final Re sult from Last 3 Months Insurance Care Teams Machine Accountant Relationship Specialty Start Date End Date Ryan Cavanaugh MD 3 [facility], [address] [address] PCP - General FAMILY PRACTICE 12/30/24
--- OUTSIDE RECORDS SUMMARY | 2025-02-12 16:21 | XMS_ITS | Clinical Summary ---
Author Organization [facility] [address] [place] [id number] Care Team Providers Care English Instructor Name Role Phone Kailash Morse MD Unavailable Lizeth Daniels NP Primary Care Provider +1- [phone] Allergies No known active allergies Medications lysine [...] oral Frequency: BID Duration: Active vit D3-vit K-uqxdopdjp-vta s [id number] ayii-tut-ju-mg tablet Take by mouth Active omega 9-pwm-oze-fish oil 1,000 mg (120 mg-180 mg) capsule Active mvi, adult no.2 without vit K 3,300 unit-200 unit/10 mL solution Infuse into a venous catheter Active calcium yrhk-K1-iwyclnn um asia 133 mg calcium -133 unit-67 [...] Type Department Care Team Description 11/23/2024 Telephone [facility] [address] [address] Kailash Morse MD Test Results from Last 3 Months Surgical History Surgery [...] on file Legal Sex Female 1:16 AM DISPATCHER [employer] Gender Identity Not on file Sexual Orientation [...] exists Depression Screening 07/19/2025 07/19/2024, 09/09/2021, 09/07/2019 Hepatitis B Screening Completed 09/01/2006, 006 Zoster Vaccine Completed 04/14/2019, 12/14/2018 Pneumococcal vaccine <65 Aged Out No longer eligible based on patient's age to complete this topic Procedures Procedure Name Priority Date/Time Associated Diagnosis Comments SCREENING MAMMOGRAM BILATERAL W PRINCE 06/11/2020 6:57 AM CDT from Last 3 Months or Most Recently Relevant to Health Maintenance Results * Screening Mammogram Bilateral W Prince (06/11/2020 6:57 AM CDT) Anatomical Region Laterality Modality Breast Bilateral Mammography 06/11/2020 7:23 AM CDT Narrative 06/18/2020 1:24 PM CDT Patient Name: ZE DE LA FUENTE Betty Ordering Dr: Lizeth Daniels CNP, D.O.B: 1965 Exam Date: 06/11/20 0657 Age: 55 Sex: Female MR#: [id number] Loc: RADIOLOGY REPORT Order #[id number] [facility] Aimee Bilat Screening 3D Signed - MG BILATERAL DIGITAL SCREENING MAMMOGRAM 3D/2D WITH MEDIOLATERAL OBLIQUE CRANIOCAUDAL: 06/11/2020 The study was acquired using full field digital technology and interpreted from soft copy. 2D digital mammographic views, as well as 3D digital tomosynthesis were performed in the CC and MLO projections. CLINICAL: Routine mammogram. Patient denies any problems. Mother with breast cancer. No personal history of breast cancer.Maternal and paternal aunt also had breast cancer. COMPARISONS: Comparison is made to exams dated: 02/23/2019 mammogram, 02/16/2019 mammogram, 12/08/2017 mammogram, 07/26/2014 mammogram, 07/13/2014 mammogram - [place], and 09/01/2019 breast MRI. BREAST TISSUE: The tissue of both breasts is heterogeneously dense, which may obscure small masses. FINDINGS: There are multiple, bilateral, similar-appearing, round and oval, circumscribed masses. These have fluctuated in comparison with multiple prior exams and are consistent with benign fluctuating cysts. They are considered to be benign based on their multiplicity, bilaterality, and morphology. There are no suspicious masses, suspicious calcifications, or other suspicious findings in either breast. There has been no suspicious interval change. IMPRESSION: BI-RAD 2 BENIGN There is no mammographic evidence of malignancy. A 1 year screening mammogram is recommended. The patient has been or will be contacted. We recommend annual screening mammography for women at average risk of breast cancer beginning at age 40, based on guidelines of the [employer] (ACR Practice Parameter for the Performance of Screening and Diagnostic Mammography) and [employer]. For women with an elevated risk of breast cancer, please refer to the ACR Practice Parameter for specific screening recommendations. The patient will be entered into a reminder system with a target due date of 1 year for her next screening exam. Electronically signed by: Yanick Lemons M.D. ab/:06/18/2020 13:24:45 Picc Nurse: Judith HASSAN(Juan)(Iban), [facility] letter sent: Normal Exam Reading location: BI-RADS: 2 Benign REPORT ELECTRONICALLY SIGNED IN OTHER VENDOR SYSTEM Resulting Agency Comment O Procedure Note Yanick Lemons MD - 06/18/2020 Patient Name: ZE DE LA FUENTE Dr: Lizeth Daniels CNPO.B: 1965 Exam Date: 06/11/20 0657 Age: 55 Sex: Female MR#: [id number] Loc: RADIOLOGY REPORT Order #[id number] [facility] Aimee Bilat Screening 3D Signed - MG [...] mammogram, 12/08/2017 mammogram, 07/26/2014 mammogram, 07/13/2014 mammogram- [place], and 09/01/2019 breast MRI. BREAST TISSUE: The [...] age 40, based on guidelines of the [employer] (ACR Practice Parameter for the Performance of Screening and Diagnostic Mammography) and [employer]. For women with an elevated risk of breast cancer, pleaserefer to the ACR Practice Parameter for specific screening recommendations. The patient will be entered into a reminder system with a target due dateof 1 year for her next screening exam. Electronically signed by: Yanick Lemons M.D. ab/:06/18/2020 13:24:45 Picc Nurse: Judith Shultz RT(Juan)(Iban), [facility] letter sent: Normal Exam Reading location: BI-RADS: 2 Benign REPORT ELECTRONICALLY SIGNED IN OTHER VENDOR SYSTEM Lizeth Daniels NP IMG MAMMO PROCEDURES Final Result from Last 3 Months or Most Recently Relevant to Health Maintenance Insurance [facility] Care Teams English Instructor Relationship Specialty Start Date End Date Lizeth Daniels NP [address] [place] [address] PCP - General 06/11/20 [place] [id number] [address] [facility] [address] [place] [address] Consulting Physician Endocrinology Diabetes & Metabolism 12/12/18
--- OUTSIDE RECORDS SUMMARY | 2025-02-12 16:21 | XMS_ITS | Referral Summary ---
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 Name Role Phone Kailash Morse MD Unavailable Lizeth Daniels NP Primary Care Provider +1- [phone] Encounters Date Type Department Care Team Description 11/23/2024 Telephone [facility] [address] [place] [phone] Kailash Morse MD Test Results from Last 3 Months Allergies No known [...] oral Frequency: BID Duration: Active vit D3-vit E-pkftimtxl-hpt s [phone] uqci-qvt-mc-mg tablet Take by mouth Active omega 5-rdt-fpq-fish oil 1,000 mg (120 mg-180 mg) capsule Active mvi, adult no.2 without vit K 3,300 unit-200 unit/10 mL solution Infuse into a venous catheter Active calcium nyeo-B7-aytcncl um asia 133 mg calcium -133 unit-67 [...] on file 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#: [id number] RADIOLOGY REPORT Order #[id number] [facility] Aimee Bilat Screening 3D Signed - MG [...] 12/08/2017 mammogram, 07/26/2014 mammogram, 07/13/2014 mammogram - [place], and 09/01/2019 breast MRI. BREAST TISSUE: The [...] age 40, based on guidelines of the [place] (ACR Practice Parameter for the Performance of Screening and Diagnostic Mammography) and [place] [employer]. For women with an elevated risk of breast cancer, please refer to the ACR Practice Parameter for specific screening recommendations. The patient will be entered into a reminder system with a target due date of 1 year for her next screening exam. Electronically signed by: Yanick Lemons M.D. ab/:06/18/2020 13:24:45 Sizing Sprayer: Judith HAYES)(M), [facility] letter sent: Normal Exam Reading location: BI-RADS: 2 Benign REPORT ELECTRONICALLY SIGNED IN OTHER VENDOR SYSTEM Resulting Agency Comment O Procedure Note Yanick Lemons MD - 06/18/2020 Patient Name: ZE DE LA FUENTE Bryanna Dr: Lizteh Daniels CNP, D.O.B: 1965 Exam Date: 06/11/20 0657 Age: 55 Sex: Female MR#: [id number] Loc: RADIOLOGY REPORT Order #[id number] [facility] Aimee Bilat Screening 3D Signed - MG [...] mammogram, 12/08/2017 mammogram, 07/26/2014 mammogram, 07/13/2014 mammogram- [place], and 09/01/2019 breast MRI. BREAST TISSUE: The [...] age 40, based on guidelines of the [place] [employer] (ACR Practice Parameter for the Performance of Screening and Diagnostic Mammography) and [place] [employer]. For women with an elevated risk of breast cancer, pleaserefer to the ACR Practice Parameter for specific screening recommendations. The patient will be entered into a reminder system with a target due dateof 1 year for her next screening exam. Electronically signed by: Yanick Lemons M.D. 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
--- OUTSIDE RECORDS SUMMARY | 2025-02-12 16:28 | XMS_ITS | Continuity of Care Document ---
Author Name [facility] Organization [facility] Care Team Providers Care Mesh Cutter Name Role Phone [facility] Unavailable Unavailable Problems Combined list of problems [...] Ordering Provider Order Date Order Qty Source [facility] oral capsule 0 total refill(s ), Maintena nce Ordered 2023 0055C-3 [facility] [place] alendronate 70 mg oral tablet TAKE ONE TABLET BY MOUTH ONCE A WEEK DIRECTED , # 12 EA, 1 total refill(s ), Acute Discont inued 05/19/2023 3 2022 12.0 Ambulat ory Pharmac y alendronate 70 mg oral tablet TAKE ONE TABLET BY MOUTH ONCE A WEEK DIRECTED , Oral, every week, # 12 EA, 4 total refill(s ), Acute, Pharmacy : [facility] Oral (given by mouth) Complet ed 05/19/2024 4 2023 12.0 0055C-3 [facility]th [facility] [place] alendronate 70 mg oral tablet 12 tab(s), 0 Refill(s ), 0 total refill(s ), Soft Stop Cancele d 05/29/20242023 0055C-3 [facility] alendronate 70 mg oral tablet 12 tab(s), 0 total refill(s ), Soft Stop Discont inued 05/12/20232022 0055C-3 75[facility] [place] aspirin 81 mg oral delayed release tablet 81 mg, ORAL, 1 Refill(s ), 0 total refill(s ), Soft Stop Discont inued 05/29/20242023 0055C-3 75th [facility] aspirin 81 mg oral delayed release tablet 1 tab(s), Oral, Daily, # 90 tab(s), 3 total refill(s ), [facility], Pharmacy : [facility] Oral (given by mouth) Ordered 4 2023 90.0 0055C-3 75th [facility] [place] aspirin 81 mg oral delayed release tablet 1 tab(s), Oral, Daily, # 90 tab(s), 0 total refill(s ), Maintena [facility], Pharmacy : [facility] Oral (given by mouth) Discont inued 09/15/2024 4 2023 90.0 0055C-[address] [place] [address] aspirin 81 mg oral delayed release tablet aspirin 81 mg oral delayed release tablet Start Date: 04/24/21 Stop Date: 05/12/23 Status: Anel scott Repeat number: 1 Discont inued 05/12/20232022 No Facilit y Access Aspirin Low Dose 81 mg oral delayed release tablet 90 tab(s), 0 total refill(s ), Soft Stop Discont inued 05/19/20232022 0055C-3 75th [facility] Aspirin Low Dose 81 mg oral delayed release tablet 1 tab(s), Oral, Daily, # 90 tab(s), 3 total refill(s ), [facility], Pharmacy : [facility] Oral (given by mouth) Discont inued 05/29/2024 4 2023 90.0 0055C-[address] [place] [address] atorvastati n 80 mg oral tablet 30 EA, 0 Refill(s ), 0 total refill(s ), Soft Stop Discont inued 01/19/20252024 6130C-A f-C-375 Th [facility] atorvastati n 80 mg oral tablet 1 tab(s), Oral, Daily, 30 EA, 0 Refill(s ), # 90 tab(s), 2 total refill(s ), [facility], Pharmacy : [facility] Oral (given by mouth) Ordered 5 2024 90.0 6130C-A f-C-375 Th [facility] calcium (as carbonate) 500 mg oral tablet See Instruct ions, t1 tab po bid, # 180 tab(s), 3 total refill(s ), [facility], Pharmacy : [facility] Ordered 4 2023 180.0 0055C-[address] [place] [address] calcium (as carbonate) 600 mg oral tablet 180 tab(s), 0 total refill(s ), Soft Stop Discont inued 05/19/20232022 0055C-3 75th AISHWARYA Reece calcium (as carbonate) 600 mg oral tablet 1 tab(s), Oral, BID, 180 tab(s), # 180 tab(s), 3 total refill(s ), Olvin davis, Pharmacy : [facility] Oral (given by mouth) Discont inued 07/18/2024 2023 180.0 0055C-3 [facility] AISHWARYA Reece calcium (as carbonate) 600 mg oral tablet calcium (as carbonat e) 600 mg oral tablet Start Date: 04/24/21 Stop Date: 05/19/23 Status: Ryliei tyler Repeat number: 1 Discont inued 05/19/20232022 No Facilit y Access Caltrate 600 + D oral tablet 0 Refill(s ), 0 total refill(s ), Soft Stop Discont inued 05/29/20242023 0055C-3 [facility] AISHWARYA Reece [employer] Senior oral tablet 90 tab(s), 0 total refill(s ), Soft Stop Discont inued 05/29/20242023 0055C-3 [facility] AISHWARYA Reece cholecalcif olvin 125 mcg (5000 intl units) oral capsule 0 Refill(s ), 0 total refill(s ), Soft Stop Discont inued 05/29/20242023 0055C-3 [facility] AISHWARYA Reece diclofenac 1% topical gel See instruct ions, Apply 2 grams (upper extremit ies) or 4 grams (lower extremit ies) to affected area topicall y four times daily as needed for pain. Max total body dose of 32 grams per day, # 100 g, 0 total refill(s ), Olvin davis Discont inued 05/19/20232022 100.0 0055C-3 [facility] AISHWARYA Reece diclofenac 1% topical gel diclofen ac 1% topical gel Start Date: 09/18/21 Stop Date: 05/12/23 Status: Anel scott Repeat number: 1 Discont inued 05/12/20232022 No Facilit y Access Eliquis 5 mg oral tablet 60 EA, 0 Refill(s ), 0 total refill(s ), Soft Stop Discont inued 01/19/20252024 6130C-A [facility] Eliquis 5 mg oral tablet 1 tab(s), Oral, BID, 180 EA, 3 Refill(s ), # 180 tab(s), 3 total refill(s ), Maintena nce, Pharmacy : [facility] Oral (given by mouth) Ordered 5 2024 180.0 6130C-A [facility] famciclovir 500 mg oral tablet 30 EA, 0 Refill(s ), 0 total refill(s ), Soft Stop Ordered 2023 0055C-3 [facility] famciclovir 500 mg oral tablet 3 total refill(s ) Discont inued 05/29/20242023 No Facilit y Access FLUARIX QUAD 8347-3786 (influenza virus vaccine quadrival 4927-5462(6 mos and up)/PF), 60MCG/.5ML, FLUARIX QUAD 2020- 2 (influen za virus vaccine quadriva l 2020- 2(6 mos and up)/PF), 60MCG/.5 ML, Start Date: 09/16/21 Stop Date: 05/19/23 Status: Disconti nued Repeat number: 1 Discont inued 05/19/20232022 No Facilit y Access FLUCELVAX QUAD 3087-0669 (flu vaccine quad 3884-2519(4 years and older)cell derived/PF) , 60MCG/.5ML FLUCELVA [...] by mouth) Discont inued 05/12/20232022 0055C-3 75[facility] Fosamax 70 mg oral tablet 1 tab(s), Oral, every week, with 6 to 8 ounces plain water, at least 30 minutes before first food, beverage , or medicati on of the day, # 12 tab(s), 3 total refill(s ), [facility]aintena [facility], Pharmacy : [facility] Oral (given by mouth) Ordered 2023 12.0 0055C-[address] [place] [address] [place] lysine 500 mg oral capsule 500 mg, Oral, BID, 0 total refill(s ), Maintena nce Oral (given by mouth) Ordered 2022 0055C-[address] [place] [address] [place] magnesium amino acids chelate Oral, 0 Refill(s ), 0 total refill(s ), Soft Stop Oral (given by mouth) Discont inued 10/24/20242023 0055C-[address] [place], [place] [address]Kayleigh Reece miscellaneo us medication 90 tab(s), 0 total refill(s ), Soft Stop Discont inued 05/19/20232022 0055C-[address] [place], [place] [address]Kayleigh Reece Motrin IB 200 mg oral tablet 2 tab(s), Oral, every 4 hr, PRN fever, # 120 tab(s), 0 total refill(s ), Maintena nce Oral (given by mouth) Ordered 2022 120.0 0055C-[address] [place], [place] [address]Kayleigh Reece Multivitami n oral tablet 1 tab(s), Oral, Daily, # 90 tab(s), 3 total refill(s ), [facility]ena [facility], Pharmacy : [facility] Oral (given by mouth) Ordered 2022 90.0 0055C-[address] [place] [address] [place] multivitami n with minerals tablet multivit [...] ), Soft Stop Discont inued 05/29/20242023 0055C-[address] [place], [place] [address]DEVI Reece Vitamin D2 50 mcg (2000 intl units) oral capsule 2 cap(s), Oral, Daily, WH increase to 5000u pt has 1000u in her other daily MVI, 0 total refill(s ), Maintena nce Oral (given by mouth) Ordered 20235C-[address] [place] [address] [place] Vitamin D3 0 total refill(s ), Maintena nce Discont inued 05/19/202320225C-[address] [place], [place] [address]ASHLEE [place] Vitamin D3 125 mcg (5000 intl units) oral capsule 1 cap(s), Oral, Daily, with food, # 90 cap(s), 2 total refill(s ), Maintena nce, Pharmacy : [facility] Oral (given by mouth) Ordered 2023 90.0 5C-[address] [place] [address] [place] Vitamin D3 50 mcg (2000 intl units) oral tablet 90 tab(s), 0 total refill(s ), Soft Stop Discont inued 10/24/202420235C-[address] [place] [address] [place] Immunizations Combined list of available immunizations from the Department of Defense and Veterans Affairs facilities. Immunization Series Date Given Administered By Site Reaction Lot Number CVX Code Drug Welfare Investigator Status Comments Source RSV vaccine preF3, recombinant 2023 DARLENERBRUNN ER 303 complet ed Result Comment: Route: Unknown Manufactu rer: OTH (SKB) 0055C-[address] [place] [address] [place] Influenza, injectable, MDCK-pf 2023 DARLENERBRUNN ER 153 complet ed Result Comment: Route: Unknown Manufactu rer: OTH (SEQ) 0055C-[address] [place], [place] [address]DEVI Reece Influenza, inj, MDCK, quadrivalent- pf 2022 DARLENERBRUNN ER 171 complet ed Result Comment: Route: Unknown Manufactu rer: OTH (SEQ) 0055C-[address] [place], [place] [address]Kayleigh Reece COVID-19 vaccine(Comir carolyn 12y+) 2022 DARLENERBRUNN [...] Unit: Unknown Manufactu rer: Pfizer Manufactu ring [place] (PFR) 0055C-3 [facility] [place] influenza, [...] ed Result Comment: Route: Unknown Manufactu rer: [facility] (SEQ) 0055C-3 [facility]th [facility] [place] influenza, injectable, quadrivalent- pf 2015 zzLef t Arm [id number] GlaxoSmithKli ne complet ed influenza , injectabl e, quadrival ent-pf 09/23/16 Given Ambulat ory Pharmac y influenza, seasonal, injectable-pf 2014 DONOVAN ER 140 complet ed Result Comment: Unit: Unknown Manufactu rer: () 5C-3 [facility]th [facility] influenza, seasonal, injectable 2013 zzLef t Arm [id number] Novartis Pharmaceutica ls complet ed influenza , seasonal, injectabl e 09/21/14 Given Ambulat ory Pharmac y influenza, seasonal, injectable 2011 zzRig ht Arm [id number] sanofi pasteur complet ed influenza , seasonal, injectabl e 09/01/12 Given Ambulat ory Pharmac y tetanus, diphtheria, acellular pertu is 2011 zzLef t Arm [id number] 115 GlaxoSmithKli ne complet ed tetanus, diphtheri a, acellular pertussis 09/01/12 Given Ambulat ory Pharmac y influenza, seasonal, injectable-pf 2010 zzLef t Arm [id number] 140 sanofi pasteur complet ed influenza , seasonal, injectabl e-pf 10/08/11 Given Ambulat ory Pharmac y influenza virus vaccine, live 2008 [id number] 111 [employer] complet ed influenza virus vaccine, live 09/30/09 Given Ambulat ory Pharmac y influenza virus vaccine,split 2007 zzLef t Arm [id number] sanofi pasteur complet ed influenza virus [...] ular(IM) Manufactu rer: [employer] (SKB) 0055C-[address] [place] [address] hepatitis B adult vaccine 2005 zzLef t Arm [id number] 43 GlaxoSmithKli ne complet ed hepatitis B adult vaccine 07/15/06 Given Ambulat ory Pharmac y HepB, Adult 2005 DARLENERBRUNN ER [id number] 43 complet ed Result Comment: Route: Intramusc ular(IM) Manufactu rer: [employer] (SKB) 0055C-[address] [place] [address] influenza virus vaccine,split [facility] [id number] sanofi pasteur complet ed influenza virus vaccine,s plit 10/19/05 Given Ambulat ory Pharmac y influenza virus vaccine, whole virus 2002 zzLef t Arm [id number] 16 Novartis Pharmaceutica complet ed influenza virus vaccine, whole virus 09/20/03 Given Ambulat ory Pharmac y influenza virus vaccine, whole virus 2001 zzLef t Arm [id number] 16 Interactive TKO complet ed influenza virus vaccine, whole virus 10/04/02 Given Ambulat ory Pharmac y tetanus-dipht h toxoids (Td) adult/adol 1998 zzLef t Arm [id number] complet ed tetanus-d iphth toxoids (Td) [...] Testing performed by Electrochemi luminescence . 5600A-U [facility] DB[facility] Mobile Chemistry Cholesterol Total 210 mg/dL 12/19 H Interpretive Data: According to the [place] [employer]: AGES 0-19: Desirable: < 170 mg/dL Borderline High: 170-199 mg/dL High Blood Cholesterol: >/= 200 mg/dL ADULTS: Desirable < 200 mg/dL Borderline High: 200-239 mg/dL High Blood Cholesterol: >/= 240 mg/dL [address] [place] [address] Chemistry Chol/HDL 3 mg/dL 12/[address] [place] [address] Chemistry HDL Cholesterol 62 mg/dL 40 - 59 12/19 H Interpretive Data: HDL (HIGH DENSITY LIPOPROTEIN) : ADULTS: Low: < 40 mg/dL High: >/= 60 mg/dL AGES 0 -19: Low: < 40 mg/dL Borderline Low: 40 - 45 mg/dL Acceptable: > 45 mg/dL [address] [place] [address] Chemistry LDL 145 mg/dL 100 - 130 12/19 H Interpretive Data: AGES 0-19: Desirable: < 110 mg/dL Borderline High: 110-129 mg/dL High: >/= 130 mg/dL ADULTS: Desirable: <100 mg/dL Near/above optimal: 100-130 mg/dL Borderline High: 131-159 mg/dL High: 160-189 mg/dL Very High: 190 mg/dL [address] [place] [address] Chemistry Triglycerid es 60 mg/dL 7 - 149 12/19 N Interpretive Data: AGES 0-9: Desirable: < 75 mg/dL Borderline High: 75-99 mg/dL High: >/= 100 mg/dL AGES 10-19: Desirable: < 90 mg/dL Borderline High: 90-129 mg/dL High: >/= 130 mg/dL ADULTS: Desirable: < 150 mg/dL Borderline High: 150-199 mg/dL High: >/= 240 mg/dL Very High: >/= 500 mg/dL 75th [facility] Chemistry LDL/HDL 2 12/[address] [place] [address] Chemistry eGFR CKD EPI 103 mL/min /1.73_ [...] 15-29 Severe decrease <15 Kidney failure 75th [facility] Chemistry Hemoglobin A1c 5.3 % 4.0 - [...] diabetes. Because studies have repeatedly shown that hge-gg-cwdap ol diabetes results in complication s from the disease, the goal for people with diabetes is a hemoglobin A1c less than 7%. The higher the hemoglobin A1c, the higher the risks of developing complication s related to diabetes. If confirmation is needed, consider recalling the patient and ordering Hemoglobin Electrophore sis. [address] [place] [address] Chemistry eAvg Glucose 105 mg/dL 09/[address] [place] [address] Chemistry Cholesterol Total 195 mg/dL 09/01 N Interpretive Data: According to the [place] [employer]: AGES 0-19: Desirable: < 170 mg/dL Borderline High: 170-199 mg/dL High Blood Cholesterol: >/= 200 mg/dL ADULTS: Desirable < 200 mg/dL Borderline High: 200-239 mg/dL High Blood Cholesterol: >/= 240 mg/dL [address] [place] [address] Chemistry Chol/HDL 4 mg/dL 09/[address] [place] [address] Chemistry LDL 137 mg/dL 100 - 130 09/01 H Interpretive Data: AGES 0-19: Desirable: < 110 mg/dL Borderline High: 110-129 mg/dL High: >/= 130 mg/dL ADULTS: Desirable: <100 mg/dL Near/above optimal: 100-130 mg/dL Borderline High: 131-159 mg/dL High: 160-189 mg/dL Very High: 190 mg/dL [address] [place] [address] Chemistry HDL Cholesterol 52 mg/dL 40 - 59 09/01 N Interpretive Data: HDL (HIGH DENSITY LIPOPROTEIN) : ADULTS: Low: < 40 mg/dL High: >/= 60 mg/dL AGES 0 -19: Low: < 40 mg/dL Borderline Low: 40 - 45 mg/dL Acceptable: > 45 mg/dL [address] [place] [address] Chemistry Triglycerid es 78 mg/dL 7 - 149 09/01 N Interpretive Data: AGES 0-9: Desirable: < 75 mg/dL Borderline High: 75-99 mg/dL High: >/= 100 mg/dL AGES 10-19: Desirable: < 90 mg/dL Borderline High: 90-129 mg/dL High: >/= 130 mg/dL ADULTS: Desirable: < 150 mg/dL Borderline High: 150-199 mg/dL High: >/= 240 mg/dL Very High: >/= 500 mg/dL [address] [place] [address] Chemistry LDL/HDL 3 09/01-[address] [place] [address] Chemistry BUN 20 mg/dL 7 - 20 09/01 N -[address] [place] [address] Chemistry Glucose Lvl 88 mg/dL 74 - 99 09/01 N - [address] [place] [address] Chemistry Albumin 3.70 g/dL 3.50 - 5.20 09/01 N - [address] [place] [address] Chemistry Creatinine Level 0.60 mg/dL 0.57 - 1.11 09/01 N - [address] [place] [address] Chemistry AGAP 8.00 0.00 - 15.00 09/01 N -[address] [place] [address] Chemistry CO2 27 mmol/L 22 - 29 09/01 N -[address] [place] [address] Chemistry Potassium Lvl 4.1 mmol/L 3.5 - 5.1 09/01 N -[address] [place] [address] Chemistry Chloride 106 mmol/L 98 - 107 09/01 N -[address] [place] [address] Chemistry Calcium 9.4 mg/dL 8.4 - 10.2 09/01 N -[address] [place] [address] Chemistry Phosphorus 3.1 mg/dL 2.3 - 4.7 09/01 N -[address] [place] [address] Chemistry Sodium 141 mmol/L 136 - 145 09/01 N -[address] [place] [address] Chemistry BUN/Creat Ratio 33 mg/dL 12 - 20 09/01 H - [address] [place] [address] Chemistry Vitamin D 25 OH 44.9 ng/mL [...] Testing performed by Electrochemi luminescence . 5600A-U [employer] Chemistry TSH 0.588 mIU/L 0.270 - 4.200 05/29 N Interpretive Data: Recommend: TPO/Thyroper oxidase Antibody when TSH result is > 4.2 uIU/mL 5600A-U [employer] Chemistry Cholesterol Total 217 mg/dL 05/29 H Interpretive Data: According to the [place] Heart [employer]: AGES 0-19: Desirable: < 170 mg/dL Borderline High: 170-199 mg/dL High Blood Cholesterol: >/= 200 mg/dL ADULTS: Desirable < 200 mg/dL Borderline High: 200-239 mg/dL High Blood Cholesterol: >/= 240 mg/dL [address] [place] [address] Chemistry Chol/HDL 3 mg/dL 05/[address] [place] [address] Chemistry HDL Cholesterol 71 mg/dL 40 - 59 05/29 H Interpretive Data: HDL (HIGH DENSITY LIPOPROTEIN) : ADULTS: Low: < 40 mg/dL High: >/= 60 mg/dL AGES 0 -19: Low: < 40 mg/dL Borderline Low: 40 - 45 mg/dL Acceptable: > 45 mg/dL [address] [place] [address] Chemistry LDL 173 mg/dL 100 - 130 05/29 H Interpretive Data: AGES 0-19: Desirable: < 110 mg/dL Borderline High: 110-129 mg/dL High: >/= 130 mg/dL ADULTS: Desirable: <100 mg/dL Near/above optimal: 100-130 mg/dL Borderline High: 131-159 mg/dL High: 160-189 mg/dL Very High: 190 mg/dL [address] [place] [address] Chemistry Triglycerid es 94 mg/dL 7 - 149 05/29 N Interpretive Data: AGES 0-9: Desirable: < 75 mg/dL Borderline High: 75-99 mg/dL High: >/= 100 mg/dL AGES 10-19: Desirable: < 90 mg/dL Borderline High: 90-129 mg/dL High: >/= 130 mg/dL ADULTS: Desirable: < 150 mg/dL Borderline High: 150-199 mg/dL High: >/= 240 mg/dL Very High: >/= 500 mg/dL [address] [place] [address] Chemistry LDL/HDL 2 05/[address] [place] [address] Chemistry eAvg Glucose 117 mg/dL 05/[address] [place] [address] Chemistry Hemoglobin A1c 5.7 % 4.0 - [...] diabetes. Because studies have repeatedly shown that kfd-wc-kpcgk ol diabetes results in complication s from the disease, the goal for people with diabetes is a hemoglobin A1c less than 7%. The higher the hemoglobin A1c, the higher the risks of developing complication s related to diabetes. If confirmation is needed, consider recalling the patient and ordering Hemoglobin Electrophore sis. [address] [place] [address] Vital Signs Combined list of inpatient and outpatient Vital Signs from Department of Defense and Veterans Affairs, ranging from 12 months to all on record, depending upon the facility. Vital Sign Value Date Comments Source Respiratory Rate 16 br/min 05/12/2023 20:09:[address] [place] [address] Peripheral Pulse Rate 90 bpm 05/12/2023 20:09:[address] [place] [address] Temperature Oral 36.8 Rakel 05/12/2023 20:09:[address] [place] [address] Systolic Blood Pressure 114 mm[Hg] 05/12/2023 20:09:[address] [place] [address] Diastolic Blood Pressure 65 mm[Hg] 05/12/2023 20:09:[address] [place] [address] Mean Arterial Pressure, Calc 81 mm[Hg] 05/12/2023 20:09:00 0055C-[facility] Mean Arterial Pressure, Calc 90 mm[Hg] 01/12/2025 14:27:00 6915Q-Bz-R-3 [facility] Peripheral Pulse Rate 70 bpm 01/12/2025 14:27:00 4888D-Hv-X-[facility] Systolic Blood Pressure 120 1 01/12/2025 14:27:00 7896J-Ad-T-[facility] Diastolic Blood Pressure 75 mm[Hg] 01/12/2025 14:27:00 8452F-Tq-S-[facility] Blood Pressure Manual Automatic 01/12/2025 14:27:00 3713V-Mu-Z-[facility] BP Site Left arm 01/12/2025 14:27:00 [...] Systolic Blood Pressure 118 mm[Hg] 02/07/2025 13:13:00 2057B-Ir-Y-[facility] Diastolic Blood Pressure 68 mm[Hg] 02/07/2025 13:13:00 4537V-Nt-X-[facility] BP Site Right arm 02/07/2025 13:13:00 6130C -Af-C-[facility] Mean Arterial Pressure, Calc 85 mm[Hg] 02/07/2025 13:13:00 7084P-Ml-E-3 [facility] Blood Pressure Manual Automatic 02/07/2025 13:13:00 2494F-Xv-F-[facility] Peripheral Pulse Rate 67 bpm 02/07/2025 13:13:00 6548H-Ct-U-[facility] Respiratory Rate 14 br/min 02/07/2025 13:13:00 4830W-Fz-C-[facility] Systolic Blood Pressure 125 mm[Hg] 05/19/2023 15:15:00 0055C-[facility] Diastolic Blood Pressure 76 mm[Hg] 05/19/2023 15:15:00 0055C-[facility] Temperature Oral 36.3 Rakel 05/19/2023 15:15:00 0055C-[facility] Respiratory Rate 14 [...] DC Date Status Disposition Source 6130-Af- C-[facility] Between Visit [id number] 01/02 Discharge Disposition: Home or Self Care 6130C-A f-C-[facility] [id number] Cerebra l infarct ion, unspeci fied,Un specifi ed atrial fibrill ation RYAN PCR 01/05 Discharge Disposition: Home or Self Care 6130C-A f-C-375 Th [facility] [place] 6130-Af- C-[facility]Th [facility] [id number] Persona l history of transie nt ischemi c attack (TIA), and cerebra l infarct ion without residua l deficit s RYAN PCR 01/12 Discharge Disposition: Home or Self Care [facility]-375 Th [facility] 0055C-375 th [facility] Between Visit [id number] 01/16 Discharge Disposition: Home or Self Care 0055C-3 [facility] [place] [facility] C-[facility] [id number] Acute upper respira tory infecti on, unspeci fied,Pe rsonal history of other venous thrombo sis and embolis m RYAN PCR 02/07 Discharge Disposition: Home or Self Care [facility] -C-375 Th [facility] Procedures Combined list of: 1) Procedures from Department of Veterans Affairs facilities going back up to thelast 18 months, not all VA non-surgical procedures are included; 2) All procedures from the Department of Defense facilities. Procedure Procedure Type Code Date Perfomer Comments Sourc e Hysteroscopy, diagnostic (separate procedure) Hysteroscopy, diagnostic (separate procedure) 00156 2 with D+C for endometrial polyp-B9 - [facility] female Sterilization 8 essure 5C-375 [facility] colposcopy '80's, no tx. nl paps since [facility] Social History Combined list of available smoking, tobacco, and other social history from Department of Defense and Veterans Affairs facilities. Social History Type Response Date Comment [facility] e Sex Representation Female 09/30/2021 Unknow [...] Source Assessment and Plan Extracted from:Title : [facility] [place] Author: RYAN CAVANAUGH MD Date: 02/07/25 1. H istory of embolism Acute, uncontrolled. Patient following up after inpatient stay for clot found in her R LEARNING TECHNOLOGIST on initial imaging that disappeared o n [...] for dehydration, WOB Capt Ryan Cavanaugh MD Steam Flattener, PGY-2 [facility], [place], [place] Addendum by GISEL PICKARD MD on [...] provider. Maj Lenore () [facility] [place] Extracted from:Title: [facility] [place] F/u Author: RYAN CAVANAUGH MD Date: 01/12/25 History of transient ischemic attack erinn Carmen. Admitted to [facility] -01/02/25 for stroke like symptoms, found to have a R LEARNING TECHNOLOGIST thrombus on CTA head and neck with [...] s well as etiology for the R LEARNING TECHNOLOGIST clot. - Follow-up in 1 month a nd hopefully follow-up formal paperwork and evaluate progress Ordered: Referral Request 2.0 - DoD Referral Request 2.0 - DoD Capt Ryan Cavanaugh MD Steam Flattener, PGY-2 [facility], [facility] [place] Addendum by SAW MARQUES MD on February 05, 2025 16:32:50 CDT I was present and available in the family medicine clinic to discuss the patient's care during the time of the appointment. I agree with the resident's assessment and plan as documented. Saw Marques MD, Faculty, [employer], VOL, Attending Physician Extracted from:Title: [facility] [place]errals Author: RYAN CAVANAUGH MD Date: 01/05/25 1. C [facility] - Cerebrovascular accident A cute, Unclear. Patient reportedly visiting family in [facility] and developed stroke like symptoms, t reated at [facility], heading home Wednesday. - Stressed bringing paperwork [...] nd in-person appointment Capt Ryan Cavanaugh MD Steam Flattener, PGY-2 [facility], [place], [place] Addendum by RACH CARLOS MD, Family Medicine on January 08, 2025 18:00:47 VENEER SAWYER I was present and available in the family medicine clinic during the patient's appointment.? The case was discussed with me and I agree with the assessment and plan as documented. ? HLF Extracted from:Title: NEW ORDER CLERK/Virtual, right ovarian cyst stable Author: LIZETH DANIELS [...] and symptoms in breast l ast MRI [id number], nl mammo 07/22; MRI due 2/25; discussed change from [employer] [facility]; to contact clinic just after new yr and will place referral for MRI to have scheduled for [id number] or later; pt V/U Pt questions addressed and i nstructions were provided to the patient. Lizeth Daniels [facility] DAMION Reece [facility] Extracted from:Title: 0055 [facility] annual Author: DERIC WHITE DO Date: [...] A SCVD r isk <5%. May continue Surprise 3, b ut no statin indicated at [...] [[place]] Continue Current management and eval with [facility]. Ramon White DO, MEd , , [facility] Internal Medicine, [employer] Extracted from:Title: NEW ORDER CLERK/Virtual, right ovarian cyst, fibroids Author: LIZETH DANIELS NP Date: 07/18/24 1. O ther ovarian cyst, right side to contact radiology 10/22 to schedule f/u US and virtual appt with me 2-3days after US appt Ordered: US Pelvis w/ Transvag non-OB Complete 2. L eiomyoma of uterus, unspecified Pt questions addressed and instructions were provided to the patient. Lizeth Daniels [facility] VISION THERAPIST [facility] Extracted from:Title: NEW ORDER CLERK/WWE, osteoporosis Author: LIZETH DANIELS NP Date: 05/29/24 [...] refill(s), Maintenance, t1 tab po bid, Pharmacy: [facility] [Federal Rx: #180 last filled [...] refill(s), Maintenance, 1 tab(s) Oral Daily, Pharmacy: [facility] [Last filled 05/29/24] Pt questions addressed and written discharge instructions were provided to the patient. Lizeth Daniels [facility] DAMION Reece [facility] Extracted from:Title: WWE Author: LIZETH DANIELS NP Date: 05/19/23 1. E ncounter for gynecological examination (general) (routine) with abnormal findings Ordered: aspirin(Aspirin Low Dose 81 mg oral delayed release tablet), 1 tab(s), Oral, Daily, # 90 tab(s), 3 total refill(s), Maintenance, 1 tab(s) Oral Daily, Pharmacy: [facility] [Federal Rx: #90 last filled [...] refill(s), Maintenance, 1 tab(s) Oral Daily, Pharmacy: [facility] [Not filled] Lizeth Martinez [facility] DAMION Reece [facility] Extracted from:Title: 0055 IM CL Forehead Nodule [...] encouraged to return to clinic, present to [facility] or ER for persistent worsening or development of other concerning symptoms. Patient cites understanding and agrees with plan of care. A total of 30 minutes was spent on this visit reviewing previous notes, counseling the patient on the listed diagnoses, reviewing/ordering tests, adjusting medications, and documenting the findings in this note. Ramon White DO, [facility], [facility] Internal Medicine, [place] [facility] 02/12/2025 [id number] Assessment and Plan Extracted from:Title : [facility] F[place]u Visit Author: RYAN CAVANAUGH MD Date: 02/07/25 1. H istory of embolism Acute, uncontrolled. Patient following up after inpatient stay for clot found in her R LEARNING TECHNOLOGIST on initial imaging that disappeared o n [...] for dehydration, WOB Capt Ryan Cavanaugh MD Steam Flattener, PGY-2 [facility], [facility] [place] Addendum by GISEL PICKARD MD on February [...] provider. Maj Lenore () Family Medicine Physician [facility] RITA Natarajan Extracted from:Title: [facility] [place] F/u Author: RYAN CAVANAUGH MD Date: 01/12/25 History of transient ischemic attack A cute, uncontrolled. Admitted to [facility] 2-01/02/25 for stroke like symptoms, found to have a R LEARNING TECHNOLOGIST thrombus on CTA head and neck with [...] s well as etiology for the R LEARNING TECHNOLOGIST clot. - Follow-up in 1 month a nd hopefully follow-up formal paperwork and evaluate progress Ordered: Referral Request 2.0 - DoD Referral Request 2.0 - DoD Capt Ryan Cavanaugh MD Steam Flattener, PGY-2 [facility], [place], [place] Addendum by SAW MARQUES MD on February 05, 2025 16:32:50 CDT I was present and available in the family medicine clinic to discuss the patient's care during the time of the appointment. I agree with the resident's assessment and plan as documented. Saw Marques MD, Faculty, [facility], Attending Physician Extracted from:Title: [facility] Referrals Author: RYAN CAVANAUGH MD Date: 01/05/25 1. C [facility] - Cerebrovascular accident A cute, Unclear. Patient reportedly visiting family in [facility] and developed stroke like symptoms, t reated at [facility], heading home Wednesday. - Stressed bringing paperwork to setup referrals and document her record in clinic, also advised can upload to [employer] v/u and aware - Patient not on [...] nd in-person appointment Capt Ryan Cavanaugh MD Steam Flattener, PGY-2 [facility], [facility] [place], [place] Addendum by RACH CARLOS MD, Family Medicine on January 08, 2025 18:00:47 VENEER SAWYER I was present and available in the family medicine clinic during the patient's appointment.? The case was discussed with me and I agree with the assessment and plan as documented. ? HLF Extracted from:Title: NEW ORDER CLERK/Virtual, right ovarian cyst stable Author: LIZETH DANIELS VISION THERAPIST Date: 10/24/24 1. O ther ovarian cyst, [...] and symptoms in breast l ast MRI [id number], nl mammo 07/22; MRI due 01/23; discussed change from [employer] t [facility]; to contact clinic just after new yr and will place referral for MRI to have scheduled for [id number] or later; pt V/U Pt questions addressed and i nstructions were provided to the patient. Liz[facility] VISION THERAPIST [facility] Extracted from:Title: 0055 IMCL annual Author: DERIC [...] A SCVD r isk <5%. May continue Surprise 3, b ut no statin indicated at [...] [[place]] Continue Current management and eval with [facility]. Ramon White DO, Danisha [facility], , [facility] Internal Medicine, [place] [facility] Extracted from:Title: NEW ORDER CLERK/Virtual, right ovarian cyst, fibroids Author: LIZETH DANIELS NP Date: 07/18/24 1. O ther ovarian cyst, right side to contact radiology 10/22 to schedule f/u US and virtual appt with me 2-3days after US appt Ordered: US Pelvis w/ Transvag non-OB Complete 2. L eiomyoma of uterus, unspecified Pt questions addressed and instructions were provided to the patient. Lizeth Daniels [facility] DAMION Reece [facility] Extracted from:Title: NEW ORDER CLERK/WWE, osteoporosis Author: LIZETH DANIELS NP Date: 05/29/24 [...] serving sizes can be found at h ttps://www.Loop Commercemyplate.gov/.&# 160; T hese amounts are appropriate for [...] were provided to the patient. Lizeth Daniels [facility] DAMION Reece [facility] Extracted from:Title: WWE Author: LIZETH DANIELS NP [...] [facility] [Not filled] Lizeth Daniels [facility] DAMION Reece [facility] Extracted from:Title: 0055 IM CL Forehead Nodule [...] findings in this note. Ramon White DO, [facility], , [facility] Internal Medicine, [employer] 02/12/2025 [id number] Functional Status Combined list of recent functional and cognitive assessments recorded at [employer] of [employer] and Veterans Affairs (VA).VA Functional Karthaus Measurement (FIM) Scale: 1 = Total Assistance (Subject = 0% +), 2 = Maximal Assistance (Subject = 25% +), 3 = Moderate Assistance (Subject = 50% +), 4 = Minimal Assistance (Subject = 75% +), 5 = Supervision, 6 = Modified Karthaus (Device), 7 = Complete Karthaus (Timely, Safely). Assessment Date/Time Source Assessment Type Assessment Skill Assessment Score Assessment Details No data available for this section
== END 2025-02-12 14:32 | disposition home or self-care (01) ==
PROVIDERS: Emergency Provider Nurse Practitioner
DX: N30.01 Acute cystitis with hematuria (principal); B96.20 Unspecified Escherichia coli [E. coli] as the cause of diseases classified elsewhere; M85.80 Other specified disorders of bone density and structure, unspecified site; Z79.82 Long term (current) use of aspirin
CPT/HCPCS: 81003; 87086; 87186; 99213; G0463

== ENCOUNTER 2025-06-02 08:53 | Emergency (ER) | payer OTHER, SELFPAY ==
--- NOTE | 2025-06-02 08:55 | ED_ITS ---
HPI - URI/Sore Throat General Chief Complaint: Eye Problems Stated Complaint: eye swelling/fluid buildup/drainage Time Seen by Provider: 06/02/25 08:54 Source: patient Mode of arrival: ambulatory Limitations: no limitations History of Present Illness HPI Narrative: Lita is a 60-year-old female patient presenting to the clinic today with complaints of eye redness, irritation, and discharge. She reports symptoms s tarted last night after viewing the fireworks. States the right eye started to drain. Woke up this morning with her eye matted shut. Has copious amounts of green mucopurulent discharge coming from the right eye and she states that the left eye is starting to become irritated. Denies any visual changes. Denies any known foreign body getting into her right eye. No known injury. Related Data Home Medications ?Medication ?Instructions ?Recorded ?Confirmed ?Last Taken ?Type alendronate 70 mg tablet (Fosamax) 70 mg PO WEEKLY 12/14/24 12/28/24 12/27/24 History aspirin 81 mg tablet,delayed 81 mg PO .nightly 12/14/24 12/28/24 12/27/24 History release calcium carbonate 1,250 mg PO DAILY 12/14/24 12/28/24 12/27/24 History cholecalciferol (vitamin D3) 125 125 mcg PO DAILY 12/14/24 12/28/24 12/23/24 History mcg (5,000 unit) capsule lysine 500 mg tablet (L-Lysine) 500 mg PO BID 12/14/24 12/28/24 12/27/24 History multivitamin with minerals-folic 1 tablet PO DAILY 12/14/24 12/28/24 12/23/24 History acid 80 mcg chewable tablet (Centrum Adult 50 Plus) omega 6-wxn-rnv-fish oil 1,200 mg 1,200 cap PO DAILY 12/14/24 12/28/24 12/23/24 History (144 mg-216 mg) capsule (Fish Oil) atorvastatin 80 mg tablet mg 06/02/25 Unknown History Allergies Allergy/AdvReac Type Severity Reaction Status Date / Time No Known Allergies Allergy Verified 06/02/25 09:10 Review of Systems Review of Systems: Pertinent positives per HPI. Patient denies any fever, chills, rash, headache, visual changes, dizziness, cough, shortness of breath, chest pain, palpitations, nausea, vomiting, diarrhea, constipation, abdominal pain, or any urinary issues. [facility] Past Medical History Medical History Colon cancer screening Osteopenia Fibroid Social History Social History Smoking status: Never smoker Alcohol intake: never Substance use: never Substance use type: does not use Living arrangements: with family Spiritual care concerns: No Comments At the time of my signature, I reviewed and agree with the nursing past medical, surgical, social, and family history. There is no relevant family history pertinent to the patient complaint. Exam Narrative: General: Well-developed, well nourished, in no apparent distress Head: Normocephalic, atraumatic Eyes: Pupils equally round and reactive to light bilaterally, EOM intact, right sclera and conjunctive injected with green mucopurulent discharge, mild lid swelling, left conjunctiva mildly injected, no discharge, left lids normal Ears: TMs intact and clear, ear canals clear, no drainage, grossly hearing no rmal. Nose: Nares patent, no discharge, no inflammation, no sinus tenderness. Mouth: Oral pharynx without lesions or masses, good dentition, MMM. Neck: Supple, trachea midline, no enlargement of anterior or posterior cervical nodes, no thyroid masses or goiter palpable. Cardio: Regular rate and rhythm, s1 and s2 normal, no murmur appreciated. Resp: Clear to auscultation bilaterally, no rhonchi, rales, wheezing or rubs Course Course Emergency Course: Portions of this record may have been created with voice recognition software. Level of Care: Express Care Visit Vital Signs Vital signs: Vital Signs Temperature 36.4 C L 06/02/25 09:08 Pulse Rate 63 06/02/25 09:08 Respiratory Rate 18 06/02/25 09:08 Blood Pressure 112/61 06/02/25 09:08 Pulse Oximetry 98 06/02/25 09:08 Oxygen Delivery Room Air 06/02/25 09:08 Temperature 36.4 C L 06/02/25 09:08 Pulse Rate 63 06/02/25 09:08 Respiratory Rate 18 06/02/25 09:08 Blood Pressure 112/61 06/02/25 09:08 Pulse Oximetry 98 06/02/25 09:08 Oxygen Delivery Room Air 06/02/25 09:08 Vital signs reviewed MDM - URI/Sore Throat MDM Narrative Medical decision making narrative: At the time of visit patient is resting comfortably on the exam table. Patient appears to be nontoxic. Plan: I suspect patient has bacterial conjunctivitis. Prescription for tobramycin eyedrops was sent to the pharmacy. Supportive measures were discuss ed with the patient and they voiced understanding discharge instructions and agrees to treatment plan. Return precautions reviewed Differential Diagnosis Differential diagnosis: Likely upper respiratory infection, otitis media, sinusitis, viral infection, bronchitis, influenza, pharyngitis and other (Conjunctivitis) Discharge Plan Discharge Clinical Impression: Bacterial conjunctivitis Patient Disposition: Home Condition: Stable Instructions: Antibiotic Form, Conjunctivitis (ED) Additional Instructions: Conjunctivitis is considered contagious for 24 hours while on the antibiotic. Practice good hand washing techniques Avoid touching eyes Instill eyedrops as prescribed-tobramycin May use warm moist washcloth to help remove eye discharge If eyes are matted shut-do not pry eyes open-use a warm moist cloth to loosen matting and wipe matter away from eye May take Tylenol/Motrin as needed for pain or fever May take Benadryl as needed for itching Follow-up with your PCP in 3-5 days if symptoms persist or sooner if they worsen Go to the emergency room if you develop any fever that is not controlled by Tylenol or Motrin, loss of vision, eye pain, increase eye swelling,visual changes, headache, confusion, lethargy, weakness, chest pain, or shortness of breath. Patient Language: Polish Prescriptions: New tobramycin 0.3 % drops 1 drp EACH EYE Q4H Qty: 5 0RF No Action atorvastatin 80 mg tablet aspirin 81 mg tablet,delayed release (DR/EC) 81 mg PO .nightly cholecalciferol (vitamin D3) 125 mcg (5,000 unit) capsule 125 mcg PO DAILY Centrum Adult 50 Plus 80 mcg tablet,chewable 1 tablet PO DAILY calcium carbonate 500 mg calcium (1,250 mg) tablet 1,250 mg PO DAILY omega 9-qpc-mzd-fish oil [Fish Oil] 1,200 (144-216) mg capsule 1,200 cap PO DAILY alendronate [Fosamax] 70 mg tablet 70 mg PO WEEKLY lysine [L-Lysine] 500 mg tablet 500 mg PO BID Follow-up/Referrals: UNKNOWN,DOCTOR [Non-Staff] - Time of Disposition: 09:15 Quality NIHSS Nursing Documentation ED NIHSS nursing documentation: reviewed/agree
--- OUTSIDE RECORDS SUMMARY | 2025-06-02 08:57 | XMS_ITS | Referral Summary ---
Author Organization [facility] Physician Office Building [address] [place] [id number] Care Team Providers Care Ignition Expert Name Role Phone Kailash Morse MD Unavailable Lizeth Daniels NP Primary Care Provider [phone] Allergies No known active allergies Medications lysine [...] oral Frequency: BID Duration: Active vit D3-vit X-maskgsdbf-zof s [id number] yxwo-lcu-zg-mg tablet Take by mouth Active omega 3-ojq-ubb-fish oil 1,000 mg (120 mg-180 mg) capsule Active mvi, adult no.2 without vit K 3,300 unit-200 unit/10 mL solution Infuse into a venous catheter Active calcium ikob-L7-wlvitxl um asia 133 mg calcium -133 unit-67 [...] on file 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 BREAST TISSUE: The [...] age 40, based on guidelines of the [employer] (ACR Practice Parameter for the Performance of Screening and Diagnostic Mammography) and [employer]. For women with an elevated risk of breast cancer, please refer to the ACR Practice Parameter for specific screening recommendations. The patient will be entered into a reminder system with a target due date of 1 year for her next screening exam. Electronically signed by: Yanick Lemons M.D. ab/:06/18/2020 13:24:45 Section Maintainer: Judith HAYES)(Iban), [facility] letter sent: Normal Exam Reading location: BI-RADS: 2 Benign REPORT ELECTRONICALLY SIGNED IN OTHER VENDOR SYSTEM Resulting Agency Comment O Procedure Note Yanick Lemons MD - 06/18/2020 Patient Name: ZE DE LA FUENTE Bryanna Dr: Lizeth Daniels CNP, D.O.B: 1965 Exam Date: 06/11/20 0657 Age: 55 Sex: Female MR#: [id number] Loc: RADIOLOGY REPORT Order #[id number] [facility] Aimee Bilat Screening 3D Signed [...] mammogram, 12/08/2017 mammogram, 07/26/2014 mammogram, 07/13/2014 mammogram- [facility], and 09/01/2019 breast MRI. BREAST TISSUE: The [...] age 40, based on guidelines of the [employer] (ACR Practice Parameter for the Performance of Screening and Diagnostic Mammography) and [employer]. For women with an elevated risk of breast cancer, pleaserefer to the ACR Practice Parameter for specific screening recommendations. The patient will be entered into a reminder system with a target due dateof 1 year for her next screening exam. Electronically signed by: Yanick Lemons M.D. ab/:06/18/2020 13:24:45 Section Maintainer: Judith HAYES)(Iban), [facility] letter sent: Normal Exam Reading location: BI-RADS: 2 Benign REPORT ELECTRONICALLY SIGNED IN OTHER VENDOR SYSTEM Lizeth Daniels NP IMG MAMMO PROCEDURES Final Result from Last 3 Months or Most Recently Relevant to Health Maintenance Insurance [facility] Care Teams Ignition Expert Relationship Specialty Start Date End Date Lizeth Daniels NP [address] [place] [address] PCP - General 06/11/20 [place] [id number] [facility] [address] [place] [address] Consulting Physician Endocrinology Diabetes & Metabolism 12/12/18
--- OUTSIDE RECORDS SUMMARY | 2025-06-02 08:57 | XMS_ITS ---
Author Organization [facility] Address [address] [place] [address] Care Team Providers Care Eyeletter Name Role Phone Migration, Provider Unavailable Unavailable REASON FOR VISIT EMR-Alexis Encounters Encounter Location Date Provider Diagnosis Migrated_Facility 0 0 04/22/2025 Provider Migration Plan Of Treatment No Information Progress Notes * ZE MIDDLETON ADOB:[birth year] (60 yo F)Acc No.[id number]:04/22/2025 Patient: ZE GEE :1965 A ge:60 Y S ex:Female Address:[address] [place] [address], [id number] Subjective: * Chief Complaints: * E MR-Alexis * * Date:
--- OUTSIDE RECORDS SUMMARY | 2025-06-02 08:57 | XMS_ITS | Clinical Summary ---
Author Organization [facility] [address] [place] [id number] Care Team Providers Care Sales Recruitment Specialist Name Role Phone Kailash Morse MD Unavailable Lizeth Daniels NP Primary Care Provider [phone] Allergies No known active allergies Medications lysine [...] oral Frequency: BID Duration: Active vit D3-vit D-ioiwaidoc-dmd s [phone] xora-vke-zx-mg tablet Take by mouth Active omega 8-yaj-nwx-fish oil 1,000 mg (120 mg-180 mg) capsule Active mvi, adult no.2 without vit K 3,300 unit-200 unit/10 mL solution Infuse into a venous catheter Active calcium nqsj-U0-mkvysoj um asia 133 mg calcium -133 unit-67 [...] If normal follow-up in 2- 3 year Surgical History Surgery Date Site/Laterality Comments OTHER [...] on file 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 BREAST TISSUE: The [...] age 39, based on guidelines of the [employer] [employer] (ACR Practice Parameter for the Performance of Screening and Diagnostic Mammography) and [place] [employer]. For women with an elevated risk of breast cancer, please refer to the ACR Practice Parameter for specific screening recommendations. The patient will be entered into a reminder system with a target due date of 1 year for her next screening exam. Electronically signed by: Yanick Lemons M.D. ab/:06/18/2020 13:24:45 [employer] Worker: Judith HASSAN(Juan)(I[place]), [facility] letter sent: Normal Exam Reading location: BI-RADS: 2 Benign REPORT ELECTRONICALLY SIGNED IN OTHER VENDOR SYSTEM Resulting Agency Comment O Procedure Note Yanick Lemons MD - 06/18/2020 Patient Name: ZE DE LA FUENTE Bryanna Dr: Lizeth Daniels CNP, D.O.B: 1965 Exam Date: 06/11/20 0657 Age: 55 Sex: Female MR#: [id number] Loc: RADIOLOGY REPORT Order #[id number] [facility] Aimee Bilat Screening 3D Signed - MG [...] mammogram, 12/08/2017 mammogram, 07/26/2014 mammogram, 07/13/2014 mammogram- [place], and 09/01/2019 breast MRI. BREAST TISSUE: The [...] age 39, based on guidelines of the [place] [employer] (ACR Practice Parameter for the Performance of Screening and Diagnostic Mammography) and [place] [employer]. For women with an elevated risk of breast cancer, pleaserefer to the ACR Practice Parameter for specific screening recommendations. The patient will be entered into a reminder system with a target due dateof 1 year for her next screening exam. Electronically signed by: Yanick Lemons M.D. ab/:06/18/2020 13:24:45 [employer] Worker: Judith HAYES)(Iban), [facility] letter sent: Normal Exam Reading location: BI-RADS: 2 Benign REPORT ELECTRONICALLY SIGNED IN OTHER VENDOR SYSTEM Lizeth Daniels BEAUTY OPERATOR IMG MAMMO PROCEDURES Final Result from Last 3 Months or Most Recently Relevant to Health Maintenance Insurance [facility] Care Teams Sales Recruitment Specialist Relationship Specialty Start Date End Date Lizeth Daniels NP [address] [place] [address] PCP - General 06/11/20 [place] [id number] [facility] [address] [place] [address] Consulting Physician Endocrinology Diabetes & Metabolism 12/12/18
--- OUTSIDE RECORDS SUMMARY | 2025-06-02 08:58 | XMS_ITS | Clinical Summary ---
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 Active Multiple Vitamins-Minera ls (ONCOVITE) Tab Take 1 tablet by mouth daily. Active atorvastatin (LIPITOR) 80 MG tablet Take 1 tablet (80 mg total) by mouth nightly at bedtime. 01/24/2025 Active alendronate (FOSAMAX) 70 MG tablet Take 1 tablet (70 mg total) by mouth every 7 days. 01/13/2025 Active oyster shell calcium 500 mg, elemental, (OSCAL) 500 MG tablet Take 1 tablet (500 mg total) by mouth 2 (two) times daily. 10/23/2024 Active ELIQUIS 5 MG tablet Take 1 tablet (5 mg total) by mouth 2 (two) times daily. 01/24/2025 Active famciclovir (FAMVIR) 500 MG tablet TAKE 3 TABLETS BY MOUTH AT FIRST HINT OF SYMPTOMS THEN TWO TABS BY MOUTH EVERY 12 HOURS AFTER INITIAL DOSE 07/17/2024 Active Fulton-3 Fatty Acids (FISH OIL) 1200 MG Cap Take by mouth 3 (three) times daily. Active Lysine HCl 500 MG Tab Take by mouth daily. Active multi vitamin/mineral s (CENTRUM ADULTS) tablet Take 1 tablet by mouth daily. Active aspirin 81 MG chewable tablet Chew 1 tablet (81 mg total) by mouth daily. Active Active Problems Problem Noted Date Diagnosed Date Status post placement of implantable loop record er 05/14/2025 Overview (05/14/2025): Medtronic LINQII ILR implanted 05/14/2025 for Cryptogenic Stroke Cerebral embolism 02/16/2025 Assessment & Plan (04/06/2025 12:47 PM CDT): 30-day event monitor did not show any evidence of atrial fibrillation. Will plan for a loop recorder implant to continue to monitor for any evidence of A-fib. Reviewed echocardiogram from [place] and it is unclear if a bubble study was done at that time. Will order a repeat echocardiogram with bubble study to rule out a PFO. Will continue on Eliquis at this time and continue atorvastatin Assessment & Plan (02/16/2025 12:13 PM CDT): Patient experienced a cerebral embolism, likely due to a blood clot that formed in the heart and traveled to the brain. The event occurred on a Wednesday morning, presenting with room shaking sensation, slight headache, and lip numbness. CAT scan confirmed a blood clot in an artery to the brain. The patient was admitted to ICU from Wednesday morning until Wednesday night. . Atrial fibrillation (AFib) is suspected as the underlying cause, though EKG at the hospital showed normal rhythm. A heart monitor watch worn by the patient showed 2-3% irregularities in the last couple of weeks. - Continue Eliquis (blood thinner) as prescribed - Wear heart monitor for 30 days to detect potential AFib episodes - Consider loop recorder for long-term heart rhythm monitoring - Obtain copy of echocardiogram from [facility] - Schedule appointment with local neurologist (Dr. Figueroa on May 05) - Neurologist to determine if blood thinner is a permanent treatment - Consider hypercoagulable workup if heart workup is negative Cryptogenic stroke ([facility]) 01/03/2025 Overview (05/14/2025): Medtronic LINQII ILR implanted 05/14/2025 for Cryptogenic Stroke Paroxysmal atrial fibrillation ([facility] HHS/HCC) 01/03/2025 Assessment & Plan (04/06/2025 12:47 PM CDT): Recent event monitor did not show any evidence of atrial fibrillation. Patient reports her watch has been notifying her of a 2% A-fib burden every single day. Will plan for a loop recorder at this time and continue on Eliquis. Assessment & Plan (02/16/2025 12:13 PM CDT): Recommend ruling out atrial fibrillation as above with event monitor and possible loop recorder. Continue anticoagulation. Encounters Date Type Department Care Team Description 05/18/2025 11:30 AM CDT [facility] [address] [place] [phone] Jameson Coffman MD Follow Up (Discuss PFO) 05/18/2025 Travel 05/15/2025 Telephone [facility] [address] [address] Neda Oviedo MA Postop Followup 05/14/2025 6:27 AM CDT - 05/14/2025 8:19 AM CDT Hospital Encounter [facility] [place] [address] Caro Bashir PA Hushion, Michael J, MD Discharge Disposition: Home or Self Care (Routine Discharge) 05/14/2025 Scan [facility], [address] [address] Scanned, Doc Pccl 05/14/2025 Travel 05/07/2025 Telephone [facility] [address] [address] Jessie Fernandez RN Returned Call 05/04/2025 Orders Only [facility], [address] [address] Caro Bashir PA 05/03/2025 Telephone [facility], [address] [place] [address] Caro Bashir PA Question 04/25/2025 Results Follow-Up [facility] [address] [place] [phone] Rupali Das RN USE ECHOCARDIOGRAM 04/24/2025 12:31 PM CDT - 04/24/2025 11:59 PM CDT Hospital Encounter [facility] Ultrasound [address] [place] [address] Caro Bashir PA Discharge Disposition: Home or Self Care (Routine Discharge) 04/24/2025 Travel 04/16/2025 Results Follow-Up [facility] [address] [place] [phone] Sylvia Ivey RN CLINIC - OUTPATIENT EVENT RECORDER (ECG) UP TO 30 DAYS COMPLETE (Holter) 04/09/2025 Results Follow-Up [facility] - [facility] [address], [address] [place] [phone] Jonelle Cueto MD USV SHELL DUPLEX LOW EXT ABDI, CTA HEAD+NECK 04/06/2025 1:38 PM CDT - 04/06/2025 11:59 PM CDT Hospital Encounter [facility] Ultrasound [address] [place] [address] Jonelle Cueto MD Discharge Disposition: Home or Self Care (Routine Discharge) 04/06/2025 10:00 AM CDT Office Visit [facility] [address] [place] [phone] Caro Bashir PA Atrial Fibrillation (Follow up [facility]) 04/06/2025 Telephone [facility], [address] [place] [address] Jameson Coffman MD Schedule Procedure 04/06/2025 Travel 04/05/2025 8:14 AM CDT - 04/05/2025 11:59 PM CDT [place] [address] [place] [address] Jonelle Cueto MD Discharge Disposition: Home or Self Care (Routine Discharge) 04/05/2025 Travel 03/29/2025 8:40 AM CDT Office Visit [facility] - [facility] [address], [address] [place] [address] Jonelle Cueto MD Establish Care (Cerebral infarction, Cerebral embolism) 03/29/2025 Travel from Last 3 Months Immunizations Immunization Administration Dates Next Due Arexvy Respiratory Syncytial [...] drink = 0.6 oz pur e alcohol) PHQ-2 Answer Date Recorded Patient Health Questionnaire-2 Score 0 03/29/2025 Comments Unknown Sex and Gender Information Value Date Recorded Sex Assigned at Female 01/16/2025 10:18 AM 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 MAKER Legal Sex Female 8:27 PM CDT Gender Identity Not on file Sexual Orientation Not on file Last Filed Vital Signs Vital Sign Reading Time Taken Comments Blood Pressure 110/70 05/18/2025 9:55 AM CDT Pulse 57 05/18/2025 9:55 AM CDT Temperature 36.4 C (97.5 F) 05/14/2025 7:03 AM CDT Respiratory Rate 14 05/14/2025 7:03 AM CDT Oxygen Saturation 99% 05/14/2025 7:03 AM CDT Inhaled Oxygen Concentration - - Weight 70.3 kg (155 lb) 05/18/2025 9:55 AM CDT Height 165.1 cm (5' 5) 05/18/2025 9:55 AM CDT Body Mass Index 25.79 05/18/2025 9:55 AM CDT Plan of Treatment Upcoming Encounters Date Type Department Care Team (Late st Contact Info) Description 06/18/2025 4:00 PM CDT Allied Health/Nurse Visit [facility], [address] [place] [address] Krishan Tom MD Three [facility]. [address] [place] [address] 06/21/2025 1:00 PM CDT Office Visit [facility] - [facility] [address], [address] [place] [phone] Jonelle Cueto MD [address] [place] [address] 06/26/2025 11:00 AM CDT Appointment [facility] [place] [address] Jameson Coffman MD Three [facility]. [address] [place] [address] Health Maintenance Due Date Last Done Comments Cervical Cancer Screening Pap Smear (Age 30 to 64) Every 3 Years 1965 Colorectal Cancer Screening Colonoscopy (10 Years) 1965 Annual Physical 1967 Hepatitis C 1982 Cervical Cancer Screening Pap with HPV Testing (Age 30 to 64) Every 5 Years 1994 Cervical Cancer Screening with HPV 1994 Pneumococcal Vaccine: 50+ Years (1 of 1 - PCV) 2014 Mammogram Screening 06/11/2022 06/11/2020 COVID-19 Vaccine ( season) 2024 09/05/2023, 09/24/2022, 11/08/2021, Additional history exists DTaP, Tdap and Td Vaccines (3 - Td or Tdap) 10/23/2032 10/23/2022, 09/01/2012, 10/22/1999 Zoster Vaccines Completed 04/14/2019, 12/14/2018 RSV Immunization or 60+ Years Completed 09/02/2024 PHQ-2 (Physician [place]) Completed 03/29/2025 Meningococcal B Vaccine Aged Out No l onger eligible based on patient's age to complete this topic Meningococcal Vaccine Aged Out No anita reese eligible based on patient's age to complete this topic RSV Immunizations Under 20 Months Aged Out No longer eligible based on patient's age to complete this topic Medical Devices Implanted Type Area Electronic Parts Salesperson Device Identifier Shelf Expiration Date Model / Serial / Lot Implantable Loop [id number] Implanted:Qty: 1 on 05/14/2025 by Krishan Tom MD Implantable Loop Recorder Left: Chest [employer] CARDIAC RHYTHM AND HEART FAILURE - DIV M 09/24/2026 [id number] / [id number] / Procedures Procedure Name Priority Date/Time Associated Diagnosis Comments XA LOOP RECORDER Routine 05/14/2025 7:49 AM CDT Paroxysmal atrial fibrillation (CMS/HCC HHS/HCC) USE ECHOCARDIOGRAM Routine 04/24/2025 1: 31 PM CDT Cerebral embolism Paroxysmal atrial fibrillation (CMS/HCC HHS/HCC) USV SHELL DUPLEX LOW EXT ABDI Routine 04/06/2025 2:16 PM CDT Basilar artery occlusion CTA HEAD+NECK Routine 04/05/2025 9:03 AM CDT Basilar artery occlusion EVENT RECORDER (ECG) UP TO 30 DAYS COMPLETE Routine 03/16/2025 12:54 PM CDT Unspecified atrial fibrillation (CMS/HCC HHS/HCC) from Last 3 Months Results * XA LOOP RECORDER (05/14/2025 7:49 AM CDT) Anatomical Region Laterality Modality Cardiac Assembler Corncob Pipes Narrative 05/18/2025 6:33 AM CDT [facility] CARDIAC CATHETERIZATION/EP LAB [phone] x [phone] IMPLANTATION OF A LOOP RECORDER REPORT Patient Name: Lita De La Fuente Date of : 1965 Medical Record: #[id number] Account: #[id number] Physician: Krishan Tom MD Date: 05/14/2025 Procedure: #[id number] INDICATION: Monitor for Arrhythmia PROCEDURE: Patient was marked at the left 4th intercostal space. Lidocaine was infiltrated at the site. The punch tool was used to make a one cm incision. The device was inserted subcutaneously. The wound was closed with Dermabond solution and 3-0 Vicryl. Device was interrogated/programmed. [employer] Reveal LINQ, model #LNQ22, Serial #[id number]. CONCLUSION: Successful implantation of implantable media monitor. MD DEB Yost/vs Interpreted: 05/14/25 Transcribed: 05/17/25 us Caro JONES LEAD GENERATOR Final Result * USE ECHOCARDIOGRAM (04/24/2025 1:31 PM CDT) Anatomical Region Laterality Modality Cardiac Ultrasound 04/24/2025 12:5 4 PM CDT Narrative 04/24/2025 6:30 PM CDT YONY DANIELS Pat.Name: Lita De La Fuente Pat.ID: [id number] .Date: 04/24/2025 Refer.MD: Chasity, [facility] Radiology Exam Time: 12:54:00 PM Study Type:OUTREACH Height: 65 in Weight: 145 lb BSA: 1.73 m2 Age: 3 1965,60Y Sex: F Sonogrphr: Kk Pat. Stat.:Outpatient Reason for Study:Ischemic Stroke Procedures: Study performed at [place], [place] and interpreted by [facility]. 2D, M-mode, Doppler, Color Flow, Myocardial contrast was used to enhance endocardial definition. ++++++++++++++++++++++++++++++++++++ SUMMARY: ++++++++++++++++++++++++++++++++++++ The left ventricular size is normal. Left ventricular function is normal. The ejection fraction is >55%. Wall motion appears normal in all segments. Diastolic filling is normal for age. The agitated saline injection showed evidence of shunting into the left atrium, consistent with patent foramen ovale. The atrial septum appears aneurysmal. No significant valvular abnormality. Unable to reliably quantitate pulmonary systolic pressure. I have personally reviewed the measurements and images and agree with the vascular fellow/resident's preliminary interpretation above. ++++++++++++++++++++++++++++++++++++ FINDINGS: ++++++++++++++++++++++++++++++++++++ LV: The left ventricular size is normal. Left ventricular function is normal. The ejection fraction is >55%. Diastolic filling is normal for age. WM: Wall motion appears normal in all segments. RV: The right ventricle size is normal. The right ventricular function appears normal. No quantifiation performed LA: Left atrial size is normal. RA: The right atrial size is normal. IAS: The agitated saline injection showed evidence of shunting into the left atrium, consistent with patent foramen ovale. The atrial septum appears aneurysmal. JAIMIE: No evidence of pericardial effusion. AO: Aorta is normal. PA: Unable to reliably quantitate pulmonary systolic pressure. SVn: Inferior vena cava is normal. AV: The aortic valve is trileaflet. There is no aortic stenosis. There is no evidence of aortic regurgitation. MV: The mitral valve is structurally normal. There is trace mitral regurgitation. PV: The pulmonic valve is normal There is trace pulmonic regurgitation TV: The tricuspid valve appears structurally normal. There is trace tricuspid regurgitation. <Electronic Signature> 04/24/2025 06:30 PM Blue Jose M.D. Procedure Note Blue Jose MD - 04/24/2025 [facility] Pat.Name: Lita De La Fuente [facility].ID: [id number] .Date: 04/24/2025 Refer.MD: Chasity, [facility] Radiology Exam Time: 12:54:00 PM Study Type:[facility] Height: 65 in Weight: 145 lb BSA: 1.73 m2 Age: 3 1965,60Y Sex: F Sonogrphr: Kavita Radha. Stat.:Outpatient Reason for Study:Ischemic Stroke Procedures: Study performed at [place], [place] and interpreted by [facility]. 2D, M-mode, Doppler, Color Flow, Myocardial contrast was used to enhance endocardial definition. ++++++++++++++++++++++++++++++++++++ SUMMARY: ++++++++++++++++++++++++++++++++++++ The left ventricular size is normal. Left ventricular function is normal. The ejection fraction is >55%. Wall motion appears normal in all segments. Diastolic filling is normal for age. The agitated saline injection showed evidence of shunting into the left atrium, consistent with patent foramen ovale. The atrial septum appears aneurysmal. No significant valvular abnormality. Unable to reliably quantitate pulmonary systolic pressure. I have personally reviewed the measurements and images and agree with the vascular fellow/resident's preliminary interpretation above. ++++++++++++++++++++++++++++++++++++ FINDINGS: ++++++++++++++++++++++++++++++++++++ LV: The left ventricular size is normal. Left ventricular function is normal. The ejection fraction is >55%. Diastolic filling is normal for age. WM: Wall motion appears normal in all segments. RV: The right ventricle size is normal. The right ventricular function appears normal. No quantifiation performed LA: Left atrial size is normal. RA: The right atrial size is normal. IAS: The agitated saline injection showed evidence of shunting into the left atrium, consistent with patent foramen ovale. The atrial septum appears aneurysmal. JAIMIE: No evidence of pericardial effusion. AO: Aorta is normal. PA: Unable to reliably quantitate pulmonary systolic pressure. SVn: Inferior vena cava is normal. AV: The aortic valve is trileaflet. There is no aortic stenosis. There is no evidence of aortic regurgitation. MV: The mitral valve is structurally normal. There is trace mitral regurgitation. PV: The pulmonic valve is normal There is trace pulmonic regurgitation TV: The tricuspid valve appears structurally normal. There is trace tricuspid regurgitation. <Electronic Signature> 04/24/2025 06:30 PM Blue Jose M.D. Caro JOENS ECHO Final Result * USV SHELL DUPLEX LOW EXT ABDI (04/06/2025 2:16 PM CDT) Anatomical Region Laterality Modality Extremity Ultrasound 04/06/2025 3:29 PM CDT Impressions 04/06/2025 3:31 PM CDT IMPRESSION: 1. No evidence of DVT. Ordered By: JONELLE CUETO Interpreted By: Orquidea Bassett, 04/06/2025 3:29 PM Narrative 04/06/2025 3:31 PM [address]T [address] [place] [address] IMAGING STUDIES: USV SHELL DUPLEX LOW EXT ABDI EXAM DATE/TIME: 04/06/2025 1:40 PM CLINICAL HISTORY: nonocclusive thrombus in the basilar artery, rule out DVT . FINDINGS: THERE IS NO EVIDENCE OF DVT WITHIN THE RIGHT AND LEFT COMMON FEMORAL VEINS OR BILATERAL PROXIMAL SAPHENOUS VEINS. THERE IS NO EVIDENCE OF DVT WITHIN THE ENTIRE COURSE OF THE RIGHT AND LEFT FEMORAL VEINS. NO EVIDENCE OF DVT WITHIN THE RIGHT AND LEFT POPLITEAL VEINS OR POSTERIOR TIBIAL VEINS. COLOR FLOW DOPPLER WITH SPECTRAL AND WAVEFORM ANALYSIS Procedure Note Carlos Bassett MD - 04/06/2025 [facility] [address] [facility] [place] [address] IMAGING STUDIES: USV SHELL DUPLEX LOW EXT ABDI EXAM DATE/TIME: 04/06/2025 1:40 PM CLINICAL HISTORY: nonocclusive thrombus in the basilar artery, rule outDVT . FINDINGS: THERE IS NO EVIDENCE OF DVT WITHIN THE RIGHT AND LEFT COMMON FEMORAL VEINSOR BILATERAL PROXIMAL SAPHENOUS VEINS. THERE IS NO EVIDENCE OF DVT WITHIN THE ENTIRE COURSE OF THE RIGHT AND LEFTFEMORAL VEINS. NO EVIDENCE OF DVT WITHIN THE RIGHT AND LEFT POPLITEAL VEINS OR POSTERIORTIBIAL VEINS. COLOR FLOW DOPPLER WITH SPECTRAL AND WAVEFORM ANALYSIS IMPRESSION: 1. No evidence of DVT. Ordered By: JONELLE CUETO Interpreted By: Orquidea Bassett, 04/06/2025 3:29 PM Jonelle Cueto MD VASC Final Re sult * CTA HEAD+NECK (04/05/2025 9:03 AM CDT) Anatomical Region Laterality Modality Head, Neck Computed Tomogra phy 04/10/2025 5:06 AM CDT Impressions 04/10/2025 5:21 AM CDT IMPRESSION: No evidence of hemodynamically significant stenosis. Minor plaque formation. No intracranial aneurysm. Prior outside report described thrombus in the posterior circulation is Not visualized on today's exam. Grossly patent vasculature. Outside study will be requested for review. Referred By: JONELLE CUETO Interpreted By: Carlos Bassett MD, 04/10/2025 5:06 AM Narrative 04/10/2025 5:21 AM CDT [facility] [address] [place] [address] DATE: 04/05/2025 8:29 AM INDICATION: Prior exam with nonocclusive thrombus within the basilar tip and occlusion of the right sided superior cerebellar artery. EXAMINATION: CT angiography of the head and neck with contrast. TECHNIQUE: CT angiography of the head and neck were performed after uneventful intravenous administration of . CT dose reduction techniques were utilized. Internal carotid stenosis measured according to NASCET criteria. Axial and 3-D/MIP images were reconstructed and reviewed. A dose lowering technique was used for this procedure, which may include, but is not limited to, dose reduction technique, automated exposure control, the use of iterative reconstruction, and ALARA (As Low As Reasonably Achievable) / Image Gently techniques. COMPARISON: Only the prior outside report of December 31, 2024 is available. Images are not available for review. The outside study will be requested . FINDINGS: CTA NECK: Aorta and great vessel origins: Classic 3 vessel aortic arch origin anatomy.. No significant plaque at their origins. Right carotid artery: No hemodynamically significant stenosis. Minimal plaque within the proximal right internal carotid artery Left carotid artery: No hemodynamically significant stenosis. No significant plaque. Right vertebral artery: Patent without plaque or stenosis. Left vertebral artery: Dominant. Patent without plaque or stenosis. CTA HEAD: Intracranial ICA segments and proximal portions of the anterior and middle cerebral arteries are patent and unremarkable. ACOM patent. Minimal plaque in the cavernous portions of the internal carotid arteries Posterior circulation is left dominant. Basilar artery patent and unremarkable to the terminus. Proximal portions of the posterior cerebral arteries, superior cerebellar arteries, and AICA /PICA loops are patent. Posterior communicating arteries patent. SOFT TISSUES: No evidence of neck mass or pathologic lymphadenopathy. Partially calcified right thyroid gland nodule. Lung apices with mild scar. Mild degenerative change in cervical spine. Procedure Note Carlos Bassett MD - 04/10/2025 [facility] [address] [place] [address] DATE: 04/05/2025 8:29 AM INDICATION: Prior exam with nonocclusive thrombus within the basilar tipand occlusion of the right sided superior cerebellar artery. EXAMINATION: CT angiography of the head and neck with contrast. TECHNIQUE: CT angiography of the head and neck were performed afteruneventful intravenous administration of . CT dose reduction techniqueswere utilized. Internal carotid stenosis measured according to NASCETcriteria. Axial and 3-D/MIP images were reconstructed and reviewed. A dose lowering technique was used for this procedure, which may include,but is not limited to, dose reduction technique, automated exposurecontrol, the use of iterative reconstruction, and ALARA (As Low AsReasonably Achievable) / Image Gently techniques. COMPARISON: Only the prior outside report of December 31, 2024 isavailable. Images are not available for review. The outside study willbe requested . FINDINGS: CTA NECK: Aorta and great vessel origins: Classic 3 vessel aortic arch originanatomy.. No significant plaque at their origins. Right carotid artery: No hemodynamically significant stenosis. Minimalplaque within the proximal right internal carotid artery Left carotid artery: No hemodynamically significant stenosis. Nosignificant plaque. Right vertebral artery: Patent without plaque or stenosis. Left vertebral artery: Dominant. Patent without plaque or stenosis. CTA HEAD: Intracranial ICA segments and proximal portions of the anterior and middlecerebral arteries are patent and unremarkable. ACOM patent. Minimalplaque in the cavernous portions of the internal carotid arteries Posterior circulation is left dominant. Basilar artery patent andunremarkable to the terminus. Proximal portions of the posterior cerebralarteries, superior cerebellar arteries, and AICA /PICA loops are patent.Posterior communicating arteries patent. SOFT TISSUES: No evidence of neck mass or pathologic lymphadenopathy. Partiallycalcified right thyroid gland nodule. Lung apices with mild scar. Mild degenerative change in cervical spine. IMPRESSION: No evidence of hemodynamically significant stenosis. Minor plaqueformation. No intracranial aneurysm. Prior outside report described thrombus in the posterior circulation isNot visualized on today's exam. Grossly patent vasculature. Outside study will be requested for review. Referred By: JONELLE CUETO Interpreted By: Carlos Bassett MD, 04/10/2025 5:06 AM us Jonelle Cueto MD CT Final Re sult * CLINIC - OUTPATIENT EVENT RECORDER (ECG) UP TO 30 DAYS COMPLETE (Holter) (03/16/2025 12:54 PM CDT) Narrative [facility] - 03/16/2025 12:54 PM CDT [address] [place] [address] COMMISSARY OFFICER REPORT PATIENT NAME: Lita De La Fuente : 1965 PCP: RYAN CAVANAUGH MD INTERPRETING SENIOR MARKETING ENGINEER: Albert Ortiz MD INDICATION: I48.91 Unspecified atrial fibrillation Baseline Rhythm * The baseline rhythm was Sinus Rhythm with heart rates ranged between 52 and 133 beats per minute, with average rate of 77 beats per minute. A-V Conduction * No Second Degree AV Block Type II. * No Third Degree AV Block. * No Pauses. Supraventricular Arrhythmia * There were 9,886 Supraventricular Ectopic beats with a burden of <1%. * 3 Supraventricular Tachycardia events - the longest episode was 2.4s on 02/13 02:44, and the fastest episode was 143 BPM on 03/06 19:13. Ventricular Arrhythmia * There were 65,406 Ventricular Ectopic beats with a burden of 2%. * 8 Ventricular Tachycardia events - the longest episode was 2.3s on 02/22 11:55, and the fastest episode was 170 BPM on 02/19 15:30. Atrial Fibrillation * No Atrial Fibrillation. Patient Triggered Events * 3 patient triggered events, no symptoms were specified. SUMMARY: No AF noted. Normal monitor, no significant arrhythmia burden noted. No symptom rhythm correlation us Jameson Coffman MD CV VASCULAR ORDERABLES Iris l Result NAT CARDIOVASCULAR from Last 3 Months Insurance Care Teams Kindergarten Teacher Relationship Specialty Start Date End Date Ryan Cavanaugh MD 3 [facility], [address] [id number] PCP - General FAMILY PRACTICE 12/30/24
--- OUTSIDE RECORDS SUMMARY | 2025-06-02 08:59 | XMS_ITS | Encounter Summary ---
Author Organization [facility] Address [address] [place] [id number] Care Team Providers Care Orthopedics Teacher Name Role Phone Ryan Cavanaugh MD Primary Care Provider [phone] Encounter Details Date Type Department Care Team (Latest Contact Info) Description 04/16/2025 Results [facility] [address] [place] [phone] Sylvia Ivey RN CLINIC - OUTPATIENT EVENT RECORDER (ECG) UP TO 30 DAYS COMPLETE (Holter) Social History Tobacco Use Types Packs/Day Years Used Date Smoking Tobacco: Never Smokeless Tobacco: Never Alcohol Use Standard Drinks/Week Comments Not Currently 0 (1 standard drink = 0.6 oz pur e alcohol) PHQ-2 Answer Date Recorded Patient Health Questionnaire-2 Score 0 03/29/2025 Comments Unknown Sex and Gender Information Value Date Recorded Sex Assigned at Female 01/16/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 [address] [place] [address] 06/21/2025 1:00 PM CDT Office Visit [facility] [address] [facility], [address] [place] [address] Jonelle Wolfe MD [address] [facility] [place] [place] [address] 06/26/2025 11:[address] [facility] Computer [employer] [address] Jameson Coffman MD Three [facility]. [address] [place] [address] documented as of this encounter Visit Diagnoses Not on filedocumented in this encounter Care Teams Orthopedics Teacher Relationship Specialty Start Date End Date Ryan Cavanaugh MD 3 [facility], [address] [place] [address] PCP - General FAMILY PRACTICE 12/30/24 documented as of this encounter
--- OUTSIDE RECORDS SUMMARY | 2025-06-02 08:59 | XMS_ITS ---
Author Organization [facility] Address [address] [facility] [address] [place] [address] Care Team Providers Care Dial Printer Name Role Phone Migration, Provider Unavailable Unavailable REASON FOR VISIT EMR-Alexis Encounters Encounter Location Date Provider Diagnosis Migrated_Facility 0 0 04/21/2025 Provider Migration Plan Of Treatment No Information Progress Notes * ZE MIDDLETON ADOB:[birth year] (60 yo F)Acc No.[id number]:04/21/2025 Patient: ZE GEE :1965 A ge:60 Y S ex:Female Address:[address] [place] [address], [id number] Subjective: * Chief Complaints: * E MR-Alexis * * Date:
--- OUTSIDE RECORDS SUMMARY | 2025-06-02 08:59 | XMS_ITS | Patient Health Record ---
Author Organization [facility] Address [address] [facility] [address] [place] [address] Care Team Providers Care Commercial Litigation Paralegal Name Role Phone Migration, Provider Unavailable Unavailable Reason For Referral No Information Encounters Encounter Location Date Provider Diagnosis Migrated_Facility 0 0 04/21/2025 Provider Migration Migrated_Facility 0 0 04/22/2025 Provider Migration Plan Of Treatment No Information
[2025-06-02 09:08] VITALS: BP 112/61; PULSE 63; RESP 18; TEMP 36.4; O2SAT 98
== END 2025-06-02 09:20 | disposition home or self-care (01) ==
PROVIDERS: Emergency Provider Nurse Practitioner Family
DX: H10.33 Unspecified acute conjunctivitis, bilateral (principal); M85.80 Other specified disorders of bone density and structure, unspecified site; Z79.82 Long term (current) use of aspirin
CPT/HCPCS: 99213; G0463